=== PATIENT | male | born 1975 | race Caucasian/White ===

== ENCOUNTER 2017-05-27 15:19 | Emergency (ER) | payer OTHER ==
[~2017-05-27] VITALS: Ht 175.3 cm; Wt 113.4 kg
[~2017-05-27 15:19] MED LIST: ADVIL200 M2 PO; CYCLOBENZAPRINE10 M1 PO; DEEP SEA44 ML NAS; FUROSEMIDE20 M1 PO; LIDOCAINE1 EACH TOP; LIPITOR10 M1 PO; LOVENOX120 MG/0.1 SC; MAGNESIUM OXID400 M1 PO; MEDROL4 M2 PO; MONTELUKAST SOD10 M1 PO; NAPROSYN500 M1 PO; NAPROXEN500 M2 PO; SENNA PLUS TAB1 EACH PO; SODIUM CHLORIDE1 G2 PO; VALIUM2 M1 PO
--- NOTE | 2017-05-27 15:38 | ED GENERAL ADULT ---
See Addendum History of Present Illness General Chief Complaint: General Adult Stated Complaint: SIB DR. BLACK Source: patient Exam Limitations: no limitations Vital Signs & Intake/Output Vital Signs & Intake/Output Vital Signs Date Time Temp Pulse Resp B/P B/P Pulse O2 O2 Flow FiO2 Mean Ox Delivery Rate 05/27 2125 97.3 87 18 106/65 98 05/27 1652 98.1 85 16 99/62 97 Room Air 05/27 1532 97.4 95 20 122/81 97 Room Air Allergies Coded Allergies: NSAIDS (Non-Steroidal Anti-Inflamma (PER PT CANT TAKE DUE TO LIVER 05/27/17) codeine (PER PT VERY RAPID HEART RATE 05/27/17) Triage Note: PT STATES HE WAS SENT IN BY DR. BLACK TO HAVE FLUID DRAINED FROM HIS ABD. PT STATES THE LAST TIME HE WAS HERE HE HAD A SAMPLE TAKEN BUT NEVER HAD A "DECENT AMOUNT TAKEN OUT". PT REPORTS HAVING A HARD TIME BREATHING WITH ALL THE FLUID ON THEM. Triage Nurses Notes Reviewed? yes Onset: Gradual Duration: week(s): (3), constant, continues in ED, getting worse Timing: single episode today Injury Environment: home Severity: mild, moderate Severity Numbers: 5 No Modifying Factors: none HPI: 41-year-old male past medical history of newly diagnosed liver cancer sent in by Dr. black for evaluation of ascites. Patient states that over the past few weeks and she was diagnosed with liver cancer he has had gradually increasing amounts of fluid and Is getting the point now it's making it difficult for him to breathe and becoming painful. He had a diagnostic paracentesis done but never therapeutic 1. He denies any fevers or significant abdominal pain. No chest pain or hemoptysis. He currently is not on chemotherapy. He is anticoagulated. (Luis HERNANDEZ,Dragan) Reconcile Medications Cyclobenzaprine HCl 10 MG TABLET 1 TAB PO TID PRN MUSCLE SPASM Enoxaparin Sodium (Lovenox) 120 MG/0.8 ML SYRINGE 1 INJ SC BID CLOT . Furosemide 20 MG TABLET 1 TAB PO DAILY PRN edema . Lidocaine 5 % ADH..PATCH 1 PAT TOP DAILY PAIN . Magnesium Oxide (Magnesium) 400 MG CAPSULE 1 CAP PO DAILY SUPPLEMENT ( Reported) Montelukast Sodium 10 MG TABLET 1 TAB PO DAILY allergies/resp. (Reported) Naproxen (Naprosyn) 500 MG TABLET 1 TAB PO BID PRN back pain Sennosides/Docusate Sodium (Senna Plus Tablet) 8.6 MG-50 MG TABLET 1 TAB PO BID PRN CONSTIPATION . Sodium Chloride 1 GRAM TABLET 1 TAB PO TID SUPPLEMENT (Reported) Sodium Chloride (Deep Sea) 0.65 % SPRAY 2 SPRAY [place] Q4P PRN CONGESTION . (Omari Wiggins) Past History Travel History Traveled to [place] past 21 day No Medical History Any Pertinent Medical History? 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 No (Dragan Whitney) Review of Systems Review of Systems Constitutional: Reports: no symptoms. EENTM: Reports: no symptoms. Respiratory: Reports: see HPI, short of breath. Cardiovascular: Reports: peripheral edema. GI: Reports: see HPI, bloating, distention. Genitourinary: Reports: no symptoms. Musculoskeletal: Reports: no symptoms. Skin: Reports: no symptoms. Neurological/Psychological: Reports: no symptoms. Hematologic/Endocrine: Reports: no symptoms. Immunologic/Allergic: Reports: no symptoms. All Other Systems: Reviewed and Negative (Dragan Whitney) Physical Exam Physical Exam General Appearance: well developed/nourished, no apparent distress, alert, awake , obese Head: atraumatic, normal appearance Eyes: Bilateral: PERRL, EOMI, other (jaundice). Ears, Nose, Throat: normal pharynx, normal ENT inspection, hearing grossly normal Neck: normal inspection, supple, full range of motion Respiratory: normal breath sounds, chest non-tender, no respiratory distress, lungs clear Cardiovascular: regular rate/rhythm, normal peripheral pulses Peripheral Pulses: 2+ radial (R), 2+ radial (L) Gastrointestinal: normal bowel sounds, soft, non-tender, distention, large volume ascites, multiple striae and ecchymosis Back: normal inspection, normal range of motion, no vertebral tenderness Extremities: normal range of motion, nonpitting edema present bilaterally Neurologic/Psych: no motor/sensory deficits, awake, alert, oriented x 3 Skin: intact, normal color, warm/dry Lymphatic: no anterior cervical estefani Core Measures ACS in differential dx? No CVA/TIA Diagnosis: No Sepsis Present: No Sepsis Focused Exam Completed? No (Luis HERNANDEZ,Dragan) Progress Differential Diagnoses I considered the following diagnoses in my evaluation of the patient: [Ascites, liver cancer, spontaneous bacterial peritonitis, sepsis] Plan of Care: Orders Procedure Date/time Status Add-on Test (ER Only) 05/27 1738 Active CULTURE,BODY FLUID 05/27 1733 Active CYTOLOGY SPECIMEN 05/27 1733 Active BODY FLUID TOTAL PROTEIN 05/27 1733 Complete BODY FLUID CELL COUNT 05/27 1733 Complete BODY FLUID ALBUMIN 05/27 173 Complete ALBUMIN 05/27 173 Complete PARTIAL THROMBOPLASTIN TIME 05/27 160 Complete PROTHROMBIN TIME 05/27 160 Complete COMPREHENSIVE METABOLIC PANEL 05/27 153 Complete CBC WITHOUT DIFFERENTIAL 05/27 1538 Complete Laboratory Tests 05/27/17 1830: Fluid WBC 200 H, Fld Total RBCs Counted 1000 H 05/27/17 1830: Albumin < 1.0 L, Lymphocytes 17, % Normal PMNs 3, Misc Hematology Test , Fluid Total Protein < 2.0, Fluid Albumin < 1.0 05/27/17 1601: Anion Gap 14, Estimated GFR > 60, BUN/Creatinine Ratio 27.5 H, Glucose 129 H, Calcium 9.7, Total Bilirubin 13.8 H, AST 330 H, ALT 103 H, Alkaline Phosphatase 396 H, Total Protein 6.8, Albumin 2.6 L, Globulin 4.2, Albumin/ Globulin Ratio 0.6 L, PT 14.6 H, INR 1.40 H, APTT 49 H, CBC w Diff MAN DIFF ORDERED, RBC 4.59 L, MCV 93.0, MCH 31.0, RDW 19.5 H, MPV 8.6, Segmented Neutrophils 78 H, Band Neutrophils 3, Lymphocytes 8 L, Monocytes 11 H, Platelet Estimate ADEQUATE, Poikilocytosis 1+, Anisocytosis 1+, Macrocytic Cells FEW, Target Cells FEW, PUBS MCHC 33.3 Microbiology 05/27 1830 BODY FLUID: Body Fluid Culture - RECD 05/27 1830 BODY FLUID: Gram Stain - RECD Patient seen and evaluated. He has a very large amount of abdominal ascites. Making it difficult for him to breathe. He was just diagnosed with liver cancer. He denies any fevers or chills. Patient had a diagnostic and therapeutic paracentesis done in the ER performed by Omari Dubose. Patient reports feeling much much better. 50 g of albumin was ordered to replace the 6 L that we removed. Depending on the results of the ascites evaluation will determine the patient's disposition. Evaluation of the patient's ascites fluid does not reveal any evidence of infection. He can use to feel much better and the paracentesis. Patient does not ambulate at baseline. He does not feel dizzy or lightheaded. No chest pain shortness of breath or abdominal pain. There is no leakage of fluid from the paracentesis site. Patient is not orthostatic. He is feeling well. He has a follow-up with his oncologist on Wednesday. He has a follow-up also tomorrow for an MRI. Discussed return precautions in detail. Patient is nontoxic-appearing and agrees the plan. Case discussed with Dr. March and he agrees Initial ED EKG: none (Dragan Whitney) Departure Departure Disposition: HOME OR SELF CARE Condition: Stable Clinical Impression Primary Impression: Ascites Qualifiers: Ascites type: malignant Qualified Code: R18.0 - Malignant ascites Referrals: Beth POLANCO,Shaw Graham (PCP/Family) Additional Instructions: Make a follow-up appointment with her primary care doctor and oncologist as soon as possible. Monitor your symptoms return with any concerns. Departure Forms: Customer Survey General Discharge Information (Dragan Whitney) PA/BLAST FURNACE TENDER Co-Sign Statement Statement: ED Attending supervision documentation- x I saw and evaluated the patient. I have also reviewed all the pertinent lab results and diagnostic results. I agree with the findings and the plan of care as documented in the PA's/BLAST FURNACE TENDER's documentation. [] I have reviewed the ED Record and agree with the PA's/BLAST FURNACE TENDER's documentation. [] Additions or exceptions (if any) to the PAs/BLAST FURNACE TENDER's note and plan are summarized below: [] (Benny POLANCO,Jaydon) Procedures Additional Procedures Progress: Paracentesis was advised to be performed by me Discussed risks and benefits with patient was signed consent Using ultrasound initially significantly ascites was noted to the right quadrant markings were made Using sterile technique of chlorhexidine and then was used approximate 10 mL of 1% lidocaine was used for local anesthesia Incision was made approximately 3 mm The catheter and trocar were inserted using A Z-technique, straw-colored ascites was removed Approximately 6 L was removed Bandage was placed Patient tolerated well No complications (Omari Wiggins) Critical Care Note Critical Care Note Critical Care Time: non-applicable (Dragan Whitney)
[2017-05-27 16:08] LABS: HEMATOCRIT 42.7 % (42-52); MEAN CORPUSCULAR HGB CONC 33.3 G/DL (33.0-37.0); MEAN PLATELET VOLUME 8.6 FL (7.4-10.4); PLATELET COUNT 253 /CUMM (130-400); RBC DISTRIBUTION WIDTH 19.5 % (11.5-14.5); RED BLOOD CELL CT 4.59 /CUMM (4.70-6.10)
[2017-05-27 17:58] LABS: PT 14.6 SEC (9.4-12.5); PTT 49 SEC (25-37)
[2017-05-27] MEDS ORDERED: MAGNESIUM400 M1 PO (19:17)
[2017-05-27] MEDS ORDERED: SODIUM CHLORIDE1 G2 PO (19:18)
[2017-05-27 21:25] VITALS: BP 106/65
== END 2017-05-27 22:09 ==
LOC: ERH 15:19
PROVIDERS: Physician Assistant Medical
DX: R18.8 Other ascites (principal); C22.9 Malignant neoplasm of liver, not specified as primary or secondary
CPT/HCPCS: 87075; 88305; 96374; P9047

== ENCOUNTER 2017-07-06 16:02 | Inpatient (IN) | payer OTHER ==
[~2017-07-06] VITALS: Ht 177.8 cm; Wt 89.8 kg
[~2017-07-06 16:02] MED LIST changes: +MAGNESIUM400 M1 PO
--- NOTE | 2017-07-06 16:07 | ED GENERAL ADULT ---
History of Present Illness General Chief Complaint: Altered Mental Status Stated Complaint: BIBA AMS Source: patient, family, EMS Exam Limitations: confusion, poor historian Vital Signs & Intake/Output Vital Signs & Intake/Output Vital Signs Date Time Temp Pulse Resp B/P B/P Pulse O2 O2 Flow FiO2 Mean Ox Delivery Rate 07/06 1843 98.6 88 18 118/66 99 Room Air 07/06 1629 97.9 86 16 117/66 95 Room Air Allergies Coded Allergies: NSAIDS (Non-Steroidal Anti-Inflamma (PER PT CANT TAKE DUE TO LIVER 05/27/17) codeine (PER PT VERY RAPID HEART RATE 05/27/17) Reconcile Medications Cyclobenzaprine HCl 10 MG TABLET 1 TAB PO TID PRN MUSCLE SPASM Enoxaparin Sodium (Lovenox) 120 MG/0.8 ML SYRINGE 1 INJ SC BID CLOT . Furosemide 20 MG TABLET 1 TAB PO DAILY PRN edema . Lidocaine 5 % ADH..PATCH 1 PAT TOP DAILY PAIN . Magnesium Oxide (Magnesium) 400 MG CAPSULE 1 CAP PO DAILY SUPPLEMENT ( Reported) Montelukast Sodium 10 MG TABLET 1 TAB PO DAILY allergies/resp. (Reported) Naproxen (Naprosyn) 500 MG TABLET 1 TAB PO BID PRN back pain Sennosides/Docusate Sodium (Senna Plus Tablet) 8.6 MG-50 MG TABLET 1 TAB PO BID PRN CONSTIPATION . Sodium Chloride 1 GRAM TABLET 1 TAB PO TID SUPPLEMENT (Reported) Sodium Chloride (Deep Sea) 0.65 % SPRAY 2 SPRAY [place] Q4P PRN CONGESTION . Triage Nurses Notes Reviewed? yes Onset: Abrupt Duration: day(s):, constant, continues in ED Timing: recent history Injury Environment: home No Modifying Factors: none HPI: 41-year-old male comes into the emergency room for further evaluation of increased weakness and confusion. Symptoms being going on recently for the past couple days. Patient has a history of liver CA that was recently diagnosed and is currently undergoing chemotherapy. He has had some difficulty with ambulation and falling at home. Increase confusion. No vomiting. Past History Travel History Traveled to [place] past 21 day No Medical History Any Pertinent Medical History? 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 No Review of Systems Review of Systems Constitutional: Reports: see HPI. EENTM: Reports: no symptoms. Respiratory: Reports: no symptoms. Cardiovascular: Reports: no symptoms. GI: Reports: see HPI. Genitourinary: Reports: no symptoms. Musculoskeletal: Reports: no symptoms. Skin: Reports: no symptoms. Neurological/Psychological: Reports: see HPI. Hematologic/Endocrine: Reports: no symptoms. Immunologic/Allergic: Reports: no symptoms. All Other Systems: Reviewed and Negative Physical Exam Physical Exam General Appearance: alert, awake, lethargic, mild distress, obese Head: atraumatic Eyes: Bilateral: EOMI. Ears, Nose, Throat: normal ENT inspection, hearing grossly normal Neck: normal inspection Respiratory: no respiratory distress Cardiovascular: regular rate/rhythm Gastrointestinal: non-tender, distention Back: decreased range of motion Extremities: pedal edema Neurologic/Psych: awake, oriented x 3 Skin: intact, normal color Core Measures ACS in differential dx? No CVA/TIA Diagnosis: No Sepsis Present: No Sepsis Focused Exam Completed? No Progress Differential Diagnoses I considered the following diagnoses in my evaluation of the patient: Sepsis, SBP, hepatic encephalopathy, UTI, metastatic disease, Plan of Care: Orders Procedure Date/time Status Heart Healthy Diet 07/07 B Active LACTIC ACID 07/06 1907 Active Misc Message 07/06 184 Active ED Holding Orders 07/06 184 Active Admit to inpatient 07/06 184 Active Vital Signs 07/06 184 Active Code Status 07/06 1840 Active BLOOD CULTURE 07/06 1607 Active URINALYSIS 07/06 1607 Complete TROPONIN LEVEL 07/06 1607 Complete PARTIAL THROMBOPLASTIN TIME 07/06 1607 Complete PROTHROMBIN TIME 07/06 1607 Complete LIPASE 07/06 1607 Complete LACTIC ACID 07/06 1607 Complete COMPREHENSIVE METABOLIC PANEL 07/06 1607 Complete CBC WITHOUT DIFFERENTIAL 07/06 1607 Complete AMMONIA LEVEL 07/06 1607 Complete EKG 07/06 1607 Active Laboratory Tests 07/06/17 1909: Lactic Acid Pending 07/06/17 1834: Urine Color [place], Urine Clarity HAZY H, Urine pH 6.0, Ur Specific [place] >= 1.030, Urine Protein NEG, Urine Ketones NEG, Urine Nitrite NEG, Urine Bilirubin NEG@ICTO, Urine Urobilinogen 0.2, Ur Leukocyte Esterase TRACE H, Ur Microscopic SEDIMENT EXAMINED, Urine RBC 50-75 H, Urine WBC 5-10 H, Ur Epithelial Cells RARE, Urine Crystals 1+ CA OX H, Urine Bacteria RARE H, Hyaline Casts 5-10 H, Urine Mucus MOD H, Urine Hemoglobin MOD H, Urine Glucose NEG 07/06/17 1615: Anion Gap 10, Estimated GFR > 60, BUN/Creatinine Ratio 17.8, Glucose 84, Lactic Acid 4.1 H, Calcium 11.2 H, Total Bilirubin 3.9 H, AST 283 H, ALT 82 H, Alkaline Phosphatase 223 H, Ammonia 54 H, Troponin I < 0.01, Total Protein 6.7 , Albumin 2.3 L, Globulin 4.4 H, Albumin/Globulin Ratio 0.5 L, Lipase 85, PT 16.8 H, INR 1.61 H, APTT 50 H, CBC w Diff NO MAN DIFF REQ, RBC 4.57 L, MCV 94.7 H, MCH 30.1, MCHC 31.7 L, RDW 17.4 H, MPV 8.9, Gran % 65.4, Lymphocytes % 22.7, Monocytes % 9.3, Eosinophils % 2.4, Basophils % 0.2, Absolute Granulocytes 9.6 H, Absolute Lymphocytes 3.3, Absolute Monocytes 1.4 H, Absolute Eosinophils 0.4, Absolute Basophils 0 Microbiology 07/06 1607 BLOOD: Blood Culture - ORD 07/06 1607 BLOOD: Blood Culture - ORD Initial ED EKG: normal sinus rhythm, rate (88), low voltage Departure Departure Disposition: STILL A PATIENT Condition: Stable Clinical Impression Primary Impression: Hepatic encephalopathy Referrals: Beth POLANCO,Shaw Graham (PCP/Family) Departure Forms: Customer Survey General Discharge Information Admission Note Spoke With: Selina Fuentes MD Documentation of Exam: Documentation of any treatments & extenuating circumstances including Concerns Regarding Discharge (functional status, medication knowledge or non-compliance, living conditions, etc.) that warrant an admission rather than observation: Patient will require repeat labs. Lactulose. GI consultation. Physical therapy consultation. High risk. Medically not safe for discharge. unsteady and unable to ambulate without falling. GI was consulted and will see patient tomorrow. Critical Care Note Critical Care Note Critical Care Time: non-applicable
[2017-07-06 16:32] LABS: ABSOLUTE BASOPHIL COUNT 0 /CUMM (0.0-0.2); ABSOLUTE EOSINOPHIL COUNT 0.4 /CUMM (0.0-0.7); ABSOLUTE GRANULOCYTE CT 9.6 /CUMM (1.4-6.5); ABSOLUTE LYMPH COUNT 3.3 /CUMM (1.2-3.4); ABSOLUTE MONOCYTE COUNT 1.4 /CUMM (0.10-0.60); BASOPHIL % 0.2 % (0.0-2.0); EOSINOPHIL % 2.4 % (0-5); GRANULOCYTE % 65.4 % (42.2-75.2); HEMATOCRIT 43.3 % (42-52); MEAN CORPUSCULAR HGB 30.1 PG (27.0-31.0); MEAN CORPUSCULAR HGB CONC 31.7 G/DL (33.0-37.0); MEAN CORPUSCULAR VOLUME 94.7 FL (80.0-94.0); MEAN PLATELET VOLUME 8.9 FL (7.4-10.4); PLATELET COUNT 287 /CUMM (130-400); RBC DISTRIBUTION WIDTH 17.4 % (11.5-14.5); RED BLOOD CELL CT 4.57 /CUMM (4.70-6.10); WHITE BLOOD CELL COUNT 14.7 /CUMM (4.8-10.8)
[2017-07-06 16:42] LABS: PT 16.8 SEC (9.4-12.5); PTT 50 SEC (25-37)
--- NOTE | 2017-07-06 20:52 | History & Physical ---
Sanjeev POLANCO,[facility] 07/06/172050: General Information and HPI MD Statement: I have seen and personally examined YOLANDA MCDOWELL and documented this H&P. The patient is a 41 year old M who presented with a patient stated chief complaint of [AMS]. Source of Information: patient, family Exam Limitations: not alert/orientated History of Present Illness: Most of the history is given per the family of the patient. 41y old gentleman with PMH obesity, hyperlipidemia, and back pain last discharged on 05/18/17 found to have multiple hepatic masses with hepatic failure and ascites and thrombus extending to right atrium presenting for altered mental status per the family. The family states that the patient was started on seratinib by Dr. Sevilal around 2.5-3 weeks ago. He has got paracentesis last wednesday with 4L removed. The family has noted that the patient has had 1 week of worsening progressive unsteadyness of his feet. He has had 3 days diffulty walking. Yesterday the patient fell because his knees gave out. The patient had an aid next to him and helped brace him. The patient did not hit his head but the family states it was a hard fall. The patient denies any vision changes, lightheadedness, cp, palpitations, or sweats/feelings of warmth during the fall. The family states that the patient has been having word finding difficulty and then gets frustrated. They state his sentences are no longer making any sense. They also state that his hands are giving out. And will flap/flex after several seconds. The family also states the patient is falling asleep always eating. They state his appetite has been declining since his last admission. Last night the family noticed that the patient did not urinate last night and finally urinated in the emergency department. They state today his urination is very dark. The patient has some with his bowel since Wednesday. The patient's family has also noticed leg swelling which is better with elevation. Diffuse itchiness which has been getting worse. And her chronic cough. The patient states that he has chest tightness. Which only occurs with deep breath. The family states that the patient has had vomiting for the past 8 months. However the patient has never had projectile vomiting until today. The patient was seen to vomit twice during exam. The family states that the vomiting has not gotten worse after chemotherapy. The patient states that his cough causes him to vomit. Diffuse states that the patient was also found to have 2 stress fractures of his spine during our patient imaging. In that the patient does not have any metastases to his bones. The patient denies any fevers or chills. Allergies/Medications Allergies: Coded Allergies: NSAIDS (Non-Steroidal Anti-Inflamma (PER PT CANT TAKE DUE TO LIVER 05/27/17) codeine (PER PT VERY RAPID HEART RATE 05/27/17) Home Med list Cyclobenzaprine HCl 10 MG TABLET 1 TAB PO TID PRN MUSCLE SPASM Enoxaparin Sodium (Lovenox) 120 MG/0.8 ML SYRINGE 1 INJ SC BID CLOT . Furosemide 20 MG TABLET 1 TAB PO DAILY PRN edema . Lidocaine 5 % ADH..PATCH 1 PAT TOP DAILY PAIN . Magnesium Oxide (Magnesium) 400 MG CAPSULE 1 CAP PO DAILY SUPPLEMENT ( Reported) Montelukast Sodium 10 MG TABLET 1 TAB PO DAILY allergies/resp. (Reported) Naproxen (Naprosyn) 500 MG TABLET 1 TAB PO BID PRN back pain Sennosides/Docusate Sodium (Senna Plus Tablet) 8.6 MG-50 MG TABLET 1 TAB PO BID PRN CONSTIPATION . Sodium Chloride 1 GRAM TABLET 1 TAB PO TID SUPPLEMENT (Reported) Sodium Chloride (Deep Sea) 0.65 % SPRAY 2 SPRAY [place] Q4P PRN CONGESTION . Past History Travel History Traveled to [place] past 21 day No Medical History Neurological: NONE EENT: NONE Cardiovascular: hyperlipidemia Respiratory: NONE Gastrointestinal: NONE Hepatic: elevated enzymes Renal: NONE Musculoskeletal: chronic back pain Psychiatric: NONE Endocrine: NONE Blood Disorders: NONE Cancer(s): LIVER CA [employer]PER[employer]OR/Reproductive: NONE History of MRSA: No History of VRE: No History of CDIFF: No Surgical History Surgical History: appendectomy Past Family/Social History Psychosocial History Services at Home: None Review of Systems Review of Systems Constitutional: Reports: see HPI (AMS, decrease appetite). Denies: chills, fever. Cardiovascular: Reports: see HPI (chest tightness), peripheral edema. Respiratory: Reports: cough. GI: Reports: nausea, vomiting. Genitourinary: Reports: see HPI (decrease urine output), discharge. Musculoskeletal: Reports: see HPI (back pain). Neurological/Psychological: Reports: see HPI (aphasia). Exam & Diagnostic Data Last 24 Hrs of Vital Signs/I&O Vital Signs Date Time Temp Pulse Resp B/P B/P Pulse O2 O2 Flow FiO2 Mean Ox Delivery Rate 07/07 0654 98.0 107 16 114/72 95 07/06 2305 97.9 89 18 122/78 94 Room Air 07/06 2233 97.7 97 14 115/83 96 Room Air 07/06 2106 98.0 95 16 115/72 97 Room Air 07/06 1843 98.6 88 18 118/66 99 Room Air 07/06 1629 97.9 86 16 117/66 95 Room Air Intake & Output 07/07 1600 07/07 0800 07/07 0000 Intake Total 240 1000 Output Total 300 Balance -60 1000 Intake, IV 1000 Intake, Oral 240 0 Number 2 Bowel Movements Output, Urine 300 Patient 198 lb Weight Weight Reported by Patient Measurement Method Physical Exam General Appearance Alert, Cooperative, No Acute Distress, jaundace Skin dry oral mucosa HEENT no JVD Cardiovascular Regular Rate, Normal S1, Normal S2 Lungs Clear to Auscultation, Normal Air Movement Abdomen distended abd, tender to palpation Extremities pitting edema, urine very dark color Last 24 Hrs of Labs/Herber: Laboratory Tests 07/07/17 0758: Sodium Pending, Potassium Pending, Chloride Pending, Carbon Dioxide Pending, Anion Gap Pending, BUN Pending, Creatinine Pending, BUN/Creatinine Ratio Pending , CBC w Diff Pending, WBC Pending, RBC Pending, Hgb Pending, Hct Pending, MCV Pending, MCH Pending, MCHC Pending, RDW Pending, Plt Count Pending, MPV Pending 07/07/17 0211: Urinalysis HEAVY H, Urine Color EDMOND, Urine Clarity HAZY H, Urine pH 5.5, Ur Specific Forest 1.025, Urine Protein TRACE H, Urine Ketones NEG, Urine Nitrite NEG, Urine Bilirubin POS@ICTO H, Urine Urobilinogen 1.0, Ur Leukocyte Esterase NEG, Ur Microscopic SEDIMENT EXAMINED, Urine RBC 25-50 H, Urine WBC 3-5 H, Ur Epithelial Cells RARE, Urine Crystals 3+ CA OX H, Urine Bacteria FEW H, Hyaline Casts 1-3 H, Urine Mucus FEW, Urine Hemoglobin LARGE H, Urine Glucose NEG 07/06/17 1909: Lactic Acid 3.8 H 07/06/17 1834: Urine Color EDMOND, Urine Clarity HAZY H, Urine pH 6.0, Ur Specific Forest >= 1.030, Urine Protein NEG, Urine Ketones NEG, Urine Nitrite NEG, Urine Bilirubin NEG@ICTO, Urine Urobilinogen 0.2, Ur Leukocyte Esterase TRACE H, Ur Microscopic SEDIMENT EXAMINED, Urine RBC 50-75 H, Urine WBC 5-10 H, Ur Epithelial Cells RARE, Urine Crystals 1+ CA OX H, Urine Bacteria RARE H, Hyaline Casts 5-10 H, Urine Mucus MOD H, Urine Hemoglobin MOD H, Urine Glucose NEG 07/06/17 1615: Anion Gap 10, Estimated GFR > 60, BUN/Creatinine Ratio 17.8, Glucose 84, Lactic Acid 4.1 H, Calcium 11.2 H, Total Bilirubin 3.9 H, AST 283 H, ALT 82 H, Alkaline Phosphatase 223 H, Ammonia 54 H, Troponin I < 0.01, Total Protein 6.7 , Albumin 2.3 L, Globulin 4.4 H, Albumin/Globulin Ratio 0.5 L, Lipase 85, PT 16.8 H, INR 1.61 H, APTT 50 H, CBC w Diff NO MAN DIFF REQ, RBC 4.57 L, MCV 94.7 H, MCH 30.1, MCHC 31.7 L, RDW 17.4 H, MPV 8.9, Gran % 65.4, Lymphocytes % 22.7, Monocytes % 9.3, Eosinophils % 2.4, Basophils % 0.2, Absolute Granulocytes 9.6 H, Absolute Lymphocytes 3.3, Absolute Monocytes 1.4 H, Absolute Eosinophils 0.4, Absolute Basophils 0 Microbiology 07/07 0340 BLOOD: Blood Culture - RECD 07/07 0237 BLOOD: Blood Culture - RECD 07/07 0211 URINE ROUT: Urine Culture - RECD 07/06 2212 BODY FLUID: Body Fluid Culture - COLB 07/06 2212 BODY FLUID: Gram Stain - COLB Assessment/Plan Assessment: A: 41y old gentleman with PMH obesity, hyperlipidemia, and back pain last discharged on 05/18/17 found to have multiple hepatic masses with hepatic failure and ascites and thrombus extending to right atrium presenting for altered mental status most likely due to hepatic encephalopathy P: #Hepatic encephalopathy in the setting of hepatocellular cancer Head CT: No acute intracranial pathology. LA 4.1 -> 3.8 Ammonia 54 LFT: T bili 3.9, AST 283, ALT 82, ALP 223 Trop <.01 -confirm and continue sorafenib dosing - f/u Orell recommendations -Consult GI for possible SBP -Consult IR for diagnostic paracentesis -Continue fluid restriction 1000 mL daily due to ascites - Continue salt tablets -f/u ascites cell count and differential, total protein, albumin, culture -Continue by mouth lactulose -f/u urine cx to r/o infecious cause #decrease urinary output Most likely due to poor by mouth intake BUN 16, creatinine 0.9 -Hold Lasix -Continue to monitor #hyponatremia Na 131 -cont holding lasix -encourage po intake #hypercalcemia 11.2 -most likely due to malignancy. cont to monitor #Thrombus extending into the right atrium -Continue Lovenox 120 mg twice a day #Nausea/vomiting -Continue Zofran #FULL CODE #DVT prophylaxis with Lovenox As Ranked By This Provider Problem List: 1. Hepatic encephalopathy 2. Liver mass 3. Ascites 4. Hypercalcemia 5. Hyponatremia Core Measures/Misc (02/14) Acute Coronary Syndrome ACS Diagnosis: No Congestive Heart Failure Congestive Heart Failure Diagnosis No Cerebrovascular Accident CVA/TIA Diagnosis: No VTE (View Protocol) VTE Risk Factors Acute Medical Illness No Mechanical VTE Prophylaxis d/t Other No VTE Pharm Prophylaxis d/t NA PharmProphylax ordered Sepsis (View protocol) Sepsis Present: No Samira Berumen 07/07/17 0440: Attending MD Review Statement Attending Statement Attending MD Statement: examined this patient, discuss w/resident/PA/BUS BOY, agreed w/resident/PA/BUS BOY, discussed with family, reviewed EMR data (avail), reviewed images, amended to note Attending Assessment/Plan: CC: altered mentation PMH: Hepatocellular carcinoma, thrombus extending up to right atrium Patient was brought in ER by family for increased lethargy and confusion since 2 days. He fell yesterday. He states that his right knee gave out and he fell forward but people supported him so he did not injure himself. On the day of admission patient could not even drink water and his hand was getting jerky movements so they brought him to ER for further evaluation. After previous discharge patient was started on chemotherapy 3 weeks back, he also undergoes recurrent large volume paracentesis last one done approximately 10 days back. Also endorses some abdominal pain, abdominal distention since the last paracentesis, mildly increased leg swelling as compared to past. He did not have any urination since whole day today, no bowel movement in last 2 days area. No fever, chills, flulike symptoms. He has been getting intermittent nausea and vomiting. Vitals: Temperature 97.9, pulse 86, RR 16, blood pressure 117/66, saturating 95% on room air. On exam: A O 3, cooperative, lethargic, no acute distress, neck supple, JVD normal, no lymphadenopathy, mucosa moist, asterixis present, clonus in lower extremities, otherwise no focal neurological deficit, +2 leg right more than left edema, no obvious skin rashes or inflammation CVS: S1-S2, RRR. RS: Clear to auscultate bilaterally. Abdomen: Soft, distended, tender, bowel sounds present. Labs: WBC 14.7, hemoglobin 13.7, hematocrit 43.3, platelets 287, sodium 131, potassium 4.9, chloride 97, bicarbonate 24, BUN 16, creatinine 0.9, glucose 84, calcium 11.2, lactate 4.1, bilirubin 3.9, AST 283, ALT 82, alkaline phosphatase 223, ammonia 54, lipase 85, INR 1.6 CXR: Unremarkable examination CT head: No acute intracranial pathology Assessment and plan Patient was admitted the month of April for multiple medical problems mainly encephalopathy secondary to hypercalcemia was found to have hepatocellular cancer. Patient also had hypoglycemia and hyponatremia and thrombus extending up to right atrium. His kidney injury resolved and he was discharged on Lovenox and outpatient sorafenib. Fluid restriction of 1000 suggested and salt tablets. Patient's bilirubin was 12.1 June 08, trending down, alkaline phosphatase not changed from previous. Persistent mild hypercalcemia. Today patient presents with altered mentation gradually over last 2-3 days, no bowel movement in last 2 days. Mild abdominal distention with pain. Mildly increased lower extremity swelling. Patient is oriented, follows all instructions, no focal weakness but has asterixis and clonus. Patient appears to have hepatitic encephalopathy probably secondary to dehydration, constipation but at the same time SBP could not be excluded. Itchiness has been stable, less likely GI bleed. His WBC is chronically elevated, no significant fever spike. Diagnostic Paracentesis could not be done in ER. + Suspected hepatitic encephalopathy + Hepatocellular cancer + Hypercalcemia + Hyponatremia + Thrombus extending up to right atrium - Admit to general medicine - Hold Lasix - Continue by mouth lactulose - Continue home doses of Lovenox - Continue fluid restriction - Continue salt tablets - Consult IR for diagnostic paracentesis - Obtain cell count and differential, total protein, albumin, culture - Obtain UA and urine culture - Continue sorafenib - Inform oncologist about patient being in hospital - Consult GI - Decreased the dose of morphine, continue adequate in medication - Supportive care for nausea vomiting Robert POLANCO,[facility] 07/07/17 0654: Resident Review Statement Resident Statement: examined this patient, discussed with financial internship, agreed with financial internship, discussed with family Other Findings: Mr. Mcdowell is 41 year old male with past medical history significant for hepatocellular carcinoma, right atrium thrombus, vertebral compression fracture who presented to ED with chief complaint of confusion. Patient was recently started chemotherapy by Dr. Sevilla. Patient has multiple paracentesis recent one was Wednesday last week, 8L was removed. Patient CC is confusion, weakness, recent fall yesterday. No LOC, dizziness, blurry vision. Patein has persistent dry cough and N/V. He had mild tenderness on abdominal exam. Patient reported increase itching and dark urine. Problem list #Hepatocellular CA #Ascites #Hepatic encephalopathy #Hypernatremia chronic Plan Admit to [facility] Start lactulose Call Dr. Sevilla Call GI Continue home medication including chemotherapy Continue Lovenox CT head LP and send for body fluid tests Hold Lasix UA and urine culture F/U blood culture Fluid restriction 1000 ML Obtain CXR to role out hib fracture after the fall, patient reported chest pain code full DVT lovonex 120 BID Dirt regular
[2017-07-06 23:05] VITALS: BP 122/78
[2017-07-07] VITALS (7 sets, daily range): BP systolic 104–118; BP diastolic 68–80
--- NOTE | 2017-07-07 00:52 | RADIOLOGY REPORT ---
EXAMINATION: XR PORTABLE CHEST CLINICAL INFORMATION: Fall. Shortness of breath. Chest pain. COMPARISON: None TECHNIQUE: Portable frontal view of the chest was obtained. 12:28 AM FINDINGS: Lung volume low. Lungs are clear. No pulmonary vascular congestion. No pleural effusion or pneumothorax. No acute osseous abnormality. IMPRESSION: Unremarkable examination.
--- NOTE | 2017-07-07 00:53 | CT SCAN REPORT ---
EXAMINATION: CT HEAD WITHOUT CONTRAST CLINICAL INFORMATION: Confusion. History of liver cancer. COMPARISON: CT head May 09, 2017 TECHNIQUE: Contiguous axial imaging was performed from the skull base to vertex without intravenous administration of contrast. DLP: 612.82 mGy-cm FINDINGS: There is no evidence of acute intracranial hemorrhage or territorial infarction. No abnormal mass effect or midline shift is seen. Tang to white matter differentiation is well preserved. No extra-axial fluid collections are identified. The ventricles are normal in size. There is no abnormal attenuation within the brain parenchyma. The osseous structures and soft tissues are normal. The mastoid air cells and visualized portions of the paranasal sinuses are well aerated. IMPRESSION: No acute intracranial pathology.
--- NOTE | 2017-07-07 04:42 | Admission Certification ---
Admission Certification Certification Statement - As attending physician, I certify that at the time of - admission, based on clinical presentation, severity of - symptoms, need for further diagnostic testing and - therapeutic interventions, and risk of adverse outcomes - without in-hospital treatment, in my clinical assessment, - this patient requires an acute hospital stay for a minimum - of two nights or longer. I have also considered psychsocial - factors such as support system, advanced age, financial - issues, cognitive issues, and failed out-patient treatments, - past re-admission history, safety of patient, and lack of - compliance as applicable. Specific rationale supporting this admission is: Suspected hepatic encephalopathy
--- NOTE | 2017-07-07 06:59 | Cons- Oncology ---
General Information and HPI Consulting Request Date of Consult: 07/07/17 Requested By: Selina Fuentes MD History of Present Illness: 41-year-old gentleman presumptive diagnosis of hepatocellular carcinoma now admitted increasing lethargy and episodes of falling. Patient recently presented with an alpha-fetoprotein > 30,000 and a CAT scan of the liver demonstrating replacement by tumor. The interventional radiology was concerned about bleeding and deferred a biopsy. Patient was also noted to have hypercalcemia. Patient has been placed on sorafenib. Bilirubin has had a documented decrease from 12 to 4. He has required occasional therapeutic paracenteses. Allergies/Medications Allergies: Coded Allergies: NSAIDS (Non-Steroidal Anti-Inflamma (PER PT CANT TAKE DUE TO LIVER 05/27/17) codeine (PER PT VERY RAPID HEART RATE 05/27/17) Home Med List: Cyclobenzaprine HCl 10 MG TABLET 1 TAB PO TID PRN MUSCLE SPASM Enoxaparin Sodium (Lovenox) 120 MG/0.8 ML SYRINGE 1 INJ SC BID CLOT . Furosemide 20 MG TABLET 1 TAB PO DAILY PRN edema . Lidocaine 5 % ADH..PATCH 1 PAT TOP DAILY PAIN . Magnesium Oxide (Magnesium) 400 MG CAPSULE 1 CAP PO DAILY SUPPLEMENT ( Reported) Montelukast Sodium 10 MG TABLET 1 TAB PO DAILY allergies/resp. (Reported) Naproxen (Naprosyn) 500 MG TABLET 1 TAB PO BID PRN back pain Sennosides/Docusate Sodium (Senna Plus Tablet) 8.6 MG-50 MG TABLET 1 TAB PO BID PRN CONSTIPATION . Sodium Chloride 1 GRAM TABLET 1 TAB PO TID SUPPLEMENT (Reported) Sodium Chloride (Deep Sea) 0.65 % SPRAY 2 SPRAY [place] Q4P PRN CONGESTION . Current Medications: Current Medications Sig/[place] Start time Last Medication Dose Route Stop Time Status Admin Enoxaparin Sodium 120 MG BID 07/07 0200 AC 07/07 SC 0310 Lactulose 30 GM TID 07/07 0200 AC 07/07 PO 0310 Lactulose 0 .STK-MED ONE 07/06 1727 DC PO Lactulose 20 GM ONCE ONE 07/06 1715 DC 07/06 PO 07/06 1716 1729 Lidocaine 1 PAT DAILY 07/07 1000 AC EXT Naproxen 500 MG BID PRN 07/06 2345 AC PO Ondansetron HCl 4 MG Q6P PRN 07/07 0630 AC IV Senna/Docusate Sodium 1 TAB BID PRN 07/06 2345 AC PO Sodium Chloride 1,000 MG TID 07/07 1000 AC PO Sodium Chloride 1,000 ML BOLUS ONE 07/06 1715 DC 07/06 IV 07/06 1814 1729 Review of Systems Review of Systems: Patient now denies headaches. Patient denies new shortness of breath cough chest pain or hemoptysis. She denies nausea vomiting or significant abdominal pain. Patient denies dysuria hematuria. Patient denies focal neurologic deficit. 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 Home Services at Home: None Smoking Status: Never Smoked Exam & Diagnostic Data Vital Signs and I&O Vital Signs Date Time Temp Pulse Resp B/P B/P Pulse O2 O2 Flow FiO2 Mean Ox Delivery Rate 07/07 0654 98.0 107 16 114/72 95 / 2305 97.9 89 18 122/78 94 Room Air 07/06 2233 97.7 97 14 115/83 96 Room Air 07/06 2106 98.0 95 16 115/72 97 Room Air 07/06 1843 98.6 88 18 118/66 99 Room Air 07/06 1629 97.9 86 16 117/66 95 Room Air Intake & Output 07/07 0800 07/07 0000 07/06 1600 Intake Total 240 1000 Output Total 300 Balance -60 1000 Intake, IV 1000 Intake, Oral 240 0 Number 1 Bowel Movements Output, Urine 300 Patient 198 lb Weight Weight Reported by Patient Measurement Method Gen.: in NAD ENT: Subtle Scleral ictericus Chest: Normal respiratory effort, decreased breath sounds Cor: RRR, no extra sounds Abdomen: Soft, bowel sounds hypoactive, ascites Extremities: Without clubbing, cyanosis, or asymmetric edema Neurology: Awake, somewhat lethargic, no definite asterixis Skin: No rashes Last 48 Hours of Lab Results: Laboratory Tests 07/07 07/06 0211 1909 Chemistry Lactic Acid (0.7 - 2.1 mmol/L) 3.8 H Urines Urinalysis HEAVY H Urine Color (YEL,AMB,STR) [place] Urine Clarity (CLEAR) HAZY H Urine pH (5.0 - 8.0) 5.5 Ur Specific [place] (1.001 - 1.035) 1.025 Urine Protein (NEG,<30 MG/DL) TRACE H Urine Ketones (NEG) NEG Urine Nitrite (NEG) NEG Urine Bilirubin (NEG) POS@ICTO H Urine Urobilinogen (0.1 - 1.0 EU/dl) 1.0 Ur Leukocyte Esterase (NEG) NEG Ur Microscopic SEDIMENT EXAMINED Urine RBC (0 - 5 /HPF) 25-50 H Urine WBC (0 - 2 /HPF) 3-5 H Ur Epithelial Cells (NONE,FEW) RARE Urine Crystals 3+ CA OX H Urine Bacteria (NEG/NONE) FEW H Hyaline Casts (0/LPF) 1-3 H Urine Mucus (FEW,NONE) FEW Urine Hemoglobin (NEG) LARGE H Urine Glucose (N MG/DL) NEG 07/06 07/06 1834 1615 Chemistry Sodium (137 - 145 mmol/L) 131 L Potassium (3.5 - 5.1 mmol/L) 4.9 Chloride (98 - 107 mmol/L) 97 L Carbon Dioxide (22 - 30 mmol/L) 24 Anion Gap (5 - 16) 10 BUN (9 - 20 mg/dL) 16 Creatinine (0.7 - 1.2 mg/dL) 0.9 Estimated GFR (>60 ml/min) > 60 BUN/Creatinine Ratio (7 - 25 %) 17.8 Glucose (65 - 99 mg/dL) 84 Lactic Acid (0.7 - 2.1 mmol/L) 4.1 H Calcium (8.4 - 10.2 mg/dL) 11.2 H Total Bilirubin (0.2 - 1.3 mg/dL) 3.9 H AST (17 - 59 U/L) 283 H ALT (21 - 72 U/L) 82 H Alkaline Phosphatase (< 127 U/L) 223 H Ammonia (9 - 30 umol/L) 54 H Troponin I (<0.11 ng/ml) < 0.01 Total Protein (6.3 - 8.2 g/dL) 6.7 Albumin (3.5 - 5.0 g/dL) 2.3 L Globulin (1.9 - 4.2 gm/dL) 4.4 H Albumin/Globulin Ratio (1.1 - 2.2 %) 0.5 L Lipase (23 - 300 U/L) 85 Coagulation PT (9.4 - 12.5 SEC) 16.8 H INR (0.90 - 1.17) 1.61 H APTT (25 - 37 SEC) 50 H Hematology CBC w Diff NO MAN DIFF REQ WBC (4.8 - 10.8 /CUMM) 14.7 H RBC (4.70 - 6.10 /CUMM) 4.57 L Hgb (14.0 - 18.0 G/DL) 13.7 L Hct (42 - 52 %) 43.3 MCV (80.0 - 94.0 FL) 94.7 H MCH (27.0 - 31.0 PG) 30.1 MCHC (33.0 - 37.0 G/DL) 31.7 L RDW (11.5 - 14.5 %) 17.4 H Plt Count (130 - 400 /CUMM) 287 MPV (7.4 - 10.4 FL) 8.9 Gran % (42.2 - 75.2 %) 65.4 Lymphocytes % (20.5 - 51.1 %) 22.7 Monocytes % (1.7 - 9.3 %) 9.3 Eosinophils % (0 - 5 %) 2.4 Basophils % (0.0 - 2.0 %) 0.2 Absolute Granulocytes (1.4 - 6.5 /CUMM) 9.6 H Absolute Lymphocytes (1.2 - 3.4 /CUMM) 3.3 Absolute Monocytes (0.10 - 0.60 /CUMM) 1.4 H Absolute Eosinophils (0.0 - 0.7 /CUMM) 0.4 Absolute Basophils (0.0 - 0.2 /CUMM) 0 Urines Urine Color (YEL,AMB,STR) [place] Urine Clarity (CLEAR) HAZY H Urine pH (5.0 - 8.0) 6.0 Ur Specific [place] (1.001 - 1.035) >= 1.030 Urine Protein (NEG,<30 MG/DL) NEG Urine Ketones (NEG) NEG Urine Nitrite (NEG) NEG Urine Bilirubin (NEG) NEG@ICTO Urine Urobilinogen (0.1 - 1.0 EU/dl) 0.2 Ur Leukocyte Esterase (NEG) TRACE H Ur Microscopic SEDIMENT EXAMINED Urine RBC (0 - 5 /HPF) 50-75 H Urine WBC (0 - 2 /HPF) 5-10 H Ur Epithelial Cells (NONE,FEW) RARE Urine Crystals 1+ CA OX H Urine Bacteria (NEG/NONE) RARE H Hyaline Casts (0/LPF) 5-10 H Urine Mucus (FEW,NONE) MOD H Urine Hemoglobin (NEG) MOD H Urine Glucose (N MG/DL) NEG Imaging/Other Studies: [id number] Assessment/Plan Assessment: 1. Change in mental status-likely multifactorial in origin, occluding hepatic encephalopathy and hypercalcemia. Recommend- Treat encephalopathy Treat hypercalcemia with bisphosphonate therapy Follow-up appropriate laboratory 2. Advanced hepatocellular carcinoma-patient should remain on sorafenib 3. CODE STATUS-patient and family are aware of the critical nature of his disease. No definite decision yet has been made. Once no status improved, will readdress Recommendations: .. Consult Acknowledgment - Thank you for your consult request.
--- NOTE | 2017-07-07 09:14 | PN- Housestaff ---
Oziel POLANCO,Luis 07/07/1714: Subjective Follow-up For: altered mental status hepatocellular carcinoma Subjective: confused, intermittently following commands Review of Systems Constitutional: Reports: see HPI. Objective Last 24 Hrs of Vital Signs/I&O Vital Signs Date Time Temp Pulse Resp B/P B/P Pulse O2 O2 Flow FiO2 Mean Ox Delivery Rate 07/07 0900 94 Room Air 07/07 0745 98 118/70 07/07 0654 98.0 107 16 114/72 95 / 2305 97.9 89 18 122/78 94 Room Air 07/06 2233 97.7 97 14 115/83 96 Room Air 07/06 2106 98.0 95 16 115/72 97 Room Air / 1843 98.6 88 18 118/66 99 Room Air 07/06 1629 97.9 86 16 117/66 95 Room Air Intake & Output 07/07 1600 07/07 0800 07/07 0000 Intake Total 683 382 9490 Output Total 300 Balance 240 -60 1000 Intake, IV 1000 Intake, Oral 240 240 0 Number 1 2 Bowel Movements Output, Urine 300 Patient 89.811 kg Weight Weight Reported by Patient Measurement Method Physical Exam General Appearance: No Acute Distress, confused Cardiovascular: Regular Rate, Normal S1, Normal S2, No Murmurs Lungs: basilar crackles r>l Abdomen: soft distended, mild right sided tenderness on deep palpation Extremities: 3+ lower extremity pitting edema Current Medications: Current Medications Sig/[place] Start time Last Medication Dose Route Stop Time Status Admin Enoxaparin Sodium 120 MG BID 07/07 0200 AC 07/07 SC 0310 Lactulose 30 GM TID 07/07 0200 07/07 PO 0310 Lactulose 0 .STK-MED ONE 07/06 1727 DC PO Lactulose 20 GM ONCE ONE 07/06 1715 DC 07/06 PO 07/06 1716 1729 Lidocaine 1 PAT DAILY 07/07 1000 AC EXT Naproxen 500 MG BID PRN 07/06 2345 AC PO Non-Formulary 0 SEE ADMIN CRITERIA 07/07 729 UNVr Medication ANY Ondansetron HCl 4 MG Q6P PRN 07/07 0630 AC 07/07 IV 0937 Pamidronate Disodium 60 MG ONE ONE 07/07 1030 AC Sodium Chloride 1,000 ML IV 07/07 1829 Rifaximin 550 MG BID 07/07 1009 AC PO Senna/Docusate Sodium 1 TAB BID PRN 07/06 2345 AC PO Sodium Chloride 1,000 MG TID 07/07 1000 AC 07/07 PO 0940 Sodium Chloride 1,000 ML BOLUS ONE 07/06 1715 DC 07/06 IV 07/06 1814 1729 Last 24 Hrs of Lab/Herber Results Last 24 Hrs of Labs/Mics: Laboratory Tests 07/07/17 0758: Anion Gap 9, Estimated GFR > 60, BUN/Creatinine Ratio 21.4, CBC w Diff NO MAN DIFF REQ, RBC 4.40 L, MCV 92.2, MCH 29.9, MCHC 32.5 L, RDW 16.9 H, MPV 9.8, Gran % 73.6, Lymphocytes % 16.0 L, Monocytes % 9.7 H, Eosinophils % 0.2, Basophils % 0.5, Absolute Granulocytes 10.1 H, Absolute Lymphocytes 2.2, Absolute Monocytes 1.3 H, Absolute Eosinophils 0, Absolute Basophils 0.1 07/07/17 0211: Urinalysis HEAVY H, Urine Color [place], Urine Clarity HAZY H, Urine pH 5.5, Ur Specific [place] 1.025, Urine Protein TRACE H, Urine Ketones NEG, Urine Nitrite NEG, Urine Bilirubin POS@ICTO H, Urine Urobilinogen 1.0, Ur Leukocyte Esterase NEG, Ur Microscopic SEDIMENT EXAMINED, Urine RBC 25-50 H, Urine WBC 3-5 H, Ur Epithelial Cells RARE, Urine Crystals 3+ CA OX H, Urine Bacteria FEW H, Hyaline Casts 1-3 H, Urine Mucus FEW, Urine Hemoglobin LARGE H, Urine Glucose NEG 07/06/17 2213: Fluid WBC Cancelled, Fld Total RBCs Counted Cancelled 07/06/17 2213: Fluid Glucose Cancelled, Fluid Total Protein Cancelled, Fluid Albumin Cancelled, Fluid LDH Cancelled, Fluid Amylase Cancelled 07/06/17 1909: Lactic Acid 3.8 H 07/06/17 1834: Urine Color [place], Urine Clarity HAZY H, Urine pH 6.0, Ur Specific [place] >= 1.030, Urine Protein NEG, Urine Ketones NEG, Urine Nitrite NEG, Urine Bilirubin NEG@ICTO, Urine Urobilinogen 0.2, Ur Leukocyte Esterase TRACE H, Ur Microscopic SEDIMENT EXAMINED, Urine RBC 50-75 H, Urine WBC 5-10 H, Ur Epithelial Cells RARE, Urine Crystals 1+ CA OX H, Urine Bacteria RARE H, Hyaline Casts 5-10 H, Urine Mucus MOD H, Urine Hemoglobin MOD H, Urine Glucose NEG 07/06/17 1615: Anion Gap 10, Estimated GFR > 60, BUN/Creatinine Ratio 17.8, Glucose 84, Lactic Acid 4.1 H, Calcium 11.2 H, Total Bilirubin 3.9 H, AST 283 H, ALT 82 H, Alkaline Phosphatase 223 H, Ammonia 54 H, Troponin I < 0.01, Total Protein 6.7 , Albumin 2.3 L, Globulin 4.4 H, Albumin/Globulin Ratio 0.5 L, Lipase 85, PT 16.8 H, INR 1.61 H, APTT 50 H, CBC w Diff NO MAN DIFF REQ, RBC 4.57 L, MCV 94.7 H, MCH 30.1, MCHC 31.7 L, RDW 17.4 H, MPV 8.9, Gran % 65.4, Lymphocytes % 22.7, Monocytes % 9.3, Eosinophils % 2.4, Basophils % 0.2, Absolute Granulocytes 9.6 H, Absolute Lymphocytes 3.3, Absolute Monocytes 1.4 H, Absolute Eosinophils 0.4, Absolute Basophils 0 Microbiology 07/07 0340 BLOOD: Blood Culture - RECD 07/07 0237 BLOOD: Blood Culture - RECD 07/07 0211 URINE ROUT: Urine Culture - RECD 07/06 221 BODY FLUID: Body Fluid Culture - CAN Cancelled: SPECIMEN NOT RECEIVED. 07/06 2212 BODY FLUID: Gram Stain - CAN Cancelled: SPECIMEN NOT RECEIVED. Assessment/Plan Assessment: 41y old gentleman with PMH obesity, hyperlipidemia, and back pain last discharged on 05/18/17 found to have multiple hepatic masses with hepatic failure and ascites and thrombus extending to right atrium presenting for altered mental status most likely due to hepatic encephalopathy Hepatic encephalopathy in the setting of hepatocellular cancer Head CT: No acute intracranial pathology. 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 Hepatic encephalopathy 2. Hyponatremia 3. Ascites 4. Liver mass 5. Hypercalcemia Pain Ratin Pain Location: abdominal Pain Goal: Pain 4 or less Pain Plan: prn Tomorrow's Labs & Rationales: cbc, bep Gina POLANCO,Selina 07/07/17 1342: Attending MD Review Statement Attending Statement Attending MD Statement: examined this patient, discuss w/resident/PA/FAMILY PHYSICIAN, agreed w/resident/PA/FAMILY PHYSICIAN, reviewed EMR data (avail) Attending Assessment/Plan: 41M PMH HTN, HLD, recently diagnosed hepatocellular carcinoma on Sorafenib, IVC thrombus on Lovenox, admitted for metabolic encephalopathy secondary to cirrhosis and hypercalcemia, with ascites on exam. Patient remains confused today but his mental status is improved from yesterday. He is more coherent, though he still becomes confused and tangential. He is A& Ox2. Ascites appreciated on exam. He has two chronic buttock wounds. 1. Metabolic encephalopathy 2. Hepatocellular carcinoma 3. Cirrhosis 4. Hypercalcemia 5. Elevated LFTs 6. Chronic buttock wounds Plan - Will have to go to cardiac monitored floor for the next 8 hours for Pamidronate infusion, then can return to general medicine floor - Will perform paracentesis - Follow GI and oncology recommendations - Monitor calcium, renal function, liver function tests - Continue Lactulose and Rifaximin - Continue home medications - DVT PPx
--- NOTE | 2017-07-07 09:41 | Cons- Wound Care ---
General Information and HPI Consulting Request Date of Consult: 07/07/17 Requested By: Selina Fuentes MD Reason for Consult: Bilateral buttock ulcers present on admission History of Present Illness: Patient is unfortunate 41-year-old with hepatocellular carcinoma admitted with altered mental status and found to have 2 small bilateral buttock ulcers present on admission, these have been present for several weeks having started at home Allergies/Medications Allergies: Coded Allergies: NSAIDS (Non-Steroidal Anti-Inflamma (PER PT CANT TAKE DUE TO LIVER 05/27/17) codeine (PER PT VERY RAPID HEART RATE 05/27/17) Home Med List: Cyclobenzaprine HCl 10 MG TABLET 1 TAB PO TID PRN MUSCLE SPASM Enoxaparin Sodium (Lovenox) 120 MG/0.8 ML SYRINGE 1 INJ SC BID CLOT . Furosemide 20 MG TABLET 1 TAB PO DAILY PRN edema . Lidocaine 5 % ADH..PATCH 1 PAT TOP DAILY PAIN . Magnesium Oxide (Magnesium) 400 MG CAPSULE 1 CAP PO DAILY SUPPLEMENT ( Reported) Montelukast Sodium 10 MG TABLET 1 TAB PO DAILY allergies/resp. (Reported) Naproxen (Naprosyn) 500 MG TABLET 1 TAB PO BID PRN back pain Sennosides/Docusate Sodium (Senna Plus Tablet) 8.6 MG-50 MG TABLET 1 TAB PO BID PRN CONSTIPATION . Sodium Chloride 1 GRAM TABLET 1 TAB PO TID SUPPLEMENT (Reported) Sodium Chloride (Deep Sea) 0.65 % SPRAY 2 SPRAY [place] Q4P PRN CONGESTION . 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 Home Services at Home: None Smoking Status: Never Smoked Exam & Diagnostic Data Vital Signs and I&O Vital Signs Result Date Time Pulse Ox 94 07/07 0900 O2 Delivery Room Air 07/07 899 B/P 118/70 07/07 0645 Pulse 98 07/07 0645 Temp 98.0 07/07 0654 Resp 16 07/07 0654 Intake & Output 07/07 0000 02/06 1600 02/06 0800 Intake Total 1000 Output Total Balance 1000 Intake, IV 1000 Intake, Oral 0 Physical Exam: Exam of the left buttock shows a 1.5 x 0.8 cm stage III pressure ulcer with red fill without undermining sinus tracking or exposed bone over the left attic right buttock has a symmetrical smaller ulcer approximately 1 x 0.3 cm stage III. The patient has markedly reduced albumin suggesting malnutrition. Assessment/Plan Impression/Plan: 41-year-old hepatocellular carcinoma malnutrition admitted with altered mental status and found to have bilateral stage III buttock ulcers. Recommend offloading low air loss mattress and use of thin DuoDERM changed every 2-3 days. Consult Acknowledgment - Thank you for your consult request.
[2017-07-07 09:44] LABS: ABSOLUTE BASOPHIL COUNT 0.1 /CUMM (0.0-0.2); ABSOLUTE EOSINOPHIL COUNT 0 /CUMM (0.0-0.7); ABSOLUTE GRANULOCYTE CT 10.1 /CUMM (1.4-6.5); ABSOLUTE LYMPH COUNT 2.2 /CUMM (1.2-3.4); ABSOLUTE MONOCYTE COUNT 1.3 /CUMM (0.10-0.60); BASOPHIL % 0.5 % (0.0-2.0); EOSINOPHIL % 0.2 % (0-5); GRANULOCYTE % 73.6 % (42.2-75.2); HEMATOCRIT 40.5 % (42-52); MEAN CORPUSCULAR HGB 29.9 PG (27.0-31.0); MEAN CORPUSCULAR HGB CONC 32.5 G/DL (33.0-37.0); MEAN CORPUSCULAR VOLUME 92.2 FL (80.0-94.0); MEAN PLATELET VOLUME 9.8 FL (7.4-10.4); PLATELET COUNT 267 /CUMM (130-400); RBC DISTRIBUTION WIDTH 16.9 % (11.5-14.5); WHITE BLOOD CELL COUNT 13.7 /CUMM (4.8-10.8)
--- NOTE | 2017-07-07 16:03 | Cons- Gastroenterology ---
General Information and HPI Consulting Request Date of Consult: 07/07/17 Requested By: Selina Fuentes MD Reason for Consult: I was notified by the hospitalist service earlier this a.m. of a request for a semi-elective GI consult to assess altered mental status in a patient with end stage multi-focal hepatoma& hyperCa2= due to underlying malignancy. Source of Information: old records Exam Limitations: clinical condition, confusion History of Present Illness: (*Please refer to previous 05/10/17: inpt GI consultation, by Dr. Marlon Jaeger. * Extensive records reviewed). Unfortunate 41 y/o male, with recently diagnosed unresectable multifocal hepatoma, by imaging studies & by markedly elevated AFP (> 32K), in 04/2017. Furthermore, he is not a candidate for RFA/microwave ablation, base on it's size , as it has replaced a huge amount of liver parenchyma. IR deferred a liver bx for fear of bleeding, but this level of AFP is virtually diagnostic for HCC, in and of itself. The patient was receiving outpatient Sorafenib, per Dr. Sevilla. Technically, he is still a full code, but his prognosis is grave, & apparently, a repeat family meeting for goals of care is pending, per oncology. The patient is cirrhotic with ascites. Previous abdominal taps were negative for SBP, with negative ascitic cytology. 05/17/17: Ascitic fluid- SAAG > 1.6, protein < 2.0 (c/w liver/portal HTN etiology of ascites), 1000 RBC, 200 WBC with 3% PMN = absolute #PMN 6. Apparently, there is no history of EtOH, IVDA, blood transfx, tattoos, needlesticks, etc. Previous hepatitis serologies & HIV- negative, with AMANDA negative and normal ferritin. The patient had a history of obesity & HLD. Most likely, he had REID progressing to cirrhosis, ultimately to HCC. Urine toxicology screens & alcohol levels were negative. The patient was recently admitted to [facility] 05/09/17 to 05/18/17, for altered mental status, elevated LFTs, cirrhosis with MELD-Na 27, back pain, PHYLICIA, hypoglycemia & hypercalcemia, with serum calcium up to 17.8. He was treated with IV saline, Pamidronate, & Calcitonin. He was seen by oncology and endocrine, and his hypercalcemia was felt to be a humeral effect of widespread malignancy. 05/12/17 & 05/15/17: MRI abdomen with hepatoma protocol- abnormal filling defect within the intrahepatic IVC, extending up to the right atrium, highly suspicious for nonocclusive tumor thrombus, with recanalization of the umbilical vein. No significant abdominal varices seen. No dilated ducts. Multiple large confluent suspicious enhancing masses throughout the right and left lobes of the liver. Small amount of ascites. 05/14/17: Bone scan revealed left #7th, 8th, & 9th rib lesions from recent fractures, possibly from bony metastases. His back pain was managed with Lidoderm patch & morphine. He had osteopenia & DJD. The patient apparently lost 80 pounds over the prior 6 months, before his 04/2017 admission, perhaps voluntarily. The patient presented to [facility] 07/06/17 at 4:02 PM, BIBA from home, with altered mental status, which apparently had improved in 04/2017 with correction of his hyperCa2+. Upon arrival, BP 117/66, P 86, R 16, T 97.9, O2 sat RA 95%. He was hemodynamically stable & afebrile. 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 He apparently was lethargic and confused for 2 days. He was jaundiced upon presentation. He was given IV NS & lactulose in the ER. He was cultured in the ER and admitted to General Medicine 07/06/17. He was seen by oncology. *He was transferred to Telemetry 07/07/17, in order to receive Pamidronate. He just had an abdominal tap by the medical housestaff to r/o SBP, prior to my GI consult. *Although the patient was reportedly more alert than yesterday, he was only Ox1 (person), & occasionally oriented to place, not to time- "2000," & so it was extremely difficult to get any further meaningful history from the patient, aside from what the computer records stated. 12/11/09: AMANDA-neg 1:40, ferritin 244.2 05/09/17: Utox- neg. [Tylenol] < 10, [EtOH] < 10, salicylate < 1.0 05/09/17: TSHR 2.63, mono spot- neg. 05/09/17: Hep A Ab, Hep Bs Ag, Hep B core Ab, & HepC Ab- all neg. 05/11/17: nl CEA 1.6 05/11/17: *AFP 32,389 (< 6.1); HIV- neg. 05/11/17: elev PTH 57 (14-27), *SPEP- faint M-spike in gamma globulin region, * IPEP- faint IgG lambda monoclonal band, c/w MGUS. 05/12/17: UPEP- neg. 07/06/17: Admission labs 4:15 p.m.- WBC 14.7 (65% gran/9 gran Ab), H/H 13.7/43.3 , MCV 94.7, RDW 17.4, PLT 287, PT 16.8, INR 1.61, PTT 50, glucose 84, BUN/Cr 16/ 0.9, GFR > 60, Na 131, K 4.9, HCO3 24, AG 10, *lactate 4.1-> 3.8, lipase 85, *Ca 11.2, *albumin 2.3, globulin 4.4, TBil 3.9, alk phos 223, AST 283, ALT 82, *NH3 54, troponin < 0.01. 07/06/17: U/A- hazy, jane, > 1.030, 6.0, 50-75 RBC, 5-10 WBC, 5-10 hyaline casts, 1+ Ca ox, rare bact, rare epith, mod Hgb, neg icto, urobil 0.2, neg prot; neg nitrite, tr esterase. 07/07/17: WBC 13.7 (74% gran/10 gran Ab), H/H 13.1/40.5, MCV 92.2, RDW 16.9, PLT 267, BUN/Cr 15/0.7, GFR > 60, Na 130, K 5.0, HCO3 20, AG 9, Ca 11.2, albumin 2.1 , globulin 4.2, TBil 3.6, DBil 3.0, alk phos 207, AST 271, ALT 84. 07/07/17: *Ascitic tap- 160 RBC, 51 WBC (9 PMN/46 L/45 mono-meso), with absolute # PMN= 4.59 polys; *no SBP) 07/07/17: UC- pending. 07/07/17: BC x 2- pending. 07/07/17: Ascitic gram stain, C&S- pending. 07/06/17: EKG- NSR @ 88, nl axis, nl intervals, low voltage, PRWP, NSST without acute change. 07/06/17: XRY-PORTABLE CHEST XRAY- Unremarkable examination. 07/06/17: CT HEAD W/O IV CONTRAST- No acute intracranial pathology. Allergies/Medications Allergies: Coded Allergies: NSAIDS (Non-Steroidal Anti-Inflamma (PER PT CANT TAKE DUE TO LIVER 05/27/17) codeine (PER PT VERY RAPID HEART RATE 05/27/17) Home Med List: Cyclobenzaprine HCl 10 MG TABLET 1 TAB PO TID PRN MUSCLE SPASM Enoxaparin Sodium (Lovenox) 120 MG/0.8 ML SYRINGE 1 INJ SC BID CLOT . Furosemide 20 MG TABLET 1 TAB PO DAILY PRN edema . Lidocaine 5 % ADH..PATCH 1 PAT TOP DAILY PAIN . Magnesium Oxide (Magnesium) 400 MG CAPSULE 1 CAP PO DAILY SUPPLEMENT ( Reported) Montelukast Sodium 10 MG TABLET 1 TAB PO DAILY allergies/resp. (Reported) Naproxen (Naprosyn) 500 MG TABLET 1 TAB PO BID PRN back pain Sennosides/Docusate Sodium (Senna Plus Tablet) 8.6 MG-50 MG TABLET 1 TAB PO BID PRN CONSTIPATION . Sodium Chloride 1 GRAM TABLET 1 TAB PO TID SUPPLEMENT (Reported) Sodium Chloride (Deep Sea) 0.65 % SPRAY 2 SPRAY [place] Q4P PRN CONGESTION . Current Medications: Current Medications Sig/[place] Start time Last Medication Dose Route Stop Time Status Admin Enoxaparin Sodium 120 MG BID 07/07 0200 AC 07/07 SC 0310 Lactulose 30 GM TID 07/07 0200 AC 07/07 PO 1639 Lidocaine 1 PAT DAILY 07/07 1000 AC EXT Naproxen 500 MG BID PRN 07/06 2345 AC PO Ondansetron HCl 4 MG Q6P PRN 07/07 0630 AC 07/07 IV 0937 Pamidronate Disodium 60 MG ONE ONE 07/07 1030 AC 07/07 Sodium Chloride 1,000 ML IV 07/07 1829 1453 Rifaximin 550 MG BID 07/07 1009 AC 07/07 PO 1640 Senna/Docusate Sodium 1 TAB BID PRN 07/06 2345 AC PO Sodium Chloride 1,000 MG TID 07/07 1000 AC 07/07 PO 0940 Sodium Chloride 1,000 ML BOLUS ONE 07/06 1715 DC 07/06 IV 07/06 1814 1729 Sorafenib 200 MG 1700 07/07 1700 AC 07/07 PO 1641 Past History Travel History Traveled to [place] past 21 day No Medical History Blood Transfusion Hx: No Neurological: intermittent confusion- hyperCa2+, PSE, HCC EENT: NONE Cardiovascular: hyperlipidemia Respiratory: NONE Gastrointestinal: NONE Hepatic: cirrhosis, hepatic encephalopathy, elevated enzymes, multifocal HCC- unresectable, not cndidate for RFA- on Sorafenib Renal: resolved PHYLICIA- 04/2017 Musculoskeletal: chronic back pain, osteopenia Psychiatric: NONE Endocrine: hypoglycemia, osteopenia, hyperCa2+ due to malignancy Blood Disorders: coagulopathy (cirrhotic/HCC) Cancer(s): LIVER CA/HCC [facility] PULP/Reproductive: NONE Other Medical Hx: Unobtainable from pt Surgical History Surgical History: appendectomy Family History Relations & Conditions If Any: Relation not specified for: Family history unobtainable Psychosocial History Where Do You Live? Home Who Do You Live With? unknown- possibly father, Jai CarpenterSr mayra. Services at Home: None Primary Language: Bulgarian Smoking Status: Never Smoked ETOH Use: denies use (reportedly) Illicit Drug Use: denies illicit drug use (reportedly) Living Will? unknown Power of Patent Legal Assistant/HCP? unknown Other Social History: Unobtainable Functional Ability ADLs Unknown: dressing, eating, toileting, bathing. Ambulation: unknown IADLs Unknown: shopping, housework, finances, food prep, telephone, transportation, medication admin. Employment History Employment: unknown Profession/Employer: unknown ECHO Results (as available) Date of last Echo 05/13/17 EF% 65 Review of Systems Review of Systems: Full 14 point ROS currently unobtainable from patient, due to altered mental status. Review of Systems All Other Systems: Reviewed and Negative (unobtainable from pt) Exam & Diagnostic Data Vital Signs and I&O Vital Signs Date Time Temp Pulse Resp B/P B/P Pulse O2 O2 Flow FiO2 Mean Ox Delivery Rate 07/07 1447 98.4 97 20 104/68 97 Room Air Room Air 07/07 1400 97.8 80 20 116/80 97 Room Air 07/07 0900 94 Room Air 07/07 0745 98 118/70 07/07 0654 98.0 107 16 114/72 95 07/06 2305 97.9 89 18 122/78 94 Room Air 07/06 2233 97.7 97 14 115/83 96 Room Air 07/06 2106 98.0 95 16 115/72 97 Room Air 07/06 1843 98.6 88 18 118/66 99 Room Air Intake & Output 07/07 1600 07/07 0400 07/06 1600 07/06 0400 07/05 1600 07/05 0400 Intake Total 490 1000 Output Total 750 Balance -260 1000 Intake, IV 10 1000 Intake, Oral 480 0 Number 3 Bowel Movements Output, Urine 750 Patient 198 lb Weight Weight Reported by Patient Measurement Method Physical Exam: Well-developed, somewhat malnourished, chronically ill appearing, cirrhotic yellow male, in no apparent distress. Sclera icteric. Conjunctiva pink. Oropharynx clear. Slightly dry mucucs membranes. No oral thrush. No aphthous ulcers. There is no adenopathy, thyromegaly, or JVD. No peripheral stigmata of inflammatory bowel disease on exam. No definite spiders on the anterior chest wall, nor any gynecomastia. Spine exam: deferred (patient in process of getting abdominal tap). Lungs: clear to A&P, with slight decreased BS at the bases B/L. No wheezing, rales, or rhonchi. Heart exam: regular rate rhythm, S1 and S2, without any murmur, rub, or gallop. Abdominal exam: normal bowel sounds, obese belly, mild RUQ tenderness on deep palpation, without guarding or rebound. Negtaive Smatr sign. Enlarged nodular liver, approximately 24 cm by percussion, with tender edge. No definite mass. Borderline palpable spleen tip. Positive fluid shift. No pulsatile mass. No epigastric bruit. Digital rectal exam: deferred for physician/internist (as patient in midst of abdominal tap). B/L stage III gluteal ulcers, max 1.5 cm. Extremities: without cyanosis or clubbing. 1-2+ pitting edema B/L LE, mostly pedal. B/L ALPS. No palpable cords. Mild DJD. No rash. No palmar erythema. No Dupuytren's contractures. Distal pulses 2+ bilaterally. DTRs 2+ bilaterally. Motor 4/5 B/L. Alert and oriented x 1 ( person). Able to follow a few simple commands. Patient not fully cooperative with CN testing. Currently, no tremor or asterixis. Results Pertinent Lab Results: Laboratory Tests 07/07 07/07 07/07 1600 1600 0758 Chemistry Sodium (137 - 145 mmol/L) 130 L Potassium (3.5 - 5.1 mmol/L) 5.0 Chloride (98 - 107 mmol/L) 100 Carbon Dioxide (22 - 30 mmol/L) 20 L Anion Gap (5 - 16) 9 BUN (9 - 20 mg/dL) 15 Creatinine (0.7 - 1.2 mg/dL) 0.7 Estimated GFR (>60 ml/min) > 60 BUN/Creatinine Ratio (7 - 25 %) 21.4 Calcium (8.4 - 10.2 mg/dL) 11.2 H Total Bilirubin (0.2 - 1.3 mg/dL) 3.6 H Direct Bilirubin (< 0.4 mg/dL) 3.0 H AST (17 - 59 U/L) 271 H ALT (21 - 72 U/L) 84 H Alkaline Phosphatase (< 127 U/L) 207 H Total Protein (6.3 - 8.2 g/dL) 6.3 Albumin (3.5 - 5.0 g/dL) 2.1 L Hematology CBC w Diff NO MAN DIFF REQ WBC (4.8 - 10.8 /CUMM) 13.7 H RBC (4.70 - 6.10 /CUMM) 4.40 L Hgb (14.0 - 18.0 G/DL) 13.1 L Hct (42 - 52 %) 40.5 L MCV (80.0 - 94.0 FL) 92.2 MCH (27.0 - 31.0 PG) 29.9 MCHC (33.0 - 37.0 G/DL) 32.5 L RDW (11.5 - 14.5 %) 16.9 H Plt Count (130 - 400 /CUMM) 267 MPV (7.4 - 10.4 FL) 9.8 Gran % (42.2 - 75.2 %) 73.6 Lymphocytes % (20.5 - 51.1 %) 16.0 L Monocytes % (1.7 - 9.3 %) 9.7 H Eosinophils % (0 - 5 %) 0.2 Basophils % (0.0 - 2.0 %) 0.5 Absolute Granulocytes (1.4 - 6.5 /CUMM) 10.1 H Absolute Lymphocytes (1.2 - 3.4 /CUMM) 2.2 Lymphocytes (%) 46 Absolute Monocytes (0.10 - 0.60 /CUMM) 1.3 H Absolute Eosinophils (0.0 - 0.7 /CUMM) 0 Absolute Basophils (0.0 - 0.2 /CUMM) 0.1 % Normal PMNs (%) 9 [facility] Hematology Test (%) Other Body Source Fluid WBC (0 - 5 /CUMM) 51 H Fld Total RBCs Counted (0 /CUMM) 160 H Fluid Glucose (mg/dL) 62 07/07 02 0211 2213 Other Body Source Fluid WBC Cancelled Fld Total RBCs Counted Cancelled Urines Urinalysis HEAVY H Urine Color (YEL,AMB,STR) JANE Urine Clarity (CLEAR) HAZY H Urine pH (5.0 - 8.0) 5.5 Ur Specific [place] (1.001 - 1.035) 1.025 Urine Protein (NEG,<30 MG/DL) TRACE H Urine Ketones (NEG) NEG Urine Nitrite (NEG) NEG Urine Bilirubin (NEG) POS@ICTO H Urine Urobilinogen (0.1 - 1.0 EU/dl) 1.0 Ur Leukocyte Esterase (NEG) NEG Ur Microscopic SEDIMENT EXAMINED Urine RBC (0 - 5 /HPF) 25-50 H Urine WBC (0 - 2 /HPF) 3-5 H Ur Epithelial Cells (NONE,FEW) RARE Urine Crystals 3+ CA OX H Urine Bacteria (NEG/NONE) FEW H Hyaline Casts (0/LPF) 1-3 H Urine Mucus (FEW,NONE) FEW Urine Hemoglobin (NEG) LARGE H Urine Glucose (N MG/DL) NEG 07/06 07/06 02 2213 1909 1834 Chemistry Lactic Acid (0.7 - 2.1 mmol/L) 3.8 H Other Body Source Fluid Glucose Cancelled Fluid Total Protein Cancelled Fluid Albumin Cancelled Fluid LDH Cancelled Fluid Amylase Cancelled Urines Urine Color (YEL,AMB,STR) JANE Urine Clarity (CLEAR) HAZY H Urine pH (5.0 - 8.0) 6.0 Ur Specific [place] (1.001 - 1.035) >= 1.030 Urine Protein (NEG,<30 MG/DL) NEG Urine Ketones (NEG) NEG Urine Nitrite (NEG) NEG Urine Bilirubin (NEG) NEG@ICTO Urine Urobilinogen (0.1 - 1.0 EU/dl) 0.2 Ur Leukocyte Esterase (NEG) TRACE H Ur Microscopic SEDIMENT EXAMINED Urine RBC (0 - 5 /HPF) 50-75 H Urine WBC (0 - 2 /HPF) 5-10 H Ur Epithelial Cells (NONE,FEW) RARE Urine Crystals 1+ CA OX H Urine Bacteria (NEG/NONE) RARE H Hyaline Casts (0/LPF) 5-10 H Urine Mucus (FEW,NONE) MOD H Urine Hemoglobin (NEG) MOD H Urine Glucose (N MG/DL) NEG 07/06 1615 Chemistry Sodium (137 - 145 mmol/L) 131 L Potassium (3.5 - 5.1 mmol/L) 4.9 Chloride (98 - 107 mmol/L) 97 L Carbon Dioxide (22 - 30 mmol/L) 24 Anion Gap (5 - 16) 10 BUN (9 - 20 mg/dL) 16 Creatinine (0.7 - 1.2 mg/dL) 0.9 Estimated GFR (>60 ml/min) > 60 BUN/Creatinine Ratio (7 - 25 %) 17.8 Glucose (65 - 99 mg/dL) 84 Lactic Acid (0.7 - 2.1 mmol/L) 4.1 H Calcium (8.4 - 10.2 mg/dL) 11.2 H Total Bilirubin (0.2 - 1.3 mg/dL) 3.9 H AST (17 - 59 U/L) 283 H ALT (21 - 72 U/L) 82 H Alkaline Phosphatase (< 127 U/L) 223 H Ammonia (9 - 30 umol/L) 54 H Troponin I (<0.11 ng/ml) < 0.01 Total Protein (6.3 - 8.2 g/dL) 6.7 Albumin (3.5 - 5.0 g/dL) 2.3 L Globulin (1.9 - 4.2 gm/dL) 4.4 H Albumin/Globulin Ratio (1.1 - 2.2 %) 0.5 L Lipase (23 - 300 U/L) 85 Coagulation PT (9.4 - 12.5 SEC) 16.8 H INR (0.90 - 1.17) 1.61 H APTT (25 - 37 SEC) 50 H Hematology CBC w Diff NO MAN DIFF REQ WBC (4.8 - 10.8 /CUMM) 14.7 H RBC (4.70 - 6.10 /CUMM) 4.57 L Hgb (14.0 - 18.0 G/DL) 13.7 L Hct (42 - 52 %) 43.3 MCV (80.0 - 94.0 FL) 94.7 H MCH (27.0 - 31.0 PG) 30.1 MCHC (33.0 - 37.0 G/DL) 31.7 L RDW (11.5 - 14.5 %) 17.4 H Plt Count (130 - 400 /CUMM) 287 MPV (7.4 - 10.4 FL) 8.9 Gran % (42.2 - 75.2 %) 65.4 Lymphocytes % (20.5 - 51.1 %) 22.7 Monocytes % (1.7 - 9.3 %) 9.3 Eosinophils % (0 - 5 %) 2.4 Basophils % (0.0 - 2.0 %) 0.2 Absolute Granulocytes (1.4 - 6.5 /CUMM) 9.6 H Absolute Lymphocytes (1.2 - 3.4 /CUMM) 3.3 Absolute Monocytes (0.10 - 0.60 /CUMM) 1.4 H Absolute Eosinophils (0.0 - 0.7 /CUMM) 0.4 Absolute Basophils (0.0 - 0.2 /CUMM) 0 Imaging/Other Studies: 07/06/17: EKG- NSR @ 88, nl axis, nl intervals, low voltage, PRWP, NSST without acute change. 07/06/17: XRY-PORTABLE CHEST XRAY- Unremarkable examination. 07/06/17: CT HEAD W/O IV CONTRAST- No acute intracranial pathology. Assessment/Plan Assessment/Recommendations: (*Please refer to previous 05/10/17: inpt GI consultation, by Dr. Marlon Jaeger. * Extensive records reviewed). Unfortunate 41 y/o male, with recently diagnosed unresectable multifocal hepatoma, by imaging studies & by markedly elevated AFP (> 32K), in 04/2017. Furthermore, he is not a candidate for RFA/microwave ablation, base on it's size , as it has replaced a huge amount of liver parenchyma. IR deferred a liver bx for fear of bleeding, but this level of AFP is virtually diagnostic for HCC, in and of itself. The patient was receiving outpatient Sorafenib, per Dr. Sevilla. Technically, he is still a full code, but his prognosis is grave, & apparently, a repeat family meeting for goals of care is pending, per oncology. The patient is cirrhotic with ascites. Previous abdominal taps were negative for SBP, with negative ascitic cytology. 05/17/17: Ascitic fluid- SAAG > 1.6, protein < 2.0 (c/w liver/portal HTN etiology of ascites), 1000 RBC, 200 WBC with 3% PMN = absolute #PMN 6. Apparently, there is no history of EtOH, IVDA, blood transfx, tattoos, needlesticks, etc. Previous hepatitis serologies & HIV- negative, with AMANDA negative and normal ferritin. The patient had a history of obesity & HLD. Most likely, he had REID progressing to cirrhosis, ultimately to HCC. Urine toxicology screens & alcohol levels were negative. The patient was recently admitted to [facility] 05/09/17 to 05/18/17, for altered mental status, elevated LFTs, cirrhosis with MELD-Na 27, back pain, PHYLICIA, hypoglycemia & hypercalcemia, with serum calcium up to 17.8. He was treated with IV saline, Pamidronate, & Calcitonin. He was seen by oncology and endocrine, and his hypercalcemia was felt to be a humeral effect of widespread malignancy. 05/12/17 & 05/15/17: MRI abdomen with hepatoma protocol- abnormal filling defect within the intrahepatic IVC, extending up to the right atrium, highly suspicious for nonocclusive tumor thrombus, with recanalization of the umbilical vein. No significant abdominal varices seen. No dilated ducts. Multiple large confluent suspicious enhancing masses throughout the right and left lobes of the liver. Small amount of ascites. 05/14/17: Bone scan revealed left #7th, 8th, & 9th rib lesions from recent fractures, possibly from bony metastases. His back pain was managed with Lidoderm patch & morphine. He had osteopenia & DJD. The patient apparently lost 80 pounds over the prior 6 months, before his 04/2017 admission, perhaps voluntarily. The patient presented to [facility] 07/06/17 at 4:02 PM, BIBA from home, with altered mental status, which apparently had improved in 04/2017 with correction of his hyperCa2+. Upon arrival, BP 117/66, P 86, R 16, T 97.9, O2 sat RA 95%. He was hemodynamically stable & afebrile. 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 He apparently was lethargic and confused for 2 days. He was jaundiced upon presentation. He was given IV NS & lactulose in the ER. He was cultured in the ER and admitted to General Medicine 07/06/17. He was seen by oncology. *He was transferred to Telemetry 07/07/17, in order to receive Pamidronate. He just had an abdominal tap by the medical housestaff to r/o SBP, prior to my GI consult. *Although the patient was reportedly more alert than yesterday, he was only Ox1 (person), & occasionally oriented to place, not to time- "2000," & so it was extremely difficult to get any further meaningful history from the patient, aside from what the computer records stated. 12/11/09: AMANDA-neg 1:40, ferritin 244.2 05/09/17: Utox- neg. [Tylenol] < 10, [EtOH] < 10, salicylate < 1.0 05/09/17: TSHR 2.63, mono spot- neg. 05/09/17: Hep A Ab, Hep Bs Ag, Hep B core Ab, & HepC Ab- all neg. 05/11/17: nl CEA 1.6 05/11/17: *AFP 32,389 (< 6.1); HIV- neg. 05/11/17: elev PTH 57 (14-27), *SPEP- faint M-spike in gamma globulin region, * IPEP- faint IgG lambda monoclonal band, c/w MGUS. 05/12/17: UPEP- neg. 07/06/17: Admission labs 4:15 p.m.- WBC 14.7 (65% gran/9 gran Ab), H/H 13.7/43.3 , MCV 94.7, RDW 17.4, PLT 287, PT 16.8, INR 1.61, PTT 50, glucose 84, BUN/Cr 16/ 0.9, GFR > 60, Na 131, K 4.9, HCO3 24, AG 10, *lactate 4.1-> 3.8, lipase 85, *Ca 11.2, *albumin 2.3, globulin 4.4, TBil 3.9, alk phos 223, AST 283, ALT 82, *NH3 54, troponin < 0.01. 07/06/17: U/A- hazy, jane, > 1.030, 6.0, 50-75 RBC, 5-10 WBC, 5-10 hyaline casts, 1+ Ca ox, rare bact, rare epith, mod Hgb, neg icto, urobil 0.2, neg prot; neg nitrite, tr esterase. 07/07/17: WBC 13.7 (74% gran/10 gran Ab), H/H 13.1/40.5, MCV 92.2, RDW 16.9, PLT 267, BUN/Cr 15/0.7, GFR > 60, Na 130, K 5.0, HCO3 20, AG 9, Ca 11.2, albumin 2.1 , globulin 4.2, TBil 3.6, DBil 3.0, alk phos 207, AST 271, ALT 84. 07/07/17: *Ascitic tap- 160 RBC, 51 WBC (9 PMN/46 L/45 mono-meso), with absolute # PMN= 4.59 polys; *no SBP) 07/07/17: UC- pending. 07/07/17: BC x 2- pending. 07/07/17: Ascitic gram stain, C&S- pending. 07/06/17: EKG- NSR @ 88, nl axis, nl intervals, low voltage, PRWP, NSST without acute change. 07/06/17: XRY-PORTABLE CHEST XRAY- Unremarkable examination. 07/06/17: CT HEAD W/O IV CONTRAST- No acute intracranial pathology. Apparently, there is no history of EtOH, IVDA, tattoos, needlesticks, etc. Previous hepatitis serologies & HIV- negative, with AMANDA negative and normal ferritin. I was not able to obtain a family history, due to the patient's mental status. The patient had a history of obesity & HLD. Most likely, he had REID progressing to cirrhosis, ultimately to HCC. *The patient's altered mental status is probably due to a combination of PSE, from mildly elevated NH3, in the setting of unresectable multifocal hepatoma (* AFP> 32K), superimposed on hypercalcemia, secondary to underlying malignancy. It is possible that some of the patient's pain medications he was taking could have contributed to his altered mental status. He apparently was not on any sedative hypnotic agents to contribute to his confusion. His electrolytes were relatively stable. There was no hypokalemia, which is a common cause for PSE, as this alters ATP production. Sepsis is a common precipitant of PSE, and should be excluded. He just had 07/07/17: abdominal tap, which was negative for SBP (# 4.59 total PMNs). There were previously no dilated ducts on imaging studies to suggest cholangitis. There was minimal pyuria on U/A. There was no overt UGI bleeding or melena, to account for the PSE, as swallowed blood acts as a protein load to generate NH3 ( stool guaiacs should be checked). Regarding the mental status changes, it would be unusual for hepatoma to give brain metastases, and imaging studies of the head were negative. Unfortunately, the patient's huge multifocal hepatoma is not resectable, nor amenable to RFA. [05/12/17 & 05/15/17: MRI abdomen with hepatoma protocol- abnormal filling defect within the intrahepatic IVC, extending up to the right atrium, highly suspicious for nonocclusive tumor thrombus, with recanalization of the umbilical vein. No significant abdominal varices seen. No dilated ducts. Multiple large confluent suspicious enhancing masses throughout the right and left lobes of the liver. Small amount of ascites ]. The patient was being txd as an outpatient with Sorafenib by oncology. Liver biopsy was never performed by IR, for fear of bleeding, but the markedly elevated AFP > 32K is virtually diagnostic for HCC (perhaps, if this is a fibrolamellar variant of HCC, it might be slightly less aggressive; however the tumor burden is already huge & there may be bone mets). As per my discussion with Dr. Sevilla, the patient was not felt to be a candidate for any additional therapy by [facility]. Dr. Sevilla is planning a family meeting for goals of care, as the patient's prognosis is grave. *SUGGEST- Follow-up numerous cultures. Consider empiric IV Ceftriaxone, until cultures come back. Rifaximin 550 mg po BID. Lactulose 20g po TID. Treatment of hypercalcemia with Pamidronate, as per medical team. Follow-up other electrolytes (watch for hupoNa+, hypoK+; check Mg2+, PO4, etc). Serial NH3 levels. Check stool guaiac. When more alert, if positive gag reflex, start 2g Na+ diet as tolerated, with aspiration precautions. Feed patient with head of bed elevated > 60. DVT prophylaxis with mechanical ALPS (the patient is partially auto A/C). Avoid hepatotoxins. Limit Tylenol to < 2g daily. *No NSAIDS (Naproxen was rxd as inpt). Avoid sedative hypnotics. Judicious use of narcotic analgesics (tx of back pain has to be balanced with mental status issues). Eventual resumption of Sorafenib per oncology, when deemed clinically appropriate. Eventual repeat family meeting, per oncology, to address realistic goals of care, in view of grave prognosis. The above was discussed with the medical house staff, Dr. Fuentes, & Dr. Sevilla. Further inpatient GI follow-up as needed. Problem List: 1. Hepatoma 2. Cirrhosis 3. Hepatic encephalopathy 4. Hypercalcemia 5. Ascites 6. Coagulopathy 7. Hyponatremia Copies To: Gina POLANCO,Selina; Beth POLANCO,Shaw Graham; Roel POLANCO,Asif Polk; Mil POLANCO, Jorge Bates; Antonio POLANCO,Jean Consult Acknowledgment - Thank you for your consult request.
[2017-07-08 06:07] VITALS: BP 120/80
--- NOTE | 2017-07-08 06:58 | PN- Oncology ---
Subjective Subjective: Slightly more alert, denies any new symptomatology 12 point review of systems otherwise unchanged Objective Vital Signs and I&Os Vital Signs Date Time Temp Pulse Resp B/P B/P Pulse O2 O2 Flow FiO2 Mean Ox Delivery Rate 07/08 606 98.5 102 20 120/80 96 07/07 2205 99.3 97 26 104/70 97 07/07 2204 97.3 78 20 116/78 100 / 2203 99.3 97 26 104/70 97 / 1447 98.4 97 20 104/68 97 Room Air Room Air 07/07 1400 97.8 80 20 116/80 97 Room Air 07/07 0900 94 Room Air 07/07 0745 98 118/70 Intake & Output 07/08 0000 07/07 1600 07/07 0807/07 0000 07/06 1600 Intake Total 425 788 902 3164 Output Total 150 450 300 Balance 275 -200 -60 1000 Intake, IV 480 21 1680 Intake, Oral 175 240 240 0 Number 2 2 1 2 Bowel Movements Output, Urine 150 450 300 Patient 198 lb Weight Weight Reported by Patient Measurement Method Gen.: in NAD ENT: Sclera icteric Chest: Normal respiratory effort, decreased breath sounds Cor: RRR, no extra sounds Abdomen: Soft, bowel sounds present, no tenderness, no rebound, ascites Extremities: Without clubbing, cyanosis, or asymmetric edema Neurology: Awake, still appears slightly confused Skin: No rashes Current Medications: Current Medications Sig/[place] Start time Last Medication Dose Route Stop Time Status Admin Ceftriaxone Sodium 1,000 MG DAILY 07/07 2014 AC 07/07 IV 07/08 Enoxaparin Sodium 120 MG BID 07/07 199 07/07 SC 2136 Lactulose 30 GM TID 07/07 0200 AC 07/07 PO 213 Lidocaine 1 PAT DAILY 07/07 1000 AC EXT Naproxen 500 MG BID PRN 07/06 2345 DC PO Ondansetron HCl 4 MG Q6P PRN 07/07 0630 AC 07/07 IV 1824 Pamidronate Disodium 60 MG ONE ONE 07/07 1030 DC 07/07 Sodium Chloride 1,000 ML IV 07/07 182 1453 Rifaximin 550 MG BID 07/07 1009 AC 07/07 PO 2138 Senna/Docusate Sodium 1 TAB BID PRN 07/06 2345 AC PO Sodium Chloride 1,000 MG TID 07/07 1000 AC 07/07 PO 2138 Sorafenib 200 MG 1700 07/07 1700 AC 07/07 PO 1641 Results Last 24 Hours of Lab Results: Laboratory Tests 07/07 07/07 07/07 1600 1600 0758 Chemistry Sodium (137 - 145 mmol/L) 130 L Potassium (3.5 - 5.1 mmol/L) 5.0 Chloride (98 - 107 mmol/L) 100 Carbon Dioxide (22 - 30 mmol/L) 20 L Anion Gap (5 - 16) 9 BUN (9 - 20 mg/dL) 15 Creatinine (0.7 - 1.2 mg/dL) 0.7 Estimated GFR (>60 ml/min) > 60 BUN/Creatinine Ratio (7 - 25 %) 21.4 Calcium (8.4 - 10.2 mg/dL) 11.2 H Total Bilirubin (0.2 - 1.3 mg/dL) 3.6 H Direct Bilirubin (< 0.4 mg/dL) 3.0 H AST (17 - 59 U/L) 271 H ALT (21 - 72 U/L) 84 H Alkaline Phosphatase (< 127 U/L) 207 H Total Protein (6.3 - 8.2 g/dL) 6.3 Albumin (3.5 - 5.0 g/dL) 2.1 L Hematology CBC w Diff NO MAN DIFF REQ WBC (4.8 - 10.8 /CUMM) 13.7 H RBC (4.70 - 6.10 /CUMM) 4.40 L Hgb (14.0 - 18.0 G/DL) 13.1 L Hct (42 - 52 %) 40.5 L MCV (80.0 - 94.0 FL) 92.2 MCH (27.0 - 31.0 PG) 29.9 MCHC (33.0 - 37.0 G/DL) 32.5 L RDW (11.5 - 14.5 %) 16.9 H Plt Count (130 - 400 /CUMM) 267 MPV (7.4 - 10.4 FL) 9.8 Gran % (42.2 - 75.2 %) 73.6 Lymphocytes % (20.5 - 51.1 %) 16.0 L Monocytes % (1.7 - 9.3 %) 9.7 H Eosinophils % (0 - 5 %) 0.2 Basophils % (0.0 - 2.0 %) 0.5 Absolute Granulocytes (1.4 - 6.5 /CUMM) 10.1 H Absolute Lymphocytes (1.2 - 3.4 /CUMM) 2.2 Lymphocytes (%) 46 Absolute Monocytes (0.10 - 0.60 /CUMM) 1.3 H Absolute Eosinophils (0.0 - 0.7 /CUMM) 0 Absolute Basophils (0.0 - 0.2 /CUMM) 0.1 % Normal PMNs (%) 9 Misc Hematology Test (%) Other Body Source Fluid WBC (0 - 5 /CUMM) 51 H Fld Total RBCs Counted (0 /CUMM) 160 H Fluid Glucose (mg/dL) 62 Assessment/Plan Assessment/Recommendations: 1. Change in mental status-patient's hypercalcemia and hepatic encephalopathy being addressed with appropriate medicines, SBP is being ruled out 2. Advanced hepatocellular carcinoma-patient is being treated with Surafenib 3. CODE STATUS-currently patient is not responsive enough to conduct this conversation
--- NOTE | 2017-07-08 07:37 | PN- Housestaff ---
Assessment/Plan Assessment: 41y old gentleman with PMH obesity, hyperlipidemia, and back pain last discharged on 05/18/17 found to have multiple hepatic masses with hepatic failure and ascites and thrombus extending to right atrium presenting for altered mental status most likely due to hepatic encephalopathy Hepatic encephalopathy in the setting of hepatocellular cancer Head CT: No acute intracranial pathology. 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
[2017-07-08 08:01] LABS: ABSOLUTE BASOPHIL COUNT 0.1 /CUMM (0.0-0.2); ABSOLUTE EOSINOPHIL COUNT 0 /CUMM (0.0-0.7); ABSOLUTE GRANULOCYTE CT 10.3 /CUMM (1.4-6.5); ABSOLUTE LYMPH COUNT 2.9 /CUMM (1.2-3.4); ABSOLUTE MONOCYTE COUNT 1.4 /CUMM (0.10-0.60); BASOPHIL % 0.5 % (0.0-2.0); EOSINOPHIL % 0.2 % (0-5); GRANULOCYTE % 70.3 % (42.2-75.2); HEMATOCRIT 41.8 % (42-52); MEAN CORPUSCULAR HGB 30.2 PG (27.0-31.0); MEAN CORPUSCULAR HGB CONC 32.7 G/DL (33.0-37.0); MEAN CORPUSCULAR VOLUME 92.5 FL (80.0-94.0); MEAN PLATELET VOLUME 8.9 FL (7.4-10.4); PLATELET COUNT 280 /CUMM (130-400); RBC DISTRIBUTION WIDTH 17.5 % (11.5-14.5); RED BLOOD CELL CT 4.52 /CUMM (4.70-6.10); WHITE BLOOD CELL COUNT 14.7 /CUMM (4.8-10.8)
--- NOTE | 2017-07-08 11:12 | PN- Housestaff ---
Oziel POLANCO,Luis 07/08/17 1112: Subjective Follow-up For: [facility] encephalopathy Subjective: mental status improved today paracentesis performed yesterday, <1L ascites removed no new complaints Review of Systems Constitutional: Reports: no symptoms. Objective Last 24 Hrs of Vital Signs/I&O Vital Signs Date Time Temp Pulse Resp B/P B/P Pulse O2 O2 Flow FiO2 Mean Ox Delivery Rate 07/08 606 98.5 102 20 120/80 96 07/07 220 99.3 97 26 104/70 97 07/07 2204 97.3 78 20 116/78 100 07/07 2203 99.3 97 26 104/70 97 07/07 1447 98.4 97 20 104/68 97 Room Air Room Air Intake & Output 07/08 1600 07/08 0800 07/08 0000 Intake Total 450 425 Output Total 150 Balance 450 275 Intake, IV 100 250 Intake, Oral 350 175 Number 6 2 2 Bowel Movements Output, Urine 150 Patient 89.811 kg Weight Physical Exam General Appearance: Cooperative, No Acute Distress Cardiovascular: Regular Rate, Normal S1, Normal S2, No Murmurs Lungs: bibasilar crackles Abdomen: Normal Bowel Sounds, Soft, + hepatomegaly, +ascites, abdomen diffusely tender to palpation Extremities: No Clubbing, No Cyanosis, 2+ edema b/l LE Current Medications: Current Medications Sig/[place] Start time Last Medication Dose Route Stop Time Status Admin Albumin Human 25 GM ONCE ONE 07/08 1400 DC IV 07/08 1401 Ceftriaxone Sodium 1,000 MG DAILY 07/07 2014 DC 07/08 IV 07/08 2013 0740 Enoxaparin Sodium 120 MG BID 07/07 0200 07/08 SC 0740 Lactulose 30 GM TID 07/07 0200 07/08 PO 0740 Lidocaine 1 PAT DAILY 07/07 1000 AC EXT Naproxen 500 MG BID PRN 07/06 2345 DC PO Ondansetron HCl 4 MG Q6P PRN 07/07 0630 AC 07/07 IV 1824 Pamidronate Disodium 60 MG ONE ONE 07/07 1030 DC 07/07 Sodium Chloride 1,000 ML IV 07/07 1829 1453 Rifaximin 550 MG BID 07/07 1009 AC 07/08 PO 0740 Senna/Docusate Sodium 1 TAB BID PRN 07/06 2345 AC PO Sodium Chloride 1,000 ML Q10H 07/08 1400 AC 07/08 IV 07/08 2359 1403 Sodium Chloride 1,000 MG TID 07/07 1000 AC 07/08 PO 0740 Sorafenib 200 MG 1700 07/07 1700 AC 07/07 PO 1641 Last 24 Hrs of Lab/Herber Results Last 24 Hrs of Labs/Mics: Laboratory Tests 07/08/17 0735: Anion Gap 9, Estimated GFR > 60, BUN/Creatinine Ratio 20.0, Calcium 11.4 H, Total Bilirubin 3.9 H, Direct Bilirubin 3.3 H, AST 367 H, ALT 96 H, Alkaline Phosphatase 217 H, Ammonia < 9 L, Total Protein 6.6, Albumin 2.2 L, CBC w Diff NO MAN DIFF REQ, RBC 4.52 L, MCV 92.5, MCH 30.2, MCHC 32.7 L, RDW 17.5 H , MPV 8.9, Gran % 70.3, Lymphocytes % 19.6 L, Monocytes % 9.4 H, Eosinophils % 0.2, Basophils % 0.5, Absolute Granulocytes 10.3 H, Absolute Lymphocytes 2.9, Absolute Monocytes 1.4 H, Absolute Eosinophils 0, Absolute Basophils 0.1 07/07/17 1600: Fluid WBC 51 H, Fld Total RBCs Counted 160 H 07/07/17 1600: Lymphocytes 46, % Normal PMNs 9, Misc Hematology Test , Fluid Glucose 62 Microbiology 07/07 1600 BODY FLUID: Body Fluid Culture - RES 07/07 1600 BODY FLUID: Gram Stain - RES Assessment/Plan Assessment: 41y old gentleman with PMH obesity, hyperlipidemia, and back pain last discharged on 05/18/17 found to have multiple hepatic masses with hepatic failure and ascites and thrombus extending to right atrium presenting for altered mental status most likely due to hepatic encephalopathy Hepatic encephalopathy in the setting of hepatocellular cancer Head CT: No acute intracranial pathology. Continue lactulose and rifaximin Ammonia trending down Follow up Dr Sevilla recommendations Consult GI, follow up recommendations Abdominal paracentesis to evaluate for SBP as cause of encephalopathy -f/u ascites cell count and differential, total protein, albumin, culture Gram stain and culture negative Empirically started on ceftriaxone for SBP yesterday, discontinued today Continue sorafenib 200mg daily for HCC Hyponatremia: hypervolemic Na 130 Continue fluid restriction 1000cc daily Continue salt tabs Limits IVFs Holding lasix Hypercalcemia: secondary to malignancy 11.2 s/p 1L NS Start IV pamidronate 60mg with telemetry monitoring Repeat calcium tomorrow, remains elevated 1L NS and 25gram albumin x 1 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 Hepatoma 2. Hyponatremia 3. Hepatic encephalopathy 4. Ascites 5. Liver mass Pain Ratin Pain Location: abdominal Pain Goal: Pain 4 or less Pain Plan: prn Tomorrow's Labs & Rationales: cbc, bep, calcium Selina Fuentes MD 07/08/17 1421: Attending MD Review Statement Attending Statement Attending MD Statement: examined this patient, discuss w/resident/PA/INTERACTIVE DEVELOPER, agreed w/resident/PA/INTERACTIVE DEVELOPER, reviewed EMR data (avail) Attending Assessment/Plan: 41M PMH HTN, HLD, recently diagnosed hepatocellular carcinoma on Sorafenib, IVC thrombus on Lovenox, admitted for metabolic encephalopathy secondary to cirrhosis and hypercalcemia, with ascites on exam. Patient remains confused today but his mental status is improved from yesterday. He is more coherent, though he still becomes confused and tangential. He is A& Ox2. Ascites appreciated on exam. He has two chronic buttock wounds. 1. Metabolic encephalopathy 2. Hepatocellular carcinoma 3. Cirrhosis 4. Hypercalcemia 5. Elevated LFTs 6. Chronic buttock wounds Plan - May transfer back to general medicine - Given Pamidronate on 07/07 - No evidence of SBP on paracentesis done 07/07, cultures NGTD - Follow GI and oncology recommendations - Monitor calcium, renal function, liver function tests - Continue Lactulose and Rifaximin - Continue home medications - DVT PPx
[2017-07-08 14:39] VITALS: BP 116/60
[2017-07-08 22:13] VITALS: BP 116/68
[2017-07-09 05:58] VITALS: BP 120/57
--- NOTE | 2017-07-09 06:52 | PN- Housestaff ---
Oziel POLANCO,Luis 07/09/17 0651: Subjective Follow-up For: Hepatocellular carcinoma Metabolic encephalopathy Subjective: less confused today having frequent BMs on lactulose continues to complain of abdominal pain afebrile Review of Systems Constitutional: Reports: see HPI. Objective Last 24 Hrs of Vital Signs/I&O Vital Signs Date Time Temp Pulse Resp B/P B/P Pulse O2 O2 Flow FiO2 Mean Ox Delivery Rate 07/09 0558 98.2 78 20 120/57 95 07/08 2213 98.5 90 20 116/68 95 07/08 1439 98.4 84 20 116/60 99 Room Air Intake & Output 07/09 1600 07/09 0800 07/09 0000 Intake Total 150 520 Output Total Balance 150 520 Intake, IV 400 Intake, Oral 150 120 Number 2 1 Bowel Movements Physical Exam General Appearance: Alert, Cooperative, No Acute Distress, laying supine Cardiovascular: Regular Rate, Normal S1, Normal S2, No Murmurs Lungs: bibasilar crackles Abdomen: Normal Bowel Sounds, Soft, +hepatomegaly, distended but soft, diffusely tender Extremities: No Clubbing, No Cyanosis, Normal Pulses, bilateral 3+ lower extremity edema Current Medications: Current Medications Sig/[place] Start time Last Medication Dose Route Stop Time Status Admin Albumin Human 25 GM ONCE ONE 07/08 1400 DC 07/08 IV 07/08 1401 1647 Ceftriaxone Sodium 1,000 MG DAILY 07/07 2014 DC 07/08 IV 07/08 2013 0740 Enoxaparin Sodium 120 MG BID 07/07 0200 07/09 SC 0749 Lactulose 30 GM TID 07/07 0200 AC 07/09 PO 0749 Lidocaine 1 PAT DAILY 07/07 1000 AC EXT Ondansetron HCl 4 MG .STK-MED ONE 07/08 1633 DC IM 07/08 1634 Ondansetron HCl 4 MG Q6P PRN 07/07 0630 AC 07/08 IV 1636 Rifaximin 550 MG BID 07/07 1009 AC 07/09 PO 0749 Senna/Docusate Sodium 1 TAB BID PRN 07/06 2345 AC PO Sodium Chloride 1,000 ML Q10H 07/08 1400 DC 02 IV 07/08 2359 1403 Sodium Chloride 1,000 MG TID 07/07 1000 AC 07/09 PO 0750 Sorafenib 200 MG 1700 07/07 1700 AC 07/08 PO 1642 Last 24 Hrs of Lab/Herber Results Last 24 Hrs of Labs/Mics: Laboratory Tests 07/09/17 1025: Anion Gap 8, Estimated GFR > 60, BUN/Creatinine Ratio 21.4, Calcium 11.2 H, CBC w Diff NO MAN DIFF REQ, RBC 4.17 L, MCV 92.7, MCH 29.9, MCHC 32.3 L, RDW 17.1 H, MPV 8.6, Gran % 71.0, Lymphocytes % 20.0 L, Monocytes % 8.2, Eosinophils % 0.4, Basophils % 0.4, Absolute Granulocytes 9.1 H, Absolute Lymphocytes 2.6, Absolute Monocytes 1.0 H, Absolute Eosinophils 0.1, Absolute Basophils 0.1 Assessment/Plan Assessment: 41y old gentleman with PMH obesity, hyperlipidemia, and back pain last discharged on 05/18/17 found to have multiple hepatic masses with hepatic failure and ascites and thrombus extending to right atrium presenting for altered mental status most likely due to hepatic encephalopathy Hepatic encephalopathy in the setting of hepatocellular cancer Head CT negative Continue lactulose and rifaximin Oncology consultations, appreciate recommendations Consult GI, appreciate recommendations Abdominal paracentesis to evaluate for SBP as cause of encephalopathy -f/u ascites cell count and differential, total protein, albumin, culture Gram stain and culture negative for SBP Hepatocellular carcinoma Continue sorafenib 200mg daily for HCC Hyponatremia: hypervolemic improving Continue fluid restriction 1000cc daily Continue salt tabs Limits IVFs Holding lasix Hypercalcemia: secondary to malignancy s/p 1L NS On telemetry for monitoring during IV pamidronate 60mg treatment Repeat calcium tomorrow, remains elevated 1L NS and 25gram albumin x 1 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 Hepatic encephalopathy 2. Ascites 3. Liver mass 4. Hepatoma 5. Hyponatremia 6. Hypercalcemia Pain Ratin Pain Location: abdominal Pain Goal: Pain 4 or less Pain Plan: prn Tomorrow's Labs & Rationales: cbc, bep, calcium, lfts Selina Fuentes MD 07/09/17 1302: Attending MD Review Statement Attending Statement Attending MD Statement: examined this patient, discuss w/resident/PA/MATTRESS RENOVATOR, agreed w/resident/PA/MATTRESS RENOVATOR, reviewed EMR data (avail) Attending Assessment/Plan: 41M PMH HTN, HLD, recently diagnosed hepatocellular carcinoma on Sorafenib, IVC thrombus on Lovenox, admitted for metabolic encephalopathy secondary to cirrhosis and hypercalcemia, with ascites on exam. Patient is still confused. He is A&Ox2. Ascites appreciated on exam. He has two chronic buttock wounds. No clinical improvement is noted. 1. Metabolic encephalopathy 2. Hepatocellular carcinoma 3. Cirrhosis 4. Hypercalcemia 5. Elevated LFTs 6. Chronic buttock wounds Plan - May transfer back to general medicine - Given Pamidronate on 07/07 - No evidence of SBP on paracentesis done 07/07, cultures NGTD - Follow GI and oncology recommendations - Monitor calcium, renal function, liver function tests - Continue Lactulose and Rifaximin - Continue home medications - DVT PPx - Goals of care discussion with Dr. Sevilla. Patient is currently full code.
--- NOTE | 2017-07-09 07:18 | PN- Oncology ---
See Addendum Subjective Subjective: Awake, no specific complaints, slightly confused 12 point review of systems unchanged Objective Vital Signs and I&Os Vital Signs Date Time Temp Pulse Resp B/P B/P Pulse O2 O2 Flow FiO2 Mean Ox Delivery Rate 07/09 0558 98.2 78 20 120/57 95 07/08 2213 98.5 90 20 116/68 95 07/08 1439 98.4 84 20 116/60 99 Room Air Intake & Output 07/09 0807/09 0000 07/08 1600 07/08 0807/08 0000 07/07 1600 Intake Total 150 520 450 425 250 Output Total 150 450 Balance 150 520 450 275 -200 Intake, IV 400 100 250 10 Intake, Oral 150 120 350 175 240 Number 2 1 6 2 2 1 Bowel Movements Output, Urine 150 450 Patient 198 lb Weight Gen.: in NAD ENT: Sclera icteric Chest: Normal respiratory effort, decreased breath sounds Cor: RRR, no extra sounds Abdomen: Soft, bowel sounds present, no tenderness, no rebound Extremities: Without clubbing, cyanosis, or asymmetric edema Neurology: Awake, no gross deficit Skin: No rashes Current Medications: Current Medications Sig/[place] Start time Last Medication Dose Route Stop Time Status Admin Albumin Human 25 GM ONCE ONE 07/08 1400 DC 07/08 IV 07/08 1401 1647 Ceftriaxone Sodium 1,000 MG DAILY 07/07 2014 DC 07/08 IV 07/0840 Enoxaparin Sodium 120 MG BID 07/07 020 07/08 SC 2049 Lactulose 30 GM TID 07/07 0200 AC 07/08 PO 2049 Lidocaine 1 PAT DAILY 07/07 1000 AC EXT Ondansetron HCl 4 MG .STK-MED ONE 07/08 1633 DC IM 07/08 1634 Ondansetron HCl 4 MG Q6P PRN 07/07 0630 AC 07/08 IV 1636 Rifaximin 550 MG BID 07/07 1009 AC 07/08 PO 205 Senna/Docusate Sodium 1 TAB BID PRN 07/06 2345 AC PO Sodium Chloride 1,000 ML Q10H 07/08 1400 DC 0208 IV 07/08 2359 1403 Sodium Chloride 1,000 MG TID 07/07 1000 AC 07/08 PO 2050 Sorafenib 200 MG 1700 07/07 1700 AC 07/08 PO 1642 Results Last 24 Hours of Lab Results: Laboratory Tests 07/08 0735 Chemistry Sodium (137 - 145 mmol/L) 133 L Potassium (3.5 - 5.1 mmol/L) 4.5 Chloride (98 - 107 mmol/L) 101 Carbon Dioxide (22 - 30 mmol/L) 23 Anion Gap (5 - 16) 9 BUN (9 - 20 mg/dL) 16 Creatinine (0.7 - 1.2 mg/dL) 0.8 Estimated GFR (>60 ml/min) > 60 BUN/Creatinine Ratio (7 - 25 %) 20.0 Calcium (8.4 - 10.2 mg/dL) 11.4 H Total Bilirubin (0.2 - 1.3 mg/dL) 3.9 H Direct Bilirubin (< 0.4 mg/dL) 3.3 H AST (17 - 59 U/L) 367 H ALT (21 - 72 U/L) 96 H Alkaline Phosphatase (< 127 U/L) 217 H Ammonia (9 - 30 umol/L) < 9 L Total Protein (6.3 - 8.2 g/dL) 6.6 Albumin (3.5 - 5.0 g/dL) 2.2 L Hematology CBC w Diff NO MAN DIFF REQ WBC (4.8 - 10.8 /CUMM) 14.7 H RBC (4.70 - 6.10 /CUMM) 4.52 L Hgb (14.0 - 18.0 G/DL) 13.6 L Hct (42 - 52 %) 41.8 L MCV (80.0 - 94.0 FL) 92.5 MCH (27.0 - 31.0 PG) 30.2 MCHC (33.0 - 37.0 G/DL) 32.7 L RDW (11.5 - 14.5 %) 17.5 H Plt Count (130 - 400 /CUMM) 280 MPV (7.4 - 10.4 FL) 8.9 Gran % (42.2 - 75.2 %) 70.3 Lymphocytes % (20.5 - 51.1 %) 19.6 L Monocytes % (1.7 - 9.3 %) 9.4 H Eosinophils % (0 - 5 %) 0.2 Basophils % (0.0 - 2.0 %) 0.5 Absolute Granulocytes (1.4 - 6.5 /CUMM) 10.3 H Absolute Lymphocytes (1.2 - 3.4 /CUMM) 2.9 Absolute Monocytes (0.10 - 0.60 /CUMM) 1.4 H Absolute Eosinophils (0.0 - 0.7 /CUMM) 0 Absolute Basophils (0.0 - 0.2 /CUMM) 0.1 Cultures-negative thus far Assessment/Plan Assessment/Recommendations: 1. confusion-ammonia improved, calcium remains elevated,s/p pamidronate Recommend-continue careful hydration, follow appropriate laboratory, no evidence for SBP 2. Hepatocellular carcinoma-continue sorafenib 3. Overall status-very poor prognosis, family has been made aware of this day 1 , hopefully can speak with family today
[2017-07-09 11:02] LABS: ABSOLUTE BASOPHIL COUNT 0.1 /CUMM (0.0-0.2); ABSOLUTE EOSINOPHIL COUNT 0.1 /CUMM (0.0-0.7); ABSOLUTE GRANULOCYTE CT 9.1 /CUMM (1.4-6.5); ABSOLUTE LYMPH COUNT 2.6 /CUMM (1.2-3.4); BASOPHIL % 0.4 % (0.0-2.0); EOSINOPHIL % 0.4 % (0-5); HEMATOCRIT 38.6 % (42-52); MEAN CORPUSCULAR HGB 29.9 PG (27.0-31.0); MEAN CORPUSCULAR HGB CONC 32.3 G/DL (33.0-37.0); MEAN CORPUSCULAR VOLUME 92.7 FL (80.0-94.0); MEAN PLATELET VOLUME 8.6 FL (7.4-10.4); PLATELET COUNT 232 /CUMM (130-400); RBC DISTRIBUTION WIDTH 17.1 % (11.5-14.5); RED BLOOD CELL CT 4.17 /CUMM (4.70-6.10); WHITE BLOOD CELL COUNT 12.8 /CUMM (4.8-10.8)
[2017-07-09 14:35] VITALS: BP 116/78
[2017-07-09 22:30] VITALS: BP 120/70
[2017-07-10 06:35] VITALS: BP 118/72
--- NOTE | 2017-07-10 12:22 | PN- Att Addend ---
Attending Addendum Attending Brief Note 41M PMH HTN, HLD, recently diagnosed hepatocellular carcinoma on Sorafenib, IVC thrombus on Lovenox, admitted for metabolic encephalopathy secondary to cirrhosis and hypercalcemia, with ascites on exam. Patient is still confused. He is A&Ox2. Ascites appreciated on exam. He has two chronic buttock wounds. No clinical improvement is noted. ROS unable to answer AFVSS NAD, lethargic NCAT MMM Supple RRR CTAB Soft, distended No c/c/e Pulses intact A&Ox1 Current Medications Sig/[place] Start time Last Medication Dose Route Stop Time Status Admin Enoxaparin Sodium 120 MG BID 07/07 0200 AC 07/10 SC 0840 Hydromorphone HCl 1 MG Q6-PRN PRN 07/09 1500 AC 07/10 PO 0251 Lactulose 30 GM TID 07/07 0200 AC 07/09 PO 2053 Lidocaine 1 PAT DAILY 07/07 1000 AC EXT Ondansetron HCl 4 MG .STK-MED ONE 07/09 1420 DC IM 07/09 1421 Ondansetron HCl 4 MG Q6P PRN 07/07 0630 AC 07/09 IV 1423 Rifaximin 550 MG BID 07/07 1009 AC 07/10 PO 0837 Senna/Docusate Sodium 1 TAB BID PRN 07/06 2345 AC PO Sodium Chloride 1,000 MG TID 07/07 1000 AC 07/10 PO 0837 Sorafenib 200 MG 1700 07/07 1700 AC 07/09 PO 1654 Laboratory Tests 07/10 0735 Chemistry Sodium (137 - 145 mmol/L) 134 L Potassium (3.5 - 5.1 mmol/L) 4.1 Chloride (98 - 107 mmol/L) 104 Carbon Dioxide (22 - 30 mmol/L) 22 Anion Gap (5 - 16) 8 BUN (9 - 20 mg/dL) 15 Creatinine (0.7 - 1.2 mg/dL) 0.7 Estimated GFR (>60 ml/min) > 60 BUN/Creatinine Ratio (7 - 25 %) 21.4 Calcium (8.4 - 10.2 mg/dL) 10.7 H Vital Signs Date Time Temp Pulse Resp B/P B/P Pulse O2 O2 Flow FiO2 Mean Ox Delivery Rate 07/10 0800 Room Air 07/10 0635 97.5 90 18 118/72 93 Room Air 07/09 2230 97.7 90 18 120/70 93 Room Air 07/09 1435 97.8 84 20 116/78 95 Room Air Intake & Output 07/10 1600 07/10 0800 07/10 0000 Intake Total 310 160 Output Total 370 Balance 310 -210 Intake, IV 10 Intake, Oral 300 160 Number 1 5 Bowel Movements Output, Urine 370 1. Metabolic encephalopathy 2. Hepatocellular carcinoma 3. Cirrhosis 4. Hypercalcemia 5. Elevated LFTs 6. Chronic buttock wounds Plan - May transfer back to general medicine - Given Pamidronate on 07/07 - No evidence of SBP on paracentesis done 07/07, cultures NGTD - Follow GI and oncology recommendations - Monitor calcium, renal function, liver function tests - Continue Lactulose and Rifaximin - Continue home medications - DVT PPx - Goals of care discussion with Dr. Sevilla. Patient is currently full code.
[2017-07-10 14:43] VITALS: BP 110/70
[2017-07-10 22:40] VITALS: BP 110/68
[2017-07-11 06:40] VITALS: BP 104/70; BP 104/701
--- NOTE | 2017-07-11 09:05 | PN- Housestaff ---
See Addendum Subjective Follow-up For: Hepatocellular carcinoma Metabolic encephalopathy Subjective: less confused today having frequent BMs on lactulose continues to complain of abdominal pain improved PO intake especially with chocolate ensure afebrile Review of Systems Constitutional: Reports: see HPI. Objective Last 24 Hrs of Vital Signs/I&O Vital Signs Date Time Temp Pulse Resp B/P B/P Pulse O2 O2 Flow FiO2 Mean Ox Delivery Rate 07/11 0640 97.8 86 18 104/70 94 Room Air 07/10 2240 97.5 81 20 110/68 93 Room Air 07/10 1443 98.5 82 18 110/70 95 Intake & Output 07/11 1600 07/11 0800 07/11 0000 Intake Total 200 300 Output Total 350 Balance 200 -50 Intake, Oral 200 300 Number 1 Bowel Movements Output, Urine 350 Physical Exam General Appearance: Alert, Cooperative, No Acute Distress Cardiovascular: Regular Rate, Normal S1, Normal S2, No Murmurs Lungs: Clear to Auscultation, Normal Air Movement Abdomen: Soft, distended and more firm, leaking ascites LLQ from previous paracentesis, hepatomegaly Extremities: No Clubbing, No Cyanosis, lower extremity edema Current Medications: Current Medications Sig/[place] Start time Last Medication Dose Route Stop Time Status Admin Enoxaparin Sodium 120 MG BID 07/07 0200 AC 07/11 SC 1108 Hydromorphone HCl 1 MG Q6-PRN PRN 07/09 1500 AC 07/11 PO 1107 Lactulose 30 GM TID 07/07 0200 AC 07/11 PO 1108 Lidocaine 1 PAT DAILY 07/07 1000 AC 07/11 EXT 1108 Ondansetron HCl 4 MG Q6P PRN 07/07 0630 AC 07/09 IV 1423 Rifaximin 550 MG BID 07/07 1009 AC 07/11 PO 1108 Senna/Docusate Sodium 1 TAB BID PRN 07/06 2345 AC PO Sodium Chloride 1,000 MG TID 07/07 1000 AC 07/11 PO 1108 Sorafenib 200 MG 1700 07/07 1700 AC 07/10 PO 1518 Last 24 Hrs of Lab/Herber Results Last 24 Hrs of Labs/Mics: Laboratory Tests 07/11/17 0735: Anion Gap 6, Estimated GFR > 60, BUN/Creatinine Ratio 22.9, Calcium 10.7 H, Total Bilirubin 3.7 H, Direct Bilirubin 2.9 H, AST 292 H, ALT 83 H, Alkaline Phosphatase 197 H, Total Protein 6.3, Albumin 2.1 L Assessment/Plan Assessment: 41y old gentleman with PMH obesity, hyperlipidemia, and back pain last discharged on 05/18/17 found to have multiple hepatic masses with hepatic failure and ascites and thrombus extending to right atrium presenting for altered mental status most likely due to hepatic encephalopathy Hepatic encephalopathy in the setting of hepatocellular cancer Head CT negative Continue lactulose and rifaximin Oncology consultations, appreciate recommendations Consult GI, appreciate recommendations Abdominal paracentesis to evaluate for SBP as cause of encephalopathy -f/u ascites cell count and differential, total protein, albumin, culture Gram stain and culture negative for SBP Hepatocellular carcinoma Continue sorafenib 200mg daily for HCC Hyponatremia: hypervolemic improving Continue fluid restriction 1000cc daily Continue salt tabs Limits IVFs Holding lasix Hypercalcemia: secondary to malignancy s/p 1L NS On telemetry for monitoring during IV pamidronate 60mg treatment Repeat calcium tomorrow, remains elevated 1L NS and 25gram albumin x 1 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 Cirrhosis 2. Hepatic encephalopathy 3. Hyponatremia 4. Hepatoma 5. Abdominal mass 6. Liver mass Pain Ratin Pain Location: n/a Pain Goal: Pain 4 or less Pain Plan: prn Tomorrow's Labs & Rationales: none
[2017-07-11 15:27] VITALS: BP 114/68
[2017-07-11 22:47] VITALS: BP 102/74
--- NOTE | 2017-07-12 07:12 | PN- Oncology ---
Subjective Subjective: Awake, lethargic but responding to questions 12 point review of systems nonspecific Objective Vital Signs and I&Os Vital Signs Date Time Temp Pulse Resp B/P B/P Pulse O2 O2 Flow FiO2 Mean Ox Delivery Rate 07/11 2247 98.5 90 20 102/74 93 Room Air 07/11 1527 97.5 89 20 114/68 92 Intake & Output 07/12 0800 07/12 0000 07/11 1600 07/11 0800 07/11 0000 07/10 1600 Intake Total 120 460 550 200 300 610 Output Total 200 200 350 Balance 120 260 350 200 -50 610 Intake, IV 10 10 Intake, Oral 120 450 550 200 300 600 Number 1 7 1 1 Bowel Movements Output, Urine 200 200 350 Gen.: in NAD ENT: Sclera icteric Chest: Normal respiratory effort, decreased breath sounds Cor: RRR, no extra sounds Abdomen: Soft, bowel sounds present, no tenderness, ascites present Extremities: Without clubbing, cyanosis, or asymmetric edema Neurology: Awake, no gross deficit Skin: No rashes Current Medications: Current Medications Sig/[place] Start time Last Medication Dose Route Stop Time Status Admin Enoxaparin Sodium 120 MG BID 07/07 0200 AC 07/11 SC 2110 Hydromorphone HCl 1 MG Q6-PRN PRN 07/09 1500 AC 07/12 PO 0244 Lactulose 30 GM TID 07/07 0200 AC 07/11 PO 1615 Lidocaine 1 PAT DAILY 07/07 1000 AC 07/11 EXT 1108 Ondansetron HCl 4 MG Q6P PRN 07/07 0630 AC 07/12 IV 0244 Rifaximin 550 MG BID 07/07 1009 AC 07/11 PO 211 Senna/Docusate Sodium 1 TAB BID PRN 07/06 2345 AC PO Sodium Chloride 1,000 MG TID 07/07 1000 AC 07/11 PO 2111 Sorafenib 200 MG 1700 07/07 1700 AC 07/11 PO 1638 Results Last 24 Hours of Lab Results: Laboratory Tests 07/11 0735 Chemistry Sodium (137 - 145 mmol/L) 133 L Potassium (3.5 - 5.1 mmol/L) 4.6 Chloride (98 - 107 mmol/L) 101 Carbon Dioxide (22 - 30 mmol/L) 26 Anion Gap (5 - 16) 6 BUN (9 - 20 mg/dL) 16 Creatinine (0.7 - 1.2 mg/dL) 0.7 Estimated GFR (>60 ml/min) > 60 BUN/Creatinine Ratio (7 - 25 %) 22.9 Calcium (8.4 - 10.2 mg/dL) 10.7 H Total Bilirubin (0.2 - 1.3 mg/dL) 3.7 H Direct Bilirubin (< 0.4 mg/dL) 2.9 H AST (17 - 59 U/L) 292 H ALT (21 - 72 U/L) 83 H Alkaline Phosphatase (< 127 U/L) 197 H Total Protein (6.3 - 8.2 g/dL) 6.3 Albumin (3.5 - 5.0 g/dL) 2.1 L Assessment/Plan Assessment/Recommendations: 1. Metabolic-calcium improved, ammonia normal, cultures negative 2. Advanced hepatocellular carcinoma-bilirubin remains less than 4 Overall-poor performance status and poor prognosis
[2017-07-12 07:26] VITALS: BP 100/70
[2017-07-12 07:27] VITALS: BP 132/80
[2017-07-12 07:32] VITALS: BP 100/70
--- NOTE | 2017-07-12 08:51 | PN- Housestaff ---
Oziel POLANCO,Luis 07/12/17 0851: Subjective Follow-up For: Hepatocellular carcinoma Metabolic encephalopathy Subjective: confusion seems to be improved OOB with PT persistent abdominal pain, ascites leaking from prior LLQ paracentesis site improved PO intake especially with chocolate ensure afebrile Review of Systems Constitutional: Reports: see HPI. Objective Last 24 Hrs of Vital Signs/I&O Vital Signs Date Time Temp Pulse Resp B/P B/P Pulse O2 O2 Flow FiO2 Mean Ox Delivery Rate 07/12 0932 Room Air 3.0L 07/12 0923 Room Air 3.0L 07/12 0732 98.4 93 20 100/70 92 Room Air 07/12 0727 98.0 61 24 132/80 98 Nasal 3.0L Cannula 07/12 0726 98.4 93 20 100/70 92 Room Air 07/11 2247 98.5 90 20 102/74 93 Room Air 07/11 1527 97.5 89 20 114/68 92 Intake & Output 07/12 1600 07/12 0800 07/12 0000 Intake Total 120 460 Output Total 200 Balance 120 260 Intake, IV 10 Intake, Oral 120 450 Number 1 1 7 Bowel Movements Output, Urine 200 Physical Exam General Appearance: Alert, Cooperative, No Acute Distress Cardiovascular: Regular Rate, Normal S1, Normal S2, No Murmurs Lungs: diminished bibasilar Abdomen: soft but distended, diffuse mild tenderness to palpation, hepatomegaly, LLQ abd dressing moist from ascites Extremities: No Clubbing, No Cyanosis, mild LE edema Current Medications: Current Medications Sig/[place] Start time Last Medication Dose Route Stop Time Status Admin Enoxaparin Sodium 120 MG BID 07/07 0200 AC 07/11 SC 2110 Hydromorphone HCl 1 MG Q6-PRN PRN 07/09 1500 AC 07/12 PO 0244 Lactulose 30 GM TID 07/07 0200 AC 07/11 PO 1615 Lidocaine 1 PAT DAILY 07/07 1000 AC 07/11 EXT 1108 Ondansetron HCl 4 MG .STK-MED ONE 07/12 0229 DC IM 07/12 0230 Ondansetron HCl 4 MG Q6P PRN 07/07 0630 AC 07/12 IV 0244 Rifaximin 550 MG BID 07/07 1009 AC 07/12 PO 1101 Senna/Docusate Sodium 1 TAB BID PRN 07/06 2345 AC PO Sodium Chloride 1,000 MG TID 07/07 1000 AC 07/12 PO 1101 Sorafenib 200 MG 1700 07/07 1700 AC 07/11 PO 1638 Last 24 Hrs of Lab/Herber Results Last 24 Hrs of Labs/Mics: Laboratory Tests 07/12/17 1150: Fluid WBC Pending, Fld Total RBCs Counted Pending Microbiology 07/12 1150 BODY FLUID: Body Fluid Culture - RECD 07/12 1150 BODY FLUID: Gram Stain - RECD Assessment/Plan Assessment: 41y old gentleman with PMH obesity, hyperlipidemia, and back pain last discharged on 05/18/17 found to have multiple hepatic masses with hepatic failure and ascites and thrombus extending to right atrium presenting for altered mental status most likely due to hepatic encephalopathy Hepatic encephalopathy in the setting of hepatocellular cancer Continue lactulose and rifaximin Oncology consultations, appreciate recommendations GI consultation, appreciate recommendations Repeat abdominal paracentesis therapeutic by IR today -f/u ascites cell count and differential, total protein, albumin, culture Gram stain and culture negative for SBP Hepatocellular carcinoma Continue sorafenib 200mg daily for HCC Hyponatremia: hypervolemic stable Continue fluid restriction 1000cc daily Continue salt tabs Holding lasix Hypercalcemia: secondary to malignancy s/p IV pamidronate 60mg treatment 07/07/17 Improved with IV bisphosphanate therapy from 11.4 -> 10.7 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 Hepatic encephalopathy 2. Hyponatremia 3. Ascites 4. Liver mass 5. Hepatoma Pain Ratin Pain Location: abdominal Pain Goal: Pain 4 or less Pain Plan: prn Tomorrow's Labs & Rationales: lfts, bep Selina Fuentes MD 07/12/17 1215: Attending MD Review Statement Attending Statement Attending MD Statement: examined this patient, discuss w/resident/PA/GLOBAL SALES DIRECTOR, agreed w/resident/PA/GLOBAL SALES DIRECTOR, reviewed EMR data (avail) Attending Assessment/Plan: 41M PMH HTN, HLD, recently diagnosed hepatocellular carcinoma on Sorafenib, IVC thrombus on Lovenox, admitted for metabolic encephalopathy secondary to cirrhosis and hypercalcemia, with ascites on exam. Patient is still confused. Calcium slowly improving, LFTs improved. Ascites appreciated on exam. He has two chronic buttock wounds. More alert today. 1. Metabolic encephalopathy 2. Hepatocellular carcinoma 3. Cirrhosis 4. Hypercalcemia 5. Elevated LFTs 6. Chronic buttock wounds Plan - Continue on general medicine - IR consult for large volume paracentesis - Given Pamidronate on 07/07 - No evidence of SBP on paracentesis done 07/07, cultures NGTD - Follow GI and oncology recommendations - Monitor calcium, renal function, liver function tests - Continue Lactulose and Rifaximin - Continue home medications - DVT PPx - Goals of care discussion with Dr. Sevilla. DNR/DNI made today.
--- NOTE | 2017-07-12 10:17 | Discharge Summary ---
Visit Information Visit Dates Admission Date: 07/06/17 Discharge Date: 07/15/17 Hospital Course Course Attending Physician: Selina Fuentes MD Primary Care Physician: Shaw Campos MD Hospital Course: 41y old male with PMH obesity, hyperlipidemia, and back pain found to have multiple hepatic masses with hepatic failure, ascites and thrombus extending to right atrium. The patient presenting for AMS which most likely multifactorial due to hepatic encephalopathy and hypercalcemia in the setting of hepatocellular cancer. Patient was managed with lactulose and rifaximin. He had a therapeutic and diagnostic paracentesis done during this admission, spontaneous bacterial peritonitis was excluded, gram stain and culture were negative. For hepatocellular carcinoma we continued sorafenib 200mg daily. The patient will be instructed to take lactulose BID PRN for encephalopathy, if needed. During this admission patient had a new rib fracture on chest x-ray, it's uncertain if this is a pathological fracture. Patient will be discharged on lidoderm and dilaudid for pain control. patient had hyponatremia which is stable, on discharge, we'll place patient on fluid restriction of 1200 ml daily and we will continue salt tablets. The patient had hypercalcemia secondary to malignancy, it was treated with IV bisphosphanate therapy. No bisphosphanate on discharge for Intrahepatic IVC thrombus extending to the right atrium we will continue Lovenox 120mg BID on discharge Allergies: Coded Allergies: NSAIDS (Non-Steroidal Anti-Inflamma (PER PT CANT TAKE DUE TO LIVER 05/27/17) codeine (PER PT VERY RAPID HEART RATE 05/27/17) Disposition Summary Disposition Principal Diagnosis: Hepatic encephalopathy Additional Diagnosis: Liver cancer Discharge Disposition: SNF Discharge Instructions General Discharge Information Code Status: Do Not Resucitate/Intubat Patient's Diet: Regular diet Patient's Activity: As tolerated Follow-Up Instructions/Appts: See CMR Medications at Discharge Discharge Medications: Stop taking the following medications: Cyclobenzaprine HCl (Cyclobenzaprine HCl) 10 MG TABLET ORAL THREE TIMES DAILY as needed for MUSCLE SPASM Qty = 60 Naproxen (Naprosyn) 500 MG TABLET ORAL TWICE DAILY as needed for back pain Qty = 60 Furosemide (Furosemide) 20 MG TABLET ORAL DAILY as needed for edema Qty = 30 Continue taking these medications: Montelukast Sodium (Montelukast Sodium) 10 MG TABLET 1 Tablet ORAL DAILY Qty = 30 Comments: DID NOT RECIEVE IN HOSPITAL Sennosides/Docusate Sodium (Senna Plus Tablet) 8.6 MG-50 MG TABLET 1 Tablet ORAL TWICE DAILY as needed for CONSTIPATION Qty = 30 Instructions: . Comments: NOT GIVEN IN HOSPITAL Sodium Chloride (Deep Sea) 0.65 % SPRAY 2 [place] In the nose EVERY 4 HOURS NEEDED as needed for CONGESTION Qty = 2 Instructions: . Comments: DID NOT RECIEVE Enoxaparin Sodium (Lovenox) 120 MG/0.8 ML SYRINGE 1 Inj Inject into fatty tissue TWICE DAILY Qty = 60 Instructions: . Comments: Last Taken: 07/15/17 Time: 10 AM Magnesium Oxide (Magnesium) 400 MG CAPSULE 1 Capsule ORAL DAILY Comments: NOT GIVEN IN HOSPITAL Sodium Chloride (Sodium Chloride) 1 GRAM TABLET 1 Tablet ORAL THREE TIMES DAILY Comments: Last Taken: 07/15/17 Time: 10:00 AM Sorafenib Tosylate (Nexavar) 200 MG TABLET 1 Tablet ORAL DAILY Qty = 90 Comments: Last Taken: 07/14/17 Time: 5:00 PM Start taking the following new medications: Hydromorphone HCl (Dilaudid) 2 MG TABLET 0.5 Tablet ORAL EVERY 4 HOURS NEEDED as needed for PAIN 4-6 Qty = 60 No Refills Comments: Last Taken: GIVEN 1MG PO DILAUDID LAST 07/14/17 9:00 PM Time: Hydromorphone HCl (Dilaudid) 2 MG TABLET 1 Tablet ORAL EVERY 4-6 HOURS NEEDED as needed for PAIN 7-10 Qty = 60 No Refills Lactulose (Lactulose) 10 GRAM/15 ML SOLUTION 30 Milliliters ORAL TWICE DAILY as needed for ENCEPHALOPATHY Qty = 1800 No Refills Instructions: TITRATE TO 2-3 BM'S PER DAY The following medications have been changed: Old: Lidocaine (Lidocaine) 5 % ADH..PATCH 1 Patch On the skin DAILY Qty = 30 New: Lidocaine (Lidocaine) 5 % ADH..PATCH 1 Patch On the skin DAILY Qty = 30 Instructions: WEAR 1-2 PATCHES UP TO 12 HOURS A DAY. Comments: LAST GIVEN 07/15/17 5:00 AM Copies To: Victorina POLANCO,Asif Maldonado; Beth POLANCO,Shaw Graham; Roel POLANCO,Asif Polk
[2017-07-12 14:25] VITALS: BP 110/70
--- NOTE | 2017-07-12 16:05 | ULTRASOUND REPORT ---
EXAMINATION: PARACENTESIS CLINICAL INFORMATION: Ascites COMPARISON: Several prior paracenteses, the most recent 06/28/2017 TECHNIQUE: Indirect ultrasound guidance using a 6 [place]onian Jlxp-J-Hkoxqduj closed needle/catheter system FINDINGS: Informed consent was obtained from the patient prior to the procedure. During this process, the procedure alternatives were explained, along with the intended outcome and benefits. The risks of the procedure, as well as the risk of not doing the procedure, was discussed. The patient was given the opportunity to ask questions regarding the procedure and appeared competent to make medical decisions. A signed consent form which documents this discussion was placed in the medical record. Ultrasound evaluation of the abdomen for ascites was performed. Moderate amount of ascites is noted in the right lower quadrant. The site was marked. A timeout procedure was performed. The area was prepped and draped in usual sterile fashion. Using standard interventional and sterile techniques, lidocaine was used to anesthetize the region. A 6 [place] Pelf-C-Jxllrsbb closed needle/catheter system was introduced into the right lower quadrant using standard safety needle technique. Approximately 9.5 L of yellow fluid was removed into the Vacutainer bottles. The catheter was then removed. Good hemostasis was achieved. The patient demonstrated immediate symptomatic relief. The patient tolerated the procedure well. Dermabond and a sterile dressing was placed. The patient was discharged from the department in stable condition. COMPLICATIONS: None. IMPRESSION: Successful ultrasound-guided paracentesis yielding 9.5 L of fluid.
[2017-07-12 22:12] VITALS: BP 110/70
[2017-07-12 23:56] VITALS: BP 124/70
--- NOTE | 2017-07-13 04:03 | RADIOLOGY REPORT ---
EXAMINATION: XR PORTABLE CHEST CLINICAL INFORMATION: Chest pain COMPARISON: 07/07/2017 TECHNIQUE: Portable frontal view of the chest was obtained. FINDINGS: The lungs are hypoinflated. No focal consolidation is seen. No evidence of pneumothorax, pleural effusion, or pulmonary edema. The cardiomediastinal contour is unremarkable. There is a mildly displaced fracture of the posterolateral right sixth rib. An adjacent seventh rib fracture may also be present. IMPRESSION: Posterolateral right sixth and possible seventh rib fractures. No acute pulmonary findings identified.
[2017-07-13 05:47] VITALS: BP 100/58
--- NOTE | 2017-07-13 06:58 | PN- Oncology ---
Subjective Subjective: Complaining of rib pain, otherwise no new complaints 12 point review of systems unchanged Objective Vital Signs and I&Os Vital Signs Date Time Temp Pulse Resp B/P B/P Pulse O2 O2 Flow FiO2 Mean Ox Delivery Rate 07/13 0547 97.7 81 20 100/58 98 Room Air 07/12 2356 98.0 82 20 124/70 97 Room Air 07/12 2212 98.4 86 20 110/70 96 07/12 1425 98.1 85 16 110/70 96 07/12 0932 Room Air 3.0L 07/12 0923 Room Air 3.0L 07/12 0732 98.4 93 20 100/70 92 Room Air 07/12 0727 98.0 61 24 132/80 98 Nasal 3.0L Cannula 07/12 0726 98.4 93 20 100/70 92 Room Air Intake & Output 07/13 0800 07/13 0000 07/12 1600 07/12 0800 07/12 0000 07/11 1600 Intake Total 240 320 120 460 550 Output Total 250 350 200 200 Balance -250 -110 320 120 260 350 Intake, IV 10 Intake, Oral 240 320 120 450 550 Number 1 3 1 1 7 Bowel Movements Output, Urine 250 350 200 200 Gen.: in NAD ENT: Sclera anicteric Chest: Normal respiratory effort, decrease breath sounds Cor: RRR, no extra sounds Abdomen: Soft, bowel sounds present, no tenderness, no rebound, ascites Extremities: Without clubbing, cyanosis, or asymmetric edema Neurology: Alert , ? Slightly confused 3, no gross deficit Skin: No rashes Current Medications: Current Medications Sig/[place] Start time Last Medication Dose Route Stop Time Status Admin Albumin Human 75 GM ONCE ONE 07/12 1315 DC 07/12 IV 07/12 1316 1657 Enoxaparin Sodium 120 MG BID 07/07 0200 07/12 SC 2054 Guaifenesin/Codeine 10 ML Q6P PRN 07/13 0415 AC Phosphate PO Hydromorphone HCl 1 MG Q6-PRN PRN 07/09 1500 AC 07/12 PO 2347 Lactulose 30 GM TID 07/07 0200 AC 07/12 PO 1656 Lidocaine 2 PAT 0500 07/13 0500 AC 07/13 EXT 0457 Lidocaine 1 PAT DAILY 07/13 0230 CAN EXT Lidocaine 1 ML .STK-MED ONE 02/12 1249 DC ID 07/12 1250 Lidocaine 1 PAT DAILY 07/07 1000 DC 07/12 EXT 1903 Nystatin 1 PANCHO BID PRN 07/12 1445 AC 07/12 TOP 1903 Ondansetron HCl 4 MG Q6P PRN 07/07 0630 AC 07/12 IV 0244 Rifaximin 550 MG BID 07/07 1009 AC 07/12 PO 2052 Senna/Docusate Sodium 1 TAB BID PRN 07/06 2345 AC PO Sodium Chloride 1,000 MG TID 07/07 1000 AC 07/12 PO 2053 Sorafenib 200 MG 1700 07/07 1700 AC 07/12 PO 1848 Results Last 24 Hours of Lab Results: Laboratory Tests 07/13 07/12 0023 1150 Chemistry Troponin I (<0.11 ng/ml) < 0.01 Hematology Lymphocytes (%) 19 % Normal PMNs (%) 7 Other Body Source Fluid WBC (0 - 5 /CUMM) 100 H Fld Mesothelial Cells (%) Fld Total RBCs Counted (0 /CUMM) 179 H Recent Imaging Studies: Rib films-rib fractures Assessment/Plan Assessment/Recommendations: 1. Metabolic-stable 2. Hepatocellular carcinoma-continues on sorafenib, status post therapeutic paracentesis 3. Confusion-continues to slowly improve, would liberalize fluid restriction 4. Rib fracture-? Pathologic given previously normal bone scan 5. Overall status-poor prognosis, CODE STATUS has been changed
--- NOTE | 2017-07-13 07:40 | PN- Housestaff ---
See Addendum Subjective Follow-up For: Hepatocellular carcinoma Metabolic encephalopathy Subjective: patient complained of some rib pain and was found to have rib fractures patient's mental status is significantly improved from admission OOB with PT yesterday s/p therapeutic paracentesis yesterday patient's abdominal pain persists, more epigastric tenderness Review of Systems Constitutional: Reports: see HPI. Objective Last 24 Hrs of Vital Signs/I&O Vital Signs Date Time Temp Pulse Resp B/P B/P Pulse O2 O2 Flow FiO2 Mean Ox Delivery Rate 07/13 0547 97.7 81 20 100/58 98 Room Air 07/12 2356 98.0 82 20 124/70 97 Room Air 07/12 2212 98.4 86 20 110/70 96 07/12 1425 98.1 85 16 110/70 96 07/12 0932 Room Air 3.0L 07/12 0923 Room Air 3.0L Intake & Output 07/13 1600 07/13 0800 07/13 0000 Intake Total 100 240 Output Total 250 350 Balance -150 -110 Intake, Oral 100 240 Number 1 3 Bowel Movements Output, Urine 250 350 Physical Exam General Appearance: Alert, Oriented X3, Cooperative, No Acute Distress Cardiovascular: Regular Rate, Normal S1, Normal S2, No Murmurs, sternal and right costral tenderness Lungs: Clear to Auscultation, Normal Air Movement Abdomen: Normal Bowel Sounds, Soft, No Tenderness, hepatomegaly, less distended after paracentesis, diffusely tender more epigastric and right upper quadrant Extremities: No Clubbing, No Cyanosis, No Edema, Normal Pulses Current Medications: Current Medications Sig/[place] Start time Last Medication Dose Route Stop Time Status Admin Albumin Human 75 GM ONCE ONE 07/12 1315 DC 07/12 IV 07/12 1316 1657 Enoxaparin Sodium 120 MG BID 07/07 0200 07/12 SC 2054 Guaifenesin/Codeine 10 ML Q6P PRN 07/13 0415 AC Phosphate PO Hydromorphone HCl 1 MG Q6-PRN PRN 07/09 1500 AC 07/12 PO 2347 Lactulose 30 GM TID 07/07 0200 AC 07/12 PO 1656 Lidocaine 2 PAT 0500 07/13 0500 AC 07/13 EXT 0457 Lidocaine 1 PAT DAILY 07/13 0230 CAN EXT Lidocaine 1 ML .STK-MED ONE 07/12 1249 DC ID 07/12 1250 Lidocaine 1 PAT DAILY 07/07 1000 DC 07/12 EXT 1903 Nystatin 1 PANCHO BID PRN 07/12 1445 AC 07/12 TOP 1903 Ondansetron HCl 4 MG Q6P PRN 07/07 0630 AC 07/12 IV 0244 Rifaximin 550 MG BID 07/07 1009 AC 07/12 PO 2052 Senna/Docusate Sodium 1 TAB BID PRN 07/06 2345 AC PO Sodium Chloride 1,000 MG TID 07/07 1000 AC 07/12 PO 205 Sorafenib 200 MG 1700 07/07 1700 AC 07/12 PO 1848 Last 24 Hrs of Lab/Herber Results Last 24 Hrs of Labs/Mics: Laboratory Tests 07/13/17 0721: Sodium Pending, Potassium Pending, Chloride Pending, Carbon Dioxide Pending, Anion Gap Pending, BUN Pending, Creatinine Pending, BUN/Creatinine Ratio Pending , Calcium Pending, Total Bilirubin Pending, Direct Bilirubin Pending, AST Pending, ALT Pending, Alkaline Phosphatase Pending, Total Protein Pending, Albumin Pending, CBC w Diff Pending, WBC Pending, RBC Pending, Hgb Pending, Hct Pending, MCV Pending, MCH Pending, MCHC Pending, RDW Pending, Plt Count Pending, MPV Pending 07/13/17 0023: Troponin I < 0.01 07/12/17 1150: Lymphocytes 19, % Normal PMNs 7, Fluid WBC 100 H, Fld Mesothelial Cells , Fld Total RBCs Counted 179 H Microbiology 07/12 1150 BODY FLUID: Body Fluid Culture - RECD 07/12 1150 BODY FLUID: Gram Stain - RECD Assessment/Plan Assessment: 41y old gentleman with PMH obesity, hyperlipidemia, and back pain last discharged on 05/18/17 found to have multiple hepatic masses with hepatic failure and ascites and thrombus extending to right atrium presenting for altered mental status most likely due to hepatic encephalopathy Hepatic encephalopathy in the setting of hepatocellular cancer Continue lactulose and rifaximin Oncology consultations, appreciate recommendations GI consultation, appreciate recommendations Repeat abdominal paracentesis therapeutic by IR, ~10L removed and 75gram albumin given -f/u ascites cell count and differential, total protein, albumin, culture Gram stain and culture negative for SBP Hepatocellular carcinoma Continue sorafenib 200mg daily for HCC New rib fractures on chest x-ray, uncertain if pathologic Continue lidoderm and dilaudid for analgesia Hyponatremia: hypervolemic stable Liberate fluid restriction to 1300cc daily Continue salt tabs Holding lasix Hypercalcemia: secondary to malignancy s/p IV pamidronate 60mg treatment 07/07/17 Improved with IV bisphosphanate therapy from 11.4 -> 10.7 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 Hepatoma 2. Hyponatremia 3. Hepatic encephalopathy 4. Ascites 5. Liver mass 6. Hypercalcemia Pain Ratin Pain Location: abdominal and sternal Pain Goal: Pain 4 or less Pain Plan: prn Tomorrow's Labs & Rationales: bep, calcium, lfts
[2017-07-13 08:46] LABS: ABSOLUTE BASOPHIL COUNT 0 /CUMM (0.0-0.2); ABSOLUTE EOSINOPHIL COUNT 0.1 /CUMM (0.0-0.7); ABSOLUTE GRANULOCYTE CT 10.8 /CUMM (1.4-6.5); ABSOLUTE LYMPH COUNT 1.5 /CUMM (1.2-3.4); ABSOLUTE MONOCYTE COUNT 1.1 /CUMM (0.10-0.60); BASOPHIL % 0.1 % (0.0-2.0); EOSINOPHIL % 0.8 % (0-5); GRANULOCYTE % 79.8 % (42.2-75.2); HEMATOCRIT 36.7 % (42-52); MEAN CORPUSCULAR HGB 30.1 PG (27.0-31.0); MEAN CORPUSCULAR VOLUME 91.2 FL (80.0-94.0); MEAN PLATELET VOLUME 9.5 FL (7.4-10.4); PLATELET COUNT 145 /CUMM (130-400); RBC DISTRIBUTION WIDTH 17.3 % (11.5-14.5); RED BLOOD CELL CT 4.02 /CUMM (4.70-6.10); WHITE BLOOD CELL COUNT 13.5 /CUMM (4.8-10.8)
[2017-07-13 14:08] VITALS: BP 104/66
[2017-07-13] MEDS ORDERED: NEXAVAR200 MG PO (16:52)
[2017-07-13] MEDS ORDERED: DILAUDID2 M1 PO ×2 (16:55)
--- NOTE | 2017-07-13 16:56 | Patient Discharge Instructions ---
Discharge Instructions General Discharge Information You were seen/treated for: hepatocellular carcinoma metabolic encephalopathy hypercalcemia Acute Coronary Syndrome Inclusion Criteria At DC or during hospital stay patient has or had the following: ACS DIAGNOSIS No Discharge Core Measures Meds if any: Prescribed or Continued at Discharge Meds if any: NOT Prescribed or Continued at Discharge Congestive Heart Failure Inclusion Criteria At DC or during hospital stay patient has or had the following: CHF DIAGNOSIS No Discharge Core Measures Meds if any: Prescribed or Continued at Discharge Meds if any: NOT Prescribed or Continued at Discharge Cerebrovascular accident Inclusion Criteria At DC or during hospital stay patient has or had the following: CVA/TIA Diagnosis No Discharge Core Measures Meds if any: Prescribed or Continued at Discharge Meds if any: NOT Prescribed or Continued at Discharge Venous thromboembolism Inclusion Criteria VTE Diagnosis No VTE Type NONE VTE Confirmed by (Test) NONE Discharge Core Measures - Per Current guidelines, there needs to be overlap - treatment for the first 5 days of Warfarin therapy. - If discharged on Warfarin prior to 5 days of - overlap therapy, the patient will need to be - assessed for post discharge needs including - *Post discharge parental anticoagulation - *Warfarin and/or parental anticoagulation education - *Follow up date to check INR post discharge At least 5 days overlap therapy as Inpatient No Meds if any: Prescribed or Continued at Discharge Note: Overlap Therapy is Warfarin and Anticoagulant Meds if any: NOT Prescribed or Continued at Discharge
[2017-07-13 22:30] VITALS: BP 102/60
[2017-07-14 06:04] VITALS: BP 98/68
--- NOTE | 2017-07-14 08:04 | PN- Housestaff ---
See Addendum Subjective Follow-up For: Hepatocellular carcinoma Metabolic encephalopathy Subjective: patient complained of some rib pain and was found to have posterolateral displaced right 6th rib fractures patient's mental status is significantly improved s/p therapeutic paracentesis 10L removed patient's reports epigastric tenderness and sternal/left pleuritic chest pain that is well controlled with the lidocaine patch Review of Systems Constitutional: Reports: see HPI. Objective Last 24 Hrs of Vital Signs/I&O Vital Signs Date Time Temp Pulse Resp B/P B/P Pulse O2 O2 Flow FiO2 Mean Ox Delivery Rate 07/14 0604 98.2 89 20 98/68 95 Room Air 07/13 2230 98.1 91 19 102/60 94 Room Air 07/13 1600 Room Air 07/13 1408 97.4 85 18 104/66 94 Intake & Output 07/14 1600 07/14 0800 07/14 0000 Intake Total 300 300 Output Total 125 200 Balance 175 100 Intake, Oral 300 300 Output, Urine 125 200 Physical Exam General Appearance: Alert, Oriented X3, Cooperative, No Acute Distress Cardiovascular: Regular Rate, Normal S1, Normal S2, No Murmurs Lungs: Clear to Auscultation, Normal Air Movement Abdomen: Normal Bowel Sounds, Soft, distended but soft, hepatomegaly, diffuse tenderness to palpation Extremities: No Clubbing, No Cyanosis, No Edema, Normal Pulses Current Medications: Current Medications Sig/[place] Start time Last Medication Dose Route Stop Time Status Admin Enoxaparin Sodium 120 MG BID 07/07 0200 07/13 SC 2249 Guaifenesin/Codeine 10 ML Q6P PRN 07/13 0415 AC Phosphate PO Hydromorphone HCl 1 MG Q6-PRN PRN 07/09 1500 AC 07/13 PO 1452 Lactulose 30 GM TID 07/07 0200 DC 07/12 PO 1656 Lidocaine 2 PAT 0500 07/13 0500 07/14 EXT 0453 Nystatin 1 PANCHO BID PRN 07/12 1445 07/13 TOP 2248 Ondansetron HCl 4 MG Q6P PRN 07/07 0630 07/12 IV 0244 Patient Medication 1 ED ONE ONE 07/13 1100 DC Teaching ED 07/13 1101 Rifaximin 550 MG BID 07/07 1009 AC 07/13 PO 2248 Senna/Docusate Sodium 1 TAB BID PRN 07/06 2345 AC PO Sodium Chloride 1,000 MG TID 07/07 1000 AC 07/13 PO 2248 Sorafenib 200 MG 1700 07/07 1700 AC 07/13 PO 1702 Last 24 Hrs of Lab/Herber Results Last 24 Hrs of Labs/Mics: Laboratory Tests 07/13/17 0955: Anion Gap 7, Estimated GFR > 60, BUN/Creatinine Ratio 25.0, Calcium 10.5 H, Total Bilirubin 5.9 H, Direct Bilirubin 4.2 H, AST 182 H, ALT 66, Alkaline Phosphatase 161 H, Total Protein 5.7 L, Albumin 2.2 L Assessment/Plan Assessment: 41y old gentleman with PMH obesity, hyperlipidemia, and back pain last discharged on 05/18/17 found to have multiple hepatic masses with hepatic failure and ascites and thrombus extending to right atrium presenting for altered mental status most likely due to hepatic encephalopathy Hepatic encephalopathy in the setting of hepatocellular cancer Continue lactulose and rifaximin Oncology consultations, appreciate recommendations GI consultation, appreciate recommendations Repeat abdominal paracentesis therapeutic by IR, ~10L removed and 75gram albumin given Gram stain and culture negative for SBP Hepatocellular carcinoma Continue sorafenib 200mg daily for HCC New right rib fractures on chest x-ray, probably pathologic Continue lidoderm and dilaudid for analgesia Hyponatremia: hypervolemic stable Liberate fluid restriction to 1300cc daily Continue salt tabs Holding lasix Hypercalcemia: secondary to malignancy s/p IV pamidronate 60mg treatment 07/07/17 Improved with IV bisphosphanate therapy from 11.4 -> 10.5 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 Hepatoma 2. Hyponatremia 3. Hepatic encephalopathy 4. Ascites 5. Liver mass Pain Ratin Pain Location: abdominal Pain Goal: Pain 4 or less Pain Plan: lidoderm, dilaudid Tomorrow's Labs & Rationales: n/a
[2017-07-14] MEDS ORDERED: LIDOCAINE1 EACH TOP (09:10)
[2017-07-14] MEDS ORDERED: LACTULOSE10 GM/153 PO (09:10)
[2017-07-14 14:46] VITALS: BP 118/70
[2017-07-14 22:14] VITALS: BP 112/60
[2017-07-15 06:00] VITALS: BP 124/66
--- NOTE | 2017-07-15 08:41 | PN- Housestaff ---
See Addendum Subjective Follow-up For: Hepatocellular carcinoma Metabolic encephalopathy right rib fracture Subjective: patient's mental status is significantly improved patient's reports abdominal pain and chest tenderness, patient reports greater pain relief from the lidocaine patch than from the PO pain medication Review of Systems Constitutional: Reports: see HPI. Objective Last 24 Hrs of Vital Signs/I&O Vital Signs Date Time Temp Pulse Resp B/P B/P Pulse O2 O2 Flow FiO2 Mean Ox Delivery Rate 07/15 0855 98.4 85 18 124/66 07/15 0800 Room Air 07/15 0600 98.4 85 18 124/66 97 Room Air 07/15 0000 Room Air 07/14 2214 98.1 86 20 112/60 98 Room Air 07/14 1446 98.2 77 20 118/70 93 Intake & Output 07/15 1600 07/15 0800 07/15 0000 Intake Total 120 720 Output Total 200 Balance 120 520 Intake, Oral 120 720 Number 0 Bowel Movements Output, Urine 200 Physical Exam General Appearance: Alert, Cooperative, No Acute Distress Other Physical Findings: General Appearance: Alert, Oriented X3, Cooperative, No Acute Distress Cardiovascular: Regular Rate, Normal S1, Normal S2, No Murmurs Lungs: Clear to Auscultation, Normal Air Movement Abdomen: Normal Bowel Sounds, Soft, distended but soft, hepatomegaly, diffuse tenderness to palpation Extremities: No Clubbing, No Cyanosis, 2+ LE Edema, Normal Pulses Current Medications: Current Medications Sig/[place] Start time Last Medication Dose Route Stop Time Status Admin Enoxaparin Sodium 120 MG BID 07/07 0200 07/15 SC 1008 Guaifenesin/Codeine 10 ML Q6P PRN 07/13 0415 AC Phosphate PO Hydromorphone HCl 1 MG Q6-PRN PRN 07/09 1500 AC 07/14 PO 2104 Lidocaine 2 PAT 0500 07/13 0500 07/15 EXT 0512 Nystatin 1 PANCHO BID PRN 07/12 1445 07/13 TOP 2248 Ondansetron HCl 4 MG .STK-MED ONE 07/14 1324 DC IM 07/14 1325 Ondansetron HCl 4 MG Q6P PRN 07/07 0630 07/14 IV 1326 Patient Medication 1 ED ONE ONE 07/14 1330 DC Teaching ED 07/14 1331 Rifaximin 550 MG BID 07/07 1009 AC 07/15 PO 1008 Senna/Docusate Sodium 1 TAB BID PRN 07/06 2345 AC PO Sodium Chloride 500 ML BOLUS ONE 07/14 1515 DC 07/14 IV 07/14 1614 1559 Sodium Chloride 1,000 MG TID 07/07 1000 AC 07/15 PO 1008 Sorafenib 200 MG 1700 07/07 1700 AC 07/14 PO 1724 Assessment/Plan Assessment: 41y old gentleman with PMH obesity, hyperlipidemia, and back pain last discharged on 05/18/17 found to have multiple hepatic masses with hepatic failure and ascites and thrombus extending to right atrium presenting for altered mental status most likely due to hepatic encephalopathy Hepatic encephalopathy in the setting of hepatocellular cancer Continue lactulose, titrate to BMs Oncology consultations, appreciate recommendations GI consultation, appreciate recommendations Repeat abdominal paracentesis therapeutic by IR, ~10L removed and 75gram albumin given Gram stain and culture negative for SBP Hepatocellular carcinoma Continue sorafenib 200mg daily for HCC New right rib fractures on chest x-ray, probably pathologic Continue lidoderm and dilaudid for analgesia Hyponatremia: hypervolemic stable Liberate fluid restriction to 1300cc daily Continue salt tabs Holding lasix Hypercalcemia: secondary to malignancy s/p IV pamidronate 60mg treatment 07/07/17 Improved with IV bisphosphanate therapy from 11.4 -> 10.5 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 Hepatic encephalopathy 2. Hyponatremia 3. Hepatoma 4. Ascites 5. Liver mass Pain Ratin Pain Location: abdominal Pain Goal: Pain 4 or less Pain Plan: prn Tomorrow's Labs & Rationales: none anticipated discharge
[2017-07-15 08:55] VITALS: BP 124/66
[2017-07-15 13:45] VITALS: BP 120/60
== END 2017-07-15 15:48 | DRG 441 ==
LOC: DELPENDDIS → ERH 16:02 → 1NO 18:40 → 2NB 18:40 → 2NA 18:40 → ERHI 18:40 → 1NO 18:40 → ENRESERV 21:35 → ENTRNSPT 22:22 → EDTRNSPTSTS 22:32 → EDTRNSPT 22:32 → 2NB 22:42 → CMPTRNSPT 22:52 → ENTRNSPT 07-07 14:05 → EDTRNSPTSTS 07-07 14:14 → EDTRNSPT 07-07 14:14 → 1NO 07-07 14:39 → CMPTRNSPT 07-07 14:41 → 1NO 07-08 08:51 → ENTRNSPT 07-10 15:22 → EDTRNSPTSTS 07-10 15:46 → CMPTRNSPT 07-10 15:57 → 2NA 07-10 15:58 → ENPENDDIS 07-14 09:56 → 2NA 07-15 15:48
PROVIDERS: Physician Assistant Medical; Student in an Organized Health Care Education/Training Program
PROC: 0W9G3ZX Drainage of Peritoneal Cavity, Percutaneous Approach, Diagnostic (ICD-10-PCS; principal; 2017-07-07)
PROC: 0W9G3ZZ Drainage of Peritoneal Cavity, Percutaneous Approach (ICD-10-PCS; 2017-07-12)
DX: K72.90 Hepatic failure, unspecified without coma (principal); L89.323 Pressure ulcer of left buttock, stage 3; L89.313 Pressure ulcer of right buttock, stage 3; D68.4 Acquired coagulation factor deficiency; C22.0 Liver cell carcinoma; I82.890 Acute embolism and thrombosis of other specified veins; E87.1 Hypo-osmolality and hyponatremia; E83.52 Hypercalcemia; I51.3 Intracardiac thrombosis, not elsewhere classified; R18.8 Other ascites; M84.48XA Pathological fracture, other site, initial encounter for fracture; Z68.28 Body mass index [BMI] 28.0-28.9, adult; E66.9 Obesity, unspecified; E78.5 Hyperlipidemia, unspecified; Z66 Do not resuscitate; E87.70 Fluid overload, unspecified
CPT/HCPCS: 04007; 1NSP; 2NAP; 2NBSP; 87075; 36415; 71045; 81001; 82436; 87040; 87086; 93005; 93010; 96360; 97110-GO; 97162-GP; 97530-GO; J0696; J1650; J2405; J2430; J3490; J7040; P9047

== ENCOUNTER 2017-07-31 19:53 | Inpatient (IN) | payer OTHER ==
[~2017-07-31] VITALS: Ht 180.3 cm; Wt 99.8 kg
[~2017-07-31 19:53] MED LIST changes: +DILAUDID2 M1 PO; +LACTULOSE10 GM/153 PO; +NEXAVAR200 MG PO; +ZOFRAN4 M2 PO
--- NOTE | 2017-07-31 20:04 | ED AMS/SEIZURE/WEAK/DIZZY ---
History of Present Illness General Chief Complaint: General Adult Stated Complaint: BIBA HYPOTENSION Source: patient Exam Limitations: no limitations Vital Signs & Intake/Output Vital Signs & Intake/Output Vital Signs Date Time Temp Pulse Resp B/P B/P Pulse O2 O2 Flow FiO2 Mean Ox Delivery Rate 07/31 2351 98.7 86 18 93/57 96 07/317 92 16 109/64 96 Room Air 07/31 2044 97.8 84 16 95/55 98 Room Air 07/31 2016 82 16 98/57 97 Room Air 07/31 2006 97.9 84 18 97/57 97 Room Air ED Intake and Output 08/01 0000 07/31 1200 Intake Total 0 Output Total 0 Balance 0 Intake, Oral 0 Output, Urine 0 Patient 212 lb Weight Allergies Coded Allergies: NSAIDS (Non-Steroidal Anti-Inflamma (PER PT CANT TAKE DUE TO LIVER 05/27/17) codeine (PER PT VERY RAPID HEART RATE 05/27/17) Reconcile Medications Acetaminophen (Acephen) 650 MG SUPP.RECT 1 SUPP WI Q4H PRN PAIN/TEMP>100 ( Reported) Acetaminophen (Tylenol) 325 MG TABLET 2 TAB PO Q4H PRN PAIN/TEMP>100 ( Reported) Bisacodyl (Dulcolax) 10 MG SUPP.RECT 1 SUP RC AD PRN CONSTIPATION (Reported) Enoxaparin Sodium (Lovenox) 120 MG/0.8 ML SYRINGE 1 INJ SC BID CLOT . Hydromorphone HCl (Dilaudid) 2 MG TABLET 1 TAB PO Q6H PRN PAIN (Reported) Hydromorphone HCl 2 MG TABLET 1 TAB PO Q6H PRN MODERATE PAIN (Reported) Lactulose 10 GRAM/15 ML SOLUTION 30 ML PO TID ENCEPHALOPATHY (Reported) Lactulose 10 GRAM/15 ML SOLUTION 30 ML PO AD PRN <2BM/DAY (Reported) Lactulose 10 GRAM/15 ML SOLUTION 30 ML PO BID PRN AMMONIA LEVEL (Reported) Lidocaine 5 % ADH..PATCH 2 PAT TOP DAILY PAIN (Reported) Magnesium Hydroxide (Milk Of Magnesia) 400 MG/5 ML ORAL.SUSP 30 ML PO DAILY PRN CONSTIPATION (Reported) Magnesium Oxide (Magnesium) 400 MG CAPSULE 1 CAP PO DAILY SUPPLEMENT ( Reported) Montelukast Sodium 10 MG TABLET 1 TAB PO DAILY allergies/resp. (Reported) Na Phos,M-B/Na Phos,Di-Ba (Enema) 19 GRAM-7 GRAM/118 ML ENEMA 1 E WI DAILY PRN CONSTIPATION (Reported) Ondansetron HCl (Zofran) 4 MG TABLET 1 TAB PO Q8P PRN NAUSEA/VOMITING ( Reported) Sennosides/Docusate Sodium (Senna Plus Tablet) 8.6 MG-50 MG TABLET 2 TAB PO QHS CONSTIPATION (Reported) Sodium Chloride 1 GRAM TABLET 1 TAB PO TID SUPPLEMENT (Reported) Sodium Chloride (Saline Nasal [place]) 0.65 % SPRAY 1 SPRAY NASB Q4H PRN CONGESTION (Reported) Sorafenib Tosylate (Nexavar) 200 MG TABLET 1 TAB PO DAILY LIVER MASS ( Reported) Triage Nurses Notes Reviewed? yes Onset: Abrupt Duration: day(s):, constant, continues in ED Timing: recent history Injury Environment: home No Modifying Factors: none HPI: 41-year-old male with a history of liver CA with metastatic disease comes into the emergency room with increased weakness confusion and slurring of his words. Symptoms began going on worse over last couple days. In the past his calcium levels have been off. Comes in for further evaluation. (Abraham Mak) Past History Travel History Traveled to [place] past 21 day No Medical History Any Pertinent Medical History? 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 No (Abraham Mak) Review of Systems Review of Systems Constitutional: Reports: see HPI. EENTM: Reports: no symptoms. Respiratory: Reports: no symptoms. Cardiovascular: Reports: no symptoms. GI: Reports: see HPI. Genitourinary: Reports: no symptoms. Musculoskeletal: Reports: no symptoms. Skin: Reports: no symptoms. Neurological/Psychological: Reports: see HPI. Hematologic/Endocrine: Reports: no symptoms. Immunologic/Allergic: Reports: no symptoms. All Other Systems: Reviewed and Negative (Abraham Mak) Physical Exam Physical Exam General Appearance: lethargic, mild distress Head: atraumatic Eyes: Bilateral: normal appearance. Ears, Nose, Throat: normal ENT inspection Neck: normal inspection Respiratory: no respiratory distress Cardiovascular: regular rate/rhythm Gastrointestinal: soft, distention Back: normal inspection Extremities: pedal edema Neurologic/Psych: awake Skin: jaundice Core Measures ACS in differential dx? No CVA/TIA Diagnosis No Sepsis Present: No Sepsis Focused Exam Completed? No (Abraham Mak) Progress Differential Diagnosis: anemia, CVA/stroke, dehydration, encephalitis, electrolyte imbalance, intracranial mass/tumor, pneumonia, sepsis Plan of Care: Orders Procedure Date/time Status Regular Diet 08/01 B Active PROTHROMBIN TIME 08/01 0600 Active LIPID PANEL 08/01 0600 Active HEPATIC FUNCTION PANEL 08/01 0600 Active CBC WITHOUT DIFFERENTIAL 08/01 0600 Active BASIC ELECTROLYTES PLUS BUN&CR 08/01 0600 Active Pathway - chart 07/31 2338 Active CULTURE,BODY FLUID 07/31 2328 Active BODY FLUID TOTAL PROTEIN 07/31 2328 Active BODY FLUID LDH 07/31 2328 Active BODY FLUID CELL COUNT 07/31 2328 Active BODY FLUID GLUCOSE 07/31 2328 Active BODY FLUID ALBUMIN 07/31 2328 Active URINALYSIS 07/31 2310 Active LACTIC ACID 07/31 2304 Complete Code Status 07/31 2243 Active Lab Add-on Test 07/31 2235 Active Saline Lock 07/31 2228 Active Pathway - chart 07/31 2228 Active House Staff 07/31 222 Active OXYGEN SETUP (GEN) 07/31 2153 Active Saline Lock 07/[address] in observation 07/31 2153 Active Vital Signs 07/31 2153 Active Activity/Ambulation 07/31 2153 Active Code Status 07/31 215 Complete Patient Data 08/01 2151 Active BLOOD CULTURE 07/31 2004 Active PHOSPHORUS 07/31 2004 Complete MAGNESIUM 07/31 2004 Complete PARTIAL THROMBOPLASTIN TIME 08/01 2003 Complete PROTHROMBIN TIME 08/01 2003 Complete AMMONIA 08/01 2003 Complete LIPASE 08/01 2003 Complete LACTIC ACID 08/01 2003 Complete COMPREHENSIVE METABOLIC PANEL 08/01 2003 Complete CBC WITHOUT DIFFERENTIAL 08/01 2003 Complete EKG 08/01 2003 Active Intake & Output 07/31 1959 Active VTE Mechanical Prophylaxis 07/31 UNK Active Current Medications Sig/[place] Start time Last Medication Dose Stop Time Status Admin Montelukast Sodium 10 MG DAILY 08/01 1000 UNVr (Singulair) Sodium Chloride 1,000 MG TID 08/01 1000 UNVr (Sodium Chloride) Heparin Sodium 5,000 UNIT Q8 08/01 0600 CANr (Porcine) Hydromorphone HCl 1 MG Q6-PRN PRN 07/31 2345 UNVr (Dilaudid) Lactulose 20 GM TID 07/31 234 UNVr (Enulose 20GM/30ML) Ondansetron HCl 4 MG Q8 PRN 07/31 2345 UNVr (Zofran) Senna/Docusate Sodium 2 TAB .[QHS] 07/31 234 UNVr (Senokot S) Sodium Chloride 1 SPRAY Q4H PRN 07/31 2345 UNVr (Nasal) Heparin Sodium/ 25,000 UNIT Q24H 07/31 2330 UNVr Dextrose (Heparin) Dextrose/Water 500 ML (D5W) Albumin Human 12.5 GM ONCE ONE 07/31 231 UNVr (Plasbumin) 07/31 2316 Non-Formulary 0 SEE ADMIN CRITERIA 07/31 2315 UNVr Medication (NON FORMULARY) Sodium Chloride 1,000 ML Q13H 07/31 2300 UNVr (Normal Saline 0.9%) Laboratory Tests 07/31/17 2345: Fluid WBC Pending, Fld Total RBCs Counted Pending 07/31/17 2345: Fluid Glucose Pending, Fluid Total Protein Pending, Fluid Albumin Pending, Fluid LDH Pending 07/31/17 2312: Lactic Acid 4.3 H 07/31/172004: Anion Gap 9, Estimated GFR 23 L, BUN/Creatinine Ratio 12.0, Glucose 82, Lactic Acid 4.8 H, Calcium 11.0 H, Phosphorus 4.7 H, Magnesium 2.1, Total Bilirubin 7.9 H, AST 452 H, ALT 130 H, Alkaline Phosphatase 313 H, Ammonia 10, Total Protein 6.1 L, Albumin 2.0 L, Globulin 4.1, Albumin/Globulin Ratio 0.5 L, Lipase 63, PT 21.7 H, INR 2.08 H, APTT 69 H, CBC w Diff MAN DIFF ORDERED, RBC 4.82, MCV 92.1, MCH 29.1, MCHC 31.6 L, RDW 22.0 H, MPV 8.5, Gran % 68.5, Lymphocytes % 21.0, Monocytes % 9.3, Eosinophils % 0.8, Basophils % 0.4, Absolute Granulocytes 11.7 H, Segmented Neutrophils 79 H, Band Neutrophils 1, Absolute Lymphocytes 3.6 H, Lymphocytes 13 L, Monocytes 7, Absolute Monocytes 1.6 H, Absolute Eosinophils 0.1, Absolute Basophils 0.1, Nucleated RBCs 1 H, Platelet Estimate VERIFIED BY SMEAR, Poikilocytosis FEW, Anisocytosis 1+, Target Cells FEW, [place] Cells FEW, Fld Total RBCs Counted 100 Microbiology 07/31 2344 BODY FLUID: Body Fluid Culture - RECD 07/31 2344 BODY FLUID: Gram Stain - RECD 07/31 2004 BLOOD: Blood Culture - RECD 08/01 1999 BLOOD: Blood Culture - RECD Diagnostic Imaging: Viewed by Me: CT Scan. Discussed w/RAD: CT Scan. Radiology Impression: PATIENT: YOLANDA MCDOWELL PRESENT AGE: 41 PATIENT ACCOUNT NO: [id number] : 73 LOCATION: [facility] ORDERING PHYSICIAN: Abraham HERNANDEZ SERVICE DATE: 07/31/17 EXAM TYPE: CAT - CT ABD & PELVIS W/O IV CONTRAS EXAMINATION: CT ABDOMEN AND PELVIS WITHOUT CONTRAST CLINICAL INFORMATION: Acute renal failure. Assess for obstructive uropathy. COMPARISON: Abdominal MRI 05/15/2017. TECHNIQUE: Multidetector volumetric imaging was performed from the superior aspect of the liver through the pubic symphysis. Sagittal and coronal reformatted images were obtained on the technologist's workstation. DLP: 1724 mGy-cm FINDINGS: LUNG BASES: The visualized lung bases are unremarkable. PERITONEAL CAVITY: Large volume of ascites. LIVER, GALLBLADDER, AND BILIARY TREE: Numerous hepatic lesions are redemonstrated, replacing the majority of the hepatic parenchyma. Cholelithiasis versus hyperdense biliary sludge. No evidence of significant biliary ductal dilatation. PANCREAS: Unremarkable. SPLEEN: Unremarkable. ADRENAL GLANDS: Unremarkable. KIDNEYS AND URETERS: No hydronephrosis. There are a a few punctate nonobstructing calculi in the lower poles of the bilateral kidneys. No suspicious renal mass. BLADDER: Unremarkable. GASTROINTESTINAL TRACT: Bowel gas pattern is nonobstructive. No evidence of acute bowel pathology. Bowel surgical material in the right lower quadrant. The appendix is not visualized. ABDOMINAL WALL: Ascites tracks into the right inguinal canal. LYMPH NODES: No bulky adenopathy. VASCULAR: Minimal atherosclerotic calcification. PELVIC VISCERA: Ascites tracks into the pelvis. Prostate gland and seminal vesicles are unremarkable. OSSEOUS STRUCTURES: Multilevel lumbar Schmorl's nodes. No new osseous lesion demonstrated. There are subacute left rib fractures. IMPRESSION: 1. No evidence of obstructive uropathy. A couple bilateral nonobstructing tiny renal calculi. 2. Numerous hepatic lesions throughout the entirety of the liver, most consistent with malignancy. 3. Large volume of ascites. DICTATED BY: Van Stokes MD DATE/TIME DICTATED:07/31/172148 RUG HOOKER:ROSA DATE/ TIME TRANSCRIBED:07/31/172148 CONFIDENTIAL, DO NOT COPY WITHOUT APPROPRIATE AUTHORIZATION. <Electronically signed in Other Vendor System> SIGNED BY: Van Stokes MD 07/31/172 Initial ED EKG: normal sinus rhythm, rate (81), BORDERLINE T WAVE ABNORMALITIES (Abraham Mak) Departure Departure Disposition: STILL A PATIENT Condition: Stable Clinical Impression Primary Impression: Acute renal failure Secondary Impressions: Liver cancer Referrals: Chiquis POLANCO,Jordan Polk (PCP/Family) Departure Forms: Customer Survey General Discharge Information Observation Note [facility]: [facility] Notified: ROBLES ALFORD DO Place Patient In: Non-ED OBS Care Area Rationale for Observation: My rational for observation is as follows . Patient is acute renal failure. He will require gentle IV hydration. Patient has a chronically elevated white blood cell count and chronically elevated lactic acid. He is afebrile. I do not feel that the patient is in acute (Abraham Mak) PA/FIREPROOF DOOR ASSEMBLER Co-Sign Statement Statement: ED Attending supervision documentation- x I saw and evaluated the patient. I have also reviewed all the pertinent lab results and diagnostic results. I agree with the findings and the plan of care as documented in the PA's/FIREPROOF DOOR ASSEMBLER's documentation. Liver cancer with ARF, ascities [] I have reviewed the ED Record and agree with the PA's/FIREPROOF DOOR ASSEMBLER's documentation. [] Additions or exceptions (if any) to the PAs/FIREPROOF DOOR ASSEMBLER's note and plan are summarized below: [] (Benny POLANCO,Jaydon) Procedures Peritoneal Lavage Peritoneal Lavage Procedure: Yes: betadine prep. Anesthesia: local CC's of Anesthesia: 8 Position: SUBUMBILICAL RIGHT LOWER ABDOMEN Fluid Collected: SEROSANGUINEOUS BLOODY TINGED Progress: Diagnostic paracentesis, chlorhexidine prep, local lidocaine, 60 mL removed, (Abraham Mak)
[2017-07-31] MEDS ORDERED: LACTULOSE10 GM/153 PO ×3 (20:18→20:56)
[2017-07-31 20:19] LABS: ABSOLUTE BASOPHIL COUNT 0.1 /CUMM (0.0-0.2); ABSOLUTE EOSINOPHIL COUNT 0.1 /CUMM (0.0-0.7); ABSOLUTE GRANULOCYTE CT 11.7 /CUMM (1.4-6.5); ABSOLUTE LYMPH COUNT 3.6 /CUMM (1.2-3.4); ABSOLUTE MONOCYTE COUNT 1.6 /CUMM (0.10-0.60); BASOPHIL % 0.4 % (0.0-2.0); EOSINOPHIL % 0.8 % (0-5); HEMATOCRIT 44.4 % (42-52); MEAN CORPUSCULAR HGB 29.1 PG (27.0-31.0); MEAN CORPUSCULAR HGB CONC 31.6 G/DL (33.0-37.0); MEAN CORPUSCULAR VOLUME 92.1 FL (80.0-94.0); MEAN PLATELET VOLUME 8.5 FL (7.4-10.4); PLATELET COUNT 294 /CUMM (130-400); RED BLOOD CELL CT 4.82 /CUMM (4.70-6.10)
[2017-07-31] MEDS ORDERED: LIDOCAINE1 EACH TOP (20:19)
[2017-07-31] MEDS ORDERED: DILAUDID2 M1 PO (20:27)
[2017-07-31] MEDS ORDERED: ACEPHEN650 M1 PR (20:29)
[2017-07-31] MEDS ORDERED: TYLENOL325 M1 PO (20:37)
[2017-07-31] MEDS ORDERED: SALINE NASAL SP30 ML NASB (20:38)
[2017-07-31 20:44] LABS: GRANULOCYTE % 68.5 % (42.2-75.2)
[2017-07-31 20:45] LABS: PT 21.7 SEC (9.4-12.5); PTT 69 SEC (25-37)
[2017-07-31] MEDS ORDERED: DULCOLAX10 M1 RC (20:52)
[2017-07-31] MEDS ORDERED: ENEMA133 M1 PR (20:54)
[2017-07-31] MEDS ORDERED: MILK OF MA400 MG/52 PO (20:56)
[2017-07-31] MEDS ORDERED: HYDROMORPHONE HC2 M1 PO (20:57)
--- NOTE | 2017-07-31 21:32 | History & Physical ---
Ana Lomas MD 07/31/172130: General Information and HPI MD Statement: I have seen and personally examined YOLANDA MCDOWELL and documented this H&P. The patient is a 41 year old M who presented with a patient stated chief complaint of confusion and weakness/clumsiness Source of Information: family, old records Exam Limitations: unable to give history History of Present Illness: Patient is a 41-year-old male with a past medical history significant for hepatocellular carcinoma diagnosed in April 2017 with history of NAFL, NO hepatitis, blood transfusions, alcoholism, currently on sorafenib, hyperlipidemia, recent admission for confusion secondary to hepatic encephalopathy/hypercalcemia, coagulopathy secondary to liver dysfunction, recently put on Lovenox 120 mg for large thrombus, osteopenia, found to have rib fracture on last admission, no evidence of metastases on PET scan as per patient 's parents, that is brought in by ambulance today from [place] for recent deterioration in neuro function. The patient's parents give most of the history as the patient is altered. The patient usually has some degree of motor and speech impediment, does have lucid periods, but has acutely worsened in the past 2-3 days. He is not able to hold onto objects, has decreased strength, has not been eating or drinking, has had aphasia, and is just generally slower. The patient also had one episode of nausea and vomiting yesterday. The parents state that the patient has had several loose stools in the past day that they attribute to his lactulose. They states that he was not given lactulose for the past several days but was given it yesterday which caused him to have loose stools. According to the parents, the blood pressure found acutely yesterday was 80/57 so the patient did not participate in physical therapy. He was told to increase his by mouth fluid intake (but this day beneath 1200 mL as he is on fluid restriction) but no other action was taken for this low blood pressure. The parents also state that the patient has been having abdominal pain secondary to his ascites, last Wednesday apparently he had 11 L of fluid removed. Patient has routine fluid removal on Tuesdays. The patient's parents also state that he has had a cough but that this has gone on since last October, it apparently precedes episodes of vomiting. The vomit is bilious, does not contain blood. The parents also state that the patient's urine has been very dark and of low volume. The patient does have shortness of breath on sitting up, none on lying down. Additionally they state that the patient has had cold extremities but diaphoresis on and off. On the patient's lab work yesterday at [place], his ammonia level was found to be 28. His calcium level was found to be over 17 on his last admission to for AMS in April. The patient was treated with bisphosphonates IV and rifaximin/ lactulose then (lactulose was to be continued outpatient). He was also prescribed Lidoderm and Dilaudid for pain secondary to a new rib fracture that was found on x-ray. Apparently the patient had a PET scan afterwards with Dr. Aponte and was not found to have metastatic disease. Additionally the patient had hyponatremia and was put on fluid restriction of 1200 mL daily and salt tablets. The patient has not walked in 1 day. Apparently yesterday, the patient had a drop episode, no loss of consciousness, no injury, no seizure activity, was caught by an aide that was standing behind him. The patient usually ambulates with a walker and as stated is currently in physical therapy. He currently resides at [place] since his last admission here. Otherwise the patient lives with his parents. The patient has lost a total of 100 pounds in the last year, partially intentional in the beginning, then due to the cancer. The parents deny the patient having any fever, headache, rash, episodes of auditory or visual hallucinations witnessed, increased bleeding, hematuria, urinary urgency or frequency, bloody or dark stools, constipation. The patient's PCP is Dr. Campos. His oncologist is Dr. Sevilla. He was next supposed to see Dr. Sevilla next Wednesday. The patient has never smoked, drank alcohol, done drugs. Allergies/Medications Allergies: Coded Allergies: NSAIDS (Non-Steroidal Anti-Inflamma (PER PT CANT TAKE DUE TO LIVER 05/27/17) codeine (PER PT VERY RAPID HEART RATE 05/27/17) Home Med list Acetaminophen (Acephen) 650 MG SUPP.RECT 1 SUPP MI Q4H PRN PAIN/TEMP>100 ( Reported) Acetaminophen (Tylenol) 325 MG TABLET 2 TAB PO Q4H PRN PAIN/TEMP>100 ( Reported) Bisacodyl (Dulcolax) 10 MG SUPP.RECT 1 SUP RC AD PRN CONSTIPATION (Reported) Enoxaparin Sodium (Lovenox) 120 MG/0.8 ML SYRINGE 1 INJ SC BID CLOT . Hydromorphone HCl (Dilaudid) 2 MG TABLET 1 TAB PO Q6H PRN PAIN (Reported) Hydromorphone HCl 2 MG TABLET 1 TAB PO Q6H PRN MODERATE PAIN (Reported) Lactulose 10 GRAM/15 ML SOLUTION 30 ML PO TID ENCEPHALOPATHY (Reported) Lactulose 10 GRAM/15 ML SOLUTION 30 ML PO AD PRN <2BM/DAY (Reported) Lactulose 10 GRAM/15 ML SOLUTION 30 ML PO BID PRN AMMONIA LEVEL (Reported) Lidocaine 5 % ADH..PATCH 2 PAT TOP DAILY PAIN (Reported) Magnesium Hydroxide (Milk Of Magnesia) 400 MG/5 ML ORAL.SUSP 30 ML PO DAILY PRN CONSTIPATION (Reported) Magnesium Oxide (Magnesium) 400 MG CAPSULE 1 CAP PO DAILY SUPPLEMENT ( Reported) Montelukast Sodium 10 MG TABLET 1 TAB PO DAILY allergies/resp. (Reported) Na Phos,M-B/Na Phos,Di-Ba (Enema) 19 GRAM-7 GRAM/118 ML ENEMA 1 E MI DAILY PRN CONSTIPATION (Reported) Ondansetron HCl (Zofran) 4 MG TABLET 1 TAB PO Q8P PRN NAUSEA/VOMITING ( Reported) Sennosides/Docusate Sodium (Senna Plus Tablet) 8.6 MG-50 MG TABLET 2 TAB PO QHS CONSTIPATION (Reported) Sodium Chloride 1 GRAM TABLET 1 TAB PO TID SUPPLEMENT (Reported) Sodium Chloride (Saline Nasal [place]) 0.65 % SPRAY 1 SPRAY NASB Q4H PRN CONGESTION (Reported) Sorafenib Tosylate (Nexavar) 200 MG TABLET 1 TAB PO DAILY LIVER MASS ( Reported) Compliance With Home Meds: GOOD Past History Travel History Traveled to [place] past 21 day No Medical History Neurological: intermittent confusion- hyperCa2+, PSE, HCC EENT: NONE Cardiovascular: hyperlipidemia Respiratory: NONE Gastrointestinal: NONE Hepatic: cirrhosis, hepatic encephalopathy, elevated enzymes multifocal HCC- unresectable, not cndidate for RFA- on Sorafenib Renal: resolved PHYLICIA- 04/2017 Musculoskeletal: chronic back pain, osteopenia Psychiatric: NONE Endocrine: hypoglycemia, osteopenia hyperCa2+ due to malignancy Blood Disorders: coagulopathy (cirrhotic/HCC) 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 Acute [facility]hab Who Do You Live With? parent, [place] after last discharge Services at Home: None Primary Language: Luxembourgish Smoking Status: Never Smoked Living Will? unknown Power of Civil Cad Tech/HCP? unknown Functional Ability ADLs Unknown: dressing, eating, toileting, bathing. Ambulation: unknown IADLs Unknown: shopping, housework, finances, food prep, telephone, transportation, medication admin. Review of Systems Review of Systems Constitutional: Reports: see HPI, chills, diaphoresis, weakness. EENTM: Reports: icterus. Cardiovascular: Reports: peripheral edema. Respiratory: Reports: cough, short of breath. GI: Reports: nausea, changes in stool, vomiting. Genitourinary: Reports: see HPI. Musculoskeletal: Reports: muscle pain. Skin: Reports: jaundice. Neurological/Psychological: Reports: confusion. Hematologic/Endocrine: Reports: no symptoms. Immunologic/Allergic: Reports: see HPI. Exam & Diagnostic Data Last 24 Hrs of Vital Signs/I&O Vital Signs Date Time Temp Pulse Resp B/P B/P Pulse O2 O2 Flow FiO2 Mean Ox Delivery Rate 08/01 004 98.0 86 20 90/54 97 Room Air 07/31 2351 98.7 86 18 93/57 96 07/31 210 92 16 109/64 96 Room Air 07/31 2044 97.8 84 16 95/55 98 Room Air 07/31 2016 82 16 98/57 97 Room Air 07/31 2006 97.9 84 18 97/57 97 Room Air Intake & Output 08/01 0800 08/01 0000 07/31 1600 Intake Total 0 Output Total 0 Balance 0 Intake, Oral 0 Output, Urine 0 Patient 220 lb 212 lb Weight Physical Exam General Appearance Alert, Cooperative, No Acute Distress Skin No Rashes, No Breakdown, No Significant Lesion, spider angiomata abdomen, striations Skin Temp/Moisture Exam: Warm/Dry Sepsis Skin Exam (color): Jaundiced HEENT Atraumatic, PERRLA, EOMI, Mucous Membr. moist/pink, scleral icterus Neck Supple, No JVD Cardiovascular Regular Rate, Normal S1, Normal S2, No Murmurs, Gallops, Rubs Lungs Clear to Auscultation, Normal Air Movement Abdomen Normal Bowel Sounds, No Tenderness, No Masses, tense, distended abdomen. positive fluid shift. nontender on palpation. spider angiomata and striations. hepatomegaly. Neurological Normal Speech, Normal Tone, Sensation Intact, Cranial Nerves 3-12 NL, Reflexes 2+, strength 3-4/5 in all extremities, bilaterally equivalant. Extremities No Clubbing, No Cyanosis, Normal Pulses, 3+ pitting edema bilaterally up to the level of the upper calf Vascular Normal Pulses, Pulses Symmetrical Sepsis Peripheral Pulse Location: Radial Sepsis Peripheral Pulse Exam: Normal Sepsis Cap Refill Exam: <2 Sec Assessment/Plan Assessment: Patient is a 41-year-old male with a past medical history significant for hepatocellular carcinoma diagnosed in April 2017 with history of NAFL, NO hepatitis, blood transfusions, alcoholism, currently on sorafenib, hyperlipidemia, recent admission for confusion secondary to hepatic encephalopathy/hypercalcemia, coagulopathy secondary to liver dysfunction, recently put on Lovenox 120 mg for large thrombus, osteopenia, found to have rib fracture on last admission, no evidence of metastases on PET scan as per patient 's parents, that is brought in by ambulance today from [place] for recent deterioration in neuro function. The patient's parents give most of the history as the patient is altered. Patient was recently admitted to for hypercalcemia , hepatic encephalopathy in April when his cancer was diagnosed. He was put on lactulose but apparently it was not given in [place]. He now presents with confusion and motor deterioration. The patient usually has some degree of motor and speech impediment but has acutely worsened in the past 2-3 days. In the ED, patient's vital signs were temperature 97.9, 84 pulse rate, respiratory rate 18, blood pressure 97/57, 97% oxygen saturation on room air. Labs are pertinent for WBC count of 17, sodium of 127, potassium 5.1, hemoglobin 14.1, BUN 36, creatinine 3.0 up from his baseline of 0.9 (patient has had acute kidney injury in the past), lactic acid 4.8, calcium 11 corrected to 12.6, albumin 2, total bilirubin 7.9, AST 452, ALP 130, alkaline phosphatase 313, ammonia level 10, INR 2.08, PTT 69. CT abdomen shows a couple bilateral nonobstructing tiny renal calculi, numerous hepatic lesions throughout the entirety of the liver consistent with his malignancy, and a large volume of ascites. EKG showed normal sinus rhythm at a rate of 81, normal QTC. In the ED, diagnostic paracentesis was done yielding serosanguineous fluid. Labs were put in for Gram stain, cell count, culture, protein, albumin, and glucose. Blood cultures 2 were taken. Plan Patient will be placed in observation on the general medical floors for evaluation, treatment, stabilization and IV medications: Altered mental status: Differential for patient's confusion include hepatic encephalopathy as patient has not been given lactulose, uremia as patient does have elevated BUN and creatinine and has been urinating less, hypercalcemia as patient's corrected calcium level is high, dehydration as patient's BUN and creatinine are elevated, sepsis/SBP as patient does have elevated white cell count and lactic acid and gets frequent taps that could introduce bacteria, metastases to the brain although this is less likely given the patient's acute deterioration and recent clear head CT, stroke as patient is hypercoagulable but is on Lovenox 120 mg per day (which makes this less likely). Ammonia level was 28 at [facility], today is 10. -Give pamidronate in slow infusion over 24 hours, 60 mg IV for patient's malignancy associated hypercalcemia. Alexis Best MD, geodesy teacher is aware and will see the patient. -Follow up calcium levels -Start patient on 75 mL per hour of normal saline with albumin 12.5 g once for patient's dehydration/hypoalbuminemia. This will decrease the risk of third spacing. -Monitor patient for fever, increase in white blood cell count, blood cultures, ascitic fluid culture, trends lactic acid for evidence of infection. Hold antibiotics pending evidence of infection. -Place consult with Dr. Aponte who is the patient's oncologist. Apparently patient had recent PET scan showed no metastases. Defer to Dr. Aponte for metastatic workup. Common sites of hepatocellular carcinoma metastases are lung , abdominal lymph node, and bone. -Consider CT head without contrast for evaluation of stroke in hypercoagulable patient. See below discussion for anticoagulation. -Phosphate and magnesium levels for questionable electrolyte abnormalities Hepatocellular carcinoma -Sorafenib is not available at our hospital, daily has been instructed to bring in his medication for dosing, currently on hold. -We will place consult with his oncologist Dr. Aponte -Ascites secondary to advanced hepatocellular carcinoma: patient has large volume ascites and thus we will do a therapeutic tap tomorrow to relieve pressure, make breathing easier, and allow us to give more fluids as needed. Recent history of thrombus -Patient is on 120 mg of Lovenox outpatient. However with his acute kidney injury we will stop this medication and heparinize the patient. -As patient only has 2 lines and is a hard stick, we will hold heparin until morning and give fluids with albumin and pamidronate. -PTT/PT PHYLICIA: Patient has had acute kidney injury in the past. He is dehydrated (has had 11L removed at last paracentesis) even on his fluid restriction of 1200 mL daily. Patient was not on Lasix outpatient but has been given it in the past for his extensive edema. Causes could be a hypotension secondary to dehydration , sepsis, his blood pressure in the ED is found to be 93/57, post renal causes such as obstruction due to stone or tumor compression, or intrarenal causes including drug induced injury or hepatorenal syndrome or even mets to kidney/ renal vein thrombosis for example. -Patient will be given albumin to decrease his third spacing. -Hold Lasix for now. -Patient will be given fluids at a rate of 75 mL per hour normal saline -Urinalysis -Bladder scan for potential obstruction -Test integrity of kidney itself with fractional excretion of sodium, urine lytes, urine osmolality. Patient has not been on any medications directly toxic to the kidneys. Hepatocellular carcinoma does not usually metastasize to the kidneys but renal vein thrombosis is a possibility. -Nephrology consult for recurrence of patient's PHYLICIA. Patient has been seen by Vadim Carmichael MD in the past while he has been inpatient here. -Hepatorenal syndrome is a possibility with hyponatremia, low urine sodium, hypotension. We will consult with Dr. Carmichael regarding this. Hyponatremia: 127 sodium. Patient is hypotonic serum osm calculated 271 and vascularly hypovolemic causing elevated ADH state. Patient found on previous admission to have hyponatremia unresponsive to normal saline bolus. -Urine lytes, urine osm, serum osm -Sodium chloride tabs 1 g 3 times a day and fluid restriction to 1200cc -Follow up Na -Nephorology consult Nausea and vomiting: -Zofran 4 mg every 8 hours as needed Pain: Patient has previous rib fractures and compression fractures at L1, L2, L4 on lumbosacral spine films and a bandaged pressure ulcer -1 mg Dilaudid every 6 when necessary -Skin/pressure ulcer assess Patient is DNR/DNI DVT prophylaxis with ALPs and heparin restarted in the morning Regular diet with 1200cc restriction As Ranked By This Provider Problem List: 1. Liver cancer 2. Coagulopathy 3. Cirrhosis 4. Hyponatremia 5. Hepatic encephalopathy 6. Ascites 7. Hypercalcemia 8. Acute renal failure Core Measures/Misc (02/14) Acute Coronary Syndrome ACS Diagnosis: No Congestive Heart Failure Congestive Heart Failure Diagnosis No Cerebrovascular Accident CVA/TIA Diagnosis: No VTE (View Protocol) VTE Risk Factors VTE (Previous) No Mechanical VTE Prophylaxis d/t N/A MechProphylax Ordered No VTE Pharm Prophylaxis d/t NA PharmProphylax ordered Sepsis (View protocol) Sepsis Present: No Valerie Rizo 08/01/17 0036: Resident Review Statement Resident Statement: examined this patient, discussed with product development intern, agreed with product development intern, discussed with family, reviewed EMR data (avail), discussed with nursing , reviewed images Other Findings: 41y old male with PMH obesity, hyperlipidemia, and back pain found to have multiple hepatic masses with hepatic failure, RECURRENT ascites on therapeutic thoracentesis every week. He was recently discharge from after been treated for hepatic encephalopathy, hypercalcemia and hyponatremia and found to have thrombus extending to right atrium on SC lovenox. The patient presenting for AMS /confusion, N/V and found to have PHYLICIA, he found to be confused which is most likel 2/2 hepatic encephalopathy, uremia and dehydration in the setting of hepatocellular cancer, hypercalcemia and hyponatremia. He received a diagnostic paracentesis wich showed WBC<200 with PMN of 55%. patient is under observation at [facility], will hydrate him with 1 bag of NS, will hold Lasix, lactulose as instructed, therapeutic paracentesis at am and afterward start IV heparin ( Lovenox on hold given the PHYLICIA), albumin 25% 12.5 g TID, case discussed with geodesy teacher who recommend IV pamidronate over 24 hours slow infusion, nephrology consult, oncology consult, chemotherapy( Sorafenib on hold) DNR/DNI Plan discussed with nursing staff, patient needs 2 IV access, as he needs slow pamidronate infusion, 1 bag of NS and afterward IV heparin after therapeutic paracentesis by SOLEDAD Looney MD, [facility] 08/01/17 0648: Attending MD Review Statement Attending Statement Attending MD Statement: examined this patient, discuss w/resident/PA/COMPLIANCE ENGINEER, agreed w/resident/PA/COMPLIANCE ENGINEER, discussed with family, reviewed images, amended to note Attending Assessment/Plan: 41 yo M with h/o hepatocellular carcinoma on sorafinib, requiring weekly therapeutic paracentesis, hyponatremia, recently admitted to [facility] (Jul 2017) for hepatic encephalopathy, hypercalcemia and IVC thrombus on lovenox, is brought in from [place] for increasing weakness, fatigue, slurring of speech, confusion, poor PO intake for the past 2-3 days. Family at bedside provides history. Patient was noted to be hypotensive to 85/59 while at the facility. His last paracentesis was on Wednesday (07/26) when 10.5 L were removed and he is due for next para on Wednesday. Family noted patient has not been eating/ drinking enough (despite restriction), with low urine output and dark urine (not foul smelling). Nausea+, vomiting+. Also, his lactulose was held for a few days at the facility and recently resumed wherein he had 4 loose BM's yesterday. Patient did not have any abdominal pain. Enroute to the ER, patient received 1L normal saline with improvement in his BP. Vitals stable with borderline BP 93/57. Exam: lethargic, confused intermittently, oriented x 2, dry mucous membranes, PERRL, icteric sclera+, Neck supple, Chest b/l clear anteriorly, Heart S1S2 regular, Abd distended, soft, BS+, fluid thrill+, LE: 2+ pitting edema. Chronic buttock wound+. Labs: WBC 17, band 1, INR 2.08, Na 127, bicrb 19, BUN 36, creat 3.0 (baseline 0.6 1.0), lactic acid 4.8 --> 4.3, Ca 11, phosphorus 4.7, T. Bili 7.9, AST 452 , ALT 130, Alk phos 313, ammonia 10, albumin 2.0, lipase 63. UA pending. Corrected calcium is 12.6. CT abd/pelvis: no obstructive uropathy, bilateral nonobstructive renal calculi, hepatic lesions, large volume ascites. EKG: sinus rhythm, low voltage, Qtc 400. Assessment and plan: 1. Altered mental status, confusion - multifactorial 2. Metabolic encephalopathy 3. PHYLICIA 2/2 dehydration, poor PO intake 4. Hepatocellular carcinoma with worsening LFTs 5. Hypercalcemia of malignancy 6. Ascites, Rule out SBP 7. Chronic hypervolemic hyponatremia 8. Hypotension improved with fluids 9. 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 Chronic leukocytosis, rule out infection 11. Lactic acidosis - 23 hour observation on general medicine - Panculture - Obtain urinalysis to rule out UTI - Obtain CXR to rule out pneumonia - Diagnostic paracentesis performed in the ER, was a bloody tap, negative for SBP - Follow cultures, cytology - Monitor off antibiotics - Hold lasix, continue sodium tabs and fluid restriction of 1200 mls - IV albumin TID - Check urinalysis, urine lytes, serum and urine osmolality - Normal saline 1 bag overnight unable to give aggressive hydration due to third spacing with the massive ascites and LE edema. - Trend renal functions and lactic acid - Check bladder scan and rule out urinary obstruction, consider Lopez placement - Nephro consult - Endo consulted discussed with Dr. Best, will initiate IV pamidronate 60 mg IV infusion over 24 hours - check calcium levels in 6 hours - Therapeutic paracentesis possibly by IR in AM - Resume lactulose to titrate 2-3 BM's per day again this could cause volume depletion, hence will need to be carefully reinstated. - Unsure why he is not on rifaximin? - Fractionate bilirubin - Oncology consult (Dr. Sevilla) - Hold sorafenib for now - Wound consult for chronic buttock wound - Given renal failure, need to convert lovenox to IV heparin in the interim. Please start this in AM if his renal functions do not improve. We were unable to initiate this, as patient has only 2 IV lines is getting pamidronate infusion and IVF. - Pain management DVT ppx IV heparin. DNR/I (discussed with patient's family). Observation Initial Note - I have personally examined YOLANDA MCDOWELL on 08/01/17 at 0649. The disposition of YOLANDA MCDOWELL is uncertain at this time and before a determination can be made, he requires a period of observation for the following reasons [encephalopathy, PHYLICIA, hypercalcemia] The disposition of YOLANDA MCDOWELL is uncertain at this time and before a determination can be made, he requires a period of observation for the following reasons [encephalopathy, PHYLICIA, hypercalcemia] The disposition of YOLANDA MCDOWELL is uncertain at this time and before a determination can be made, he requires a period of observation for the following reasons [encephalopathy, PHYLICIA, hypercalcemia]
--- NOTE | 2017-07-31 22:04 | CT SCAN REPORT ---
EXAMINATION: CT ABDOMEN AND PELVIS WITHOUT CONTRAST CLINICAL INFORMATION: Acute renal failure. Assess for obstructive uropathy. COMPARISON: Abdominal MRI 05/15/2017. TECHNIQUE: Multidetector volumetric imaging was performed from the superior aspect of the liver through the pubic symphysis. Sagittal and coronal reformatted images were obtained on the technologist's workstation. DLP: 1724 mGy-cm FINDINGS: LUNG BASES: The visualized lung bases are unremarkable. PERITONEAL CAVITY: Large volume of ascites. LIVER, GALLBLADDER, AND BILIARY TREE: Numerous hepatic lesions are redemonstrated, replacing the majority of the hepatic parenchyma. Cholelithiasis versus hyperdense biliary sludge. No evidence of significant biliary ductal dilatation. PANCREAS: Unremarkable. SPLEEN: Unremarkable. ADRENAL GLANDS: Unremarkable. KIDNEYS AND URETERS: No hydronephrosis. There are a a few punctate nonobstructing calculi in the lower poles of the bilateral kidneys. No suspicious renal mass. BLADDER: Unremarkable. GASTROINTESTINAL TRACT: Bowel gas pattern is nonobstructive. No evidence of acute bowel pathology. Bowel surgical material in the right lower quadrant. The appendix is not visualized. ABDOMINAL WALL: Ascites tracks into the right inguinal canal. LYMPH NODES: No bulky adenopathy. VASCULAR: Minimal atherosclerotic calcification. PELVIC VISCERA: Ascites tracks into the pelvis. Prostate gland and seminal vesicles are unremarkable. OSSEOUS STRUCTURES: Multilevel lumbar Schmorl's nodes. No new osseous lesion demonstrated. There are subacute left rib fractures. IMPRESSION: 1. No evidence of obstructive uropathy. A couple bilateral nonobstructing tiny renal calculi. 2. Numerous hepatic lesions throughout the entirety of the liver, most consistent with malignancy. 3. Large volume of ascites.
[2017-08-01 00:42] VITALS: BP 90/54
[2017-08-01 07:11] VITALS: BP 90/54
--- NOTE | 2017-08-01 08:40 | PN- Housestaff ---
See Addendum Subjective Follow-up For: Hepatic encephalopathy with PHYLICIA Subjective: Patient admitted last night. AOx1 this morning, not answering questions. Review of Systems Constitutional: Reports: no symptoms. EENTM: Reports: no symptoms. Cardiovascular: Reports: no symptoms. Respiratory: Reports: no symptoms. Gastrointestinal: Reports: no symptoms. Genitourinary: Reports: no symptoms. Musculoskeletal: Reports: no symptoms. Skin: Reports: no symptoms. Neurological/Psychological: Reports: see HPI. Hematologic/Endocrine: Reports: no symptoms. Immunologic/Allergic: Reports: no symptoms. Objective Last 24 Hrs of Vital Signs/I&O Vital Signs Date Time Temp Pulse Resp B/P B/P Pulse O2 O2 Flow FiO2 Mean Ox Delivery Rate 08/01 0711 97.7 86 20 90/54 95 Room Air 08/01 0042 98.0 86 20 90/54 97 Room Air 07/31 2351 98.7 86 18 93/57 96 07/31 210 92 16 109/64 96 Room Air 07/31 2044 97.8 84 16 95/55 98 Room Air 07/31 2016 82 16 98/57 97 Room Air 07/31 2006 97.9 84 18 97/57 97 Room Air Intake & Output 08/01 1600 08/01 0800 08/01 0000 Intake Total 400 0 Output Total 0 Balance 400 0 Intake, IV 400 Intake, Oral 0 Number 1 Bowel Movements Output, Urine 0 Patient 99.79 kg 96.162 kg Weight Physical Exam General Appearance: Cooperative, No Acute Distress Skin: No Rashes, No Breakdown, No Significant Lesion HEENT: Atraumatic Cardiovascular: Regular Rate, Normal S1, Normal S2 Lungs: Clear to Auscultation Abdomen: distended, nontender Extremities: 3+ pitting edmea Current Medications: Current Medications Sig/[place] Start time Last Medication Dose Route Stop Time Status Admin Albumin Human 12.5 GM TID 08/01 1000 AC IV Albumin Human 12.5 GM ONCE ONE 07/31 2315 DC 08/01 IV 07/31 2316 0218 Heparin Sodium 5,000 UNIT Q8 08/01 0600 CAN (Porcine) SC Heparin Sodium/ 25,000 UNIT Q24H 08/01 0745 AC Dextrose IV Dextrose/Water 500 ML Heparin Sodium/ 25,000 UNIT Q24H 07/31 2330 DC Dextrose IV Dextrose/Water 500 ML Hydromorphone HCl 1 MG Q6-PRN PRN 07/31 2345 AC 08/01 IV 0220 Lactulose 20 GM TID 08/01 0100 AC PO Lactulose 20 GM DAILY PRN 07/31 2345 DC PO Lidocaine 0 .STK-MED ONE 07/31 2327 DC .ROUTE Montelukast Sodium 10 MG 08/01 AC PO Non-Formulary 0 SEE ADMIN CRITERIA 07/31 2315 DC Medication ANY Ondansetron HCl 4 MG Q8 PRN 07/31 234 AC PO Pamidronate Disodium 60 MG .Q24H 08/01 0130 AC 08/01 Sodium Chloride 1,000 ML IV 08/02 0129 0226 Senna/Docusate Sodium 2 TAB AT BEDTIME 08/01 2199 AC PO Sodium Chloride 1,000 MG TID 08/01 1000 AC PO Sodium Chloride 1 SPRAY Q4H PRN 07/31 2344 AC [place] Sodium Chloride 1,000 ML Q13H 07/31 2300 AC 08/01 IV 0218 Last 24 Hrs of Lab/Herber Results Last 24 Hrs of Labs/Mics: Laboratory Tests 08/01/17 0755: Calcium Pending 08/01/17 0755: Sodium Pending, Potassium Pending, Chloride Pending, Carbon Dioxide Pending, Anion Gap Pending, BUN Pending, Creatinine Pending, BUN/Creatinine Ratio Pending , Total Bilirubin Pending, Direct Bilirubin Pending, AST Pending, ALT Pending, Alkaline Phosphatase Pending, Total Protein Pending, Albumin Pending, Triglycerides Pending, Cholesterol Pending, LDL Cholesterol, Calc Pending, HDL Cholesterol Pending, Cholesterol/HDL Ratio Pending, PT Pending, INR Pending, CBC w Diff Pending, WBC Pending, RBC Pending, Hgb Pending, Hct Pending, MCV Pending, MCH Pending, MCHC Pending, RDW Pending, Plt Count Pending, MPV Pending 07/31/172344: Fluid WBC 200 H, Fld Mesothelial Cells 33, Fld Total RBCs Counted 05549 H 07/31/172344: Lymphocytes 12, % Normal PMNs 55, Fluid Glucose 79, Fluid Total Protein < 2.0, Fluid Albumin < 1.0, Fluid LDH 310 07/31/172311: Lactic Acid 4.3 H 07/31/172004: Anion Gap 9, Estimated GFR 23 L, BUN/Creatinine Ratio 12.0, Glucose 82, Lactic Acid 4.8 H, Calcium 11.0 H, Phosphorus 4.7 H, Magnesium 2.1, Total Bilirubin 7.9 H, AST 452 H, ALT 130 H, Alkaline Phosphatase 313 H, Ammonia 10, Total Protein 6.1 L, Albumin 2.0 L, Globulin 4.1, Albumin/Globulin Ratio 0.5 L, Lipase 63, PT 21.7 H, INR 2.08 H, APTT 69 H, CBC w Diff MAN DIFF ORDERED, RBC 4.82, MCV 92.1, MCH 29.1, MCHC 31.6 L, RDW 22.0 H, MPV 8.5, Gran % 68.5, Lymphocytes % 21.0, Monocytes % 9.3, Eosinophils % 0.8, Basophils % 0.4, Absolute Granulocytes 11.7 H, Segmented Neutrophils 79 H, Band Neutrophils 1, Absolute Lymphocytes 3.6 H, Lymphocytes 13 L, Monocytes 7, Absolute Monocytes 1.6 H, Absolute Eosinophils 0.1, Absolute Basophils 0.1, Nucleated RBCs 1 H, Platelet Estimate VERIFIED BY SMEAR, Poikilocytosis FEW, Anisocytosis 1+, Target Cells FEW, Deanna Cells FEW, Fld Total RBCs Counted 100 Microbiology 07/31 2344 BODY FLUID: Body Fluid Culture - RECD 07/31 2344 BODY FLUID: Gram Stain - RECD 07/31 2004 BLOOD: Blood Culture - RECD 08/01 1999 BLOOD: Blood Culture - RECD Assessment/Plan Assessment: 41 yo M with h/o hepatocellular carcinoma on sorafinib, requiring weekly therapeutic paracentesis, hyponatremia, recently admitted to [facility] (Jul 2017) for hepatic encephalopathy, hypercalcemia and 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 Problem list: 1. Metabolic encephalopathy 2. Acute kidney injury 3. Hepatocellular carcinoma 4. Hypercalcemia of malignancy 5. IVC thrombus 6. Lactic acidosis 7. Sacral decubitus ulcer #Metabolic encephalopathy: Patient presents with altered mental status in setting of hyperbilirubinemia and normal ammonia. He has a history of hepatocellular carcinoma is currently being treated with sorafenib by oncology. There was initial concern for stroke. CT head is negative. Most likely secondary to metabolic cause. Diagnostic paracentesis revealed no SBP, SAAG elevated indicating portal hypertension. -Trend LFTs -Appreciate oncology recommendations: Hold sorafenib -Large-volume paracentesis today with IR if possible -Consider MRI head tomorrow -Follow cultures #Acute kidney injury: FENa 0.1, urine random sodium 12, indicating likely prerenal. Most concerning would be hepatorenal syndrome. Creatinine today slightly worse. 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 -Appreciate endocrinology recommendations -BEP, calcium, albumin every 6 hours -Pamidronate: May Need to stop this if kidney function continues to worsen #IVC thrombus: Patient has history of thrombosis and is on enoxaparin for prophylaxis. -Heparin drip -Discontinue if doing paracentesis #Lactic acidosis: Patient does not seem infected at this time. -Trend lactic acid #Sacral decubitus ulcer: Noted on admission. -Wound consult #Chronic medical problems: -Continue other home medications DVT prophylaxis with heparin Regular diet DNR/DNI Problem List: 1. Hepatic encephalopathy Pain Ratin Pain Location: no Pain Goal: Remain pain free Pain Plan: see a/p Tomorrow's Labs & Rationales: cbc, bep lft
[2017-08-01 09:36] LABS: ABSOLUTE BASOPHIL COUNT 0.1 /CUMM (0.0-0.2); ABSOLUTE EOSINOPHIL COUNT 0.1 /CUMM (0.0-0.7); ABSOLUTE GRANULOCYTE CT 10.2 /CUMM (1.4-6.5); ABSOLUTE LYMPH COUNT 4.4 /CUMM (1.2-3.4); ABSOLUTE MONOCYTE COUNT 1.3 /CUMM (0.10-0.60); BASOPHIL % 0.5 % (0.0-2.0); EOSINOPHIL % 0.5 % (0-5); GRANULOCYTE % 63.8 % (42.2-75.2); HEMATOCRIT 42.5 % (42-52); MEAN CORPUSCULAR HGB 29.7 PG (27.0-31.0); MEAN CORPUSCULAR HGB CONC 32.7 G/DL (33.0-37.0); MEAN CORPUSCULAR VOLUME 91.1 FL (80.0-94.0); MEAN PLATELET VOLUME 9.1 FL (7.4-10.4); PLATELET COUNT 262 /CUMM (130-400); RED BLOOD CELL CT 4.66 /CUMM (4.70-6.10)
[2017-08-01 09:42] LABS: PT 21.9 SEC (9.4-12.5)
--- NOTE | 2017-08-01 09:55 | CT SCAN REPORT ---
EXAMINATION: CT HEAD WITHOUT CONTRAST CLINICAL INFORMATION: 41-year-old man with left arm weakness and confusion. COMPARISON: 07/07/[address] TECHNIQUE: Contiguous axial imaging was performed from the skull base to vertex without intravenous administration of contrast. DLP: 598 mGy-cm FINDINGS: There is no evidence of acute intracranial hemorrhage or territorial infarction. No abnormal mass effect or midline shift is seen. Tang to white matter differentiation is well preserved. No extra-axial fluid collections are identified. The ventricles are normal in size. There is no abnormal attenuation within the brain parenchyma. The osseous structures and soft tissues are normal. The mastoid air cells and visualized portions of the paranasal sinuses are well aerated. IMPRESSION: No acute intracranial pathology.
--- NOTE | 2017-08-01 10:08 | RADIOLOGY REPORT ---
EXAMINATION: XR PORTABLE CHEST CLINICAL INFORMATION: 41-year-old man with cough. COMPARISON: 07/13/2017 chest radiograph TECHNIQUE: Portable frontal view of the chest was obtained. FINDINGS: Lung volumes are extremely low with partial elevation of the right hemidiaphragm. No focal consolidation or overt edema is appreciated. Heart size is approximately stable. There are no pleural effusions. IMPRESSION: Limited by low lung volumes. No acute cardiopulmonary process is appreciated.
--- NOTE | 2017-08-01 10:21 | Event Note ---
Event Note Event Note: 9:30 AM: Nurse called me that pt is looking more confused. On my exam he was oriented to place. His Left arm was weak and he was not able to hold it up. Clip On Sunglasses Inspector strength was also weak. Rapid response and stroke alert was called for suspicion of stroke. His blood pressure was on the lower side but stable. Blood Sugar was 67. Other vitals were stable. One amp of dextrose was given. Stat CT head was ordered. This Patient Has History of Hepatocellular Carcinoma and Cirrhosis 2/2 to [facility] with Multiple Previous Admissions Due To Metabolic Encephalopathy. 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 He is being admitted again for possible metabolic encephalopathy. My suspicion is his symptoms are mostly related to his metabolic encephalopathy and chance of having A stroke is less. We will do stat CT head to rule out any acute intracranial pathology. We will restart his lactulose. He was also started on rifaximin. GI was called for consult.
--- NOTE | 2017-08-01 10:22 | Cons- Endocrinology ---
General Information and HPI Consulting Request Date of Consult: 08/01/17 Requested By: medfical team Reason for Consult: hypercalcemia Source of Information: patient, old records Exam Limitations: unable to give history History of Present Illness: This 41-year-old male has a known history of liver failure due to hepatocellular carcinoma diagnosed in April 2017. He was brought to the hospital by his family because of deterioration in his mental status. He was noted that his urine output has also gone down and his urine is very dark.. He has been undergoing treatment as an outpatient including paracentesis, lactulose, and chemotherapy.. He has episodes of vomiting at home. The patient has a known history of hypercalcemia which has been found to be due to his tumor. The tumor has been found to be producing PTH rp. . During his last admission he received an infusion of pamidronate. He now presents with acute renal failure and evidence of hypercalcemia. Yesterday at 8 PM the patient's creatinine was 3.0 sodium 127 glucose 82, lactic acid 4.8 and CO2 19. His calcium was 11.0 with an albumin of 2.0. His corrected calcium was 12.6. Liver function tests were extremely high with alk phos 313 SGOT 452 SGPT 130 We discussed last night placing the patient very carefully on pamidronate to be infused slowly over 24 hours to help bring his calcium down. Allergies/Medications Allergies: Coded Allergies: NSAIDS (Non-Steroidal Anti-Inflamma (PER PT CANT TAKE DUE TO LIVER 05/27/17) codeine (PER PT VERY RAPID HEART RATE 05/27/17) Home Med List: Acetaminophen (Acephen) 650 MG SUPP.RECT 1 SUPP ME Q4H PRN PAIN/TEMP>100 ( Reported) Acetaminophen (Tylenol) 325 MG TABLET 2 TAB PO Q4H PRN PAIN/TEMP>100 ( Reported) Bisacodyl (Dulcolax) 10 MG SUPP.RECT 1 SUP RC AD PRN CONSTIPATION (Reported) Enoxaparin Sodium (Lovenox) 120 MG/0.8 ML SYRINGE 1 INJ SC BID CLOT . Hydromorphone HCl (Dilaudid) 2 MG TABLET 1 TAB PO Q6H PRN PAIN (Reported) Hydromorphone HCl 2 MG TABLET 1 TAB PO Q6H PRN MODERATE PAIN (Reported) Hydromorphone HCl (Dilaudid) 1 MG/ML LIQUID 1-2 MG SL Q4P PRN PAIN Lactulose 10 GRAM/15 ML SOLUTION 30 ML PO TID ENCEPHALOPATHY (Reported) Lactulose 10 GRAM/15 ML SOLUTION 30 ML PO AD PRN <2BM/DAY (Reported) Lactulose 10 GRAM/15 ML SOLUTION 30 ML PO BID PRN AMMONIA LEVEL (Reported) Lidocaine 5 % ADH..PATCH 2 PAT TOP DAILY PAIN (Reported) Lorazepam (LORazepam) 2 MG/ML VIAL 0.5 MG SL Q4P PRN ANXIETY/PAIN Magnesium Hydroxide (Milk Of Magnesia) 400 MG/5 ML ORAL.SUSP 30 ML PO DAILY PRN CONSTIPATION (Reported) Magnesium Oxide (Magnesium) 400 MG CAPSULE 1 CAP PO DAILY SUPPLEMENT ( Reported) Montelukast Sodium 10 MG TABLET 1 TAB PO DAILY allergies/resp. (Reported) Na Phos,M-B/Na Phos,Di-Ba (Enema) 19 GRAM-7 GRAM/118 ML ENEMA 1 E ME DAILY PRN CONSTIPATION (Reported) Ondansetron HCl (Zofran) 4 MG TABLET 1 TAB PO Q8P PRN NAUSEA/VOMITING ( Reported) Scopolamine (Transderm-Scop) 1 MG/3 DAY PATCH.TD.3 1 PATCH TD Q72 PRN SECREATIONS Sennosides/Docusate Sodium (Senna Plus Tablet) 8.6 MG-50 MG TABLET 2 TAB PO QHS CONSTIPATION (Reported) Sodium Chloride 1 GRAM TABLET 1 TAB PO TID SUPPLEMENT (Reported) Sodium Chloride (Saline Nasal [place]) 0.65 % SPRAY 1 SPRAY NASB Q4H PRN CONGESTION (Reported) Sorafenib Tosylate (Nexavar) 200 MG TABLET 1 TAB PO DAILY LIVER MASS ( Reported) Review of Systems Review of Systems Constitutional: Reports: malaise. Comments Patient is somewhat confused Past History Travel History Traveled to [place] past 21 day No Medical History Blood Transfusion Hx: No Neurological: intermittent confusion- hyperCa2+, PSE, HCC EENT: NONE Cardiovascular: hyperlipidemia Respiratory: NONE Gastrointestinal: NONE Hepatic: cirrhosis, hepatic encephalopathy, elevated enzymes multifocal HCC- unresectable, not cndidate for RFA- on Sorafenib Renal: resolved PHYLICIA- 04/2017 Musculoskeletal: chronic back pain, osteopenia Psychiatric: NONE Endocrine: hypoglycemia, osteopenia hyperCa2+ due to malignancy Blood Disorders: coagulopathy (cirrhotic/HCC) 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 Acute Rehab Who Do You Live With? parent, [facility] after last discharge Services at Home: None Primary Language: Bengali Smoking Status: Never Smoked Living Will? unknown Power of Hvac Residential Service Technician/HCP? unknown Functional Ability ADLs Unknown: dressing, eating, toileting, bathing. Ambulation: unknown IADLs Unknown: shopping, housework, finances, food prep, telephone, transportation, medication admin. Exam & Diagnostic Data Last 24 Hrs of Vital Signs/I&O Vital Signs Date Time Temp Pulse Resp B/P B/P Pulse O2 O2 Flow FiO2 Mean Ox Delivery Rate 08/03 0627 97.4 83 16 94/52 94 Room Air 08/03 0000 95 Room Air 08/02 2340 18 08/02 2256 97.7 74 12 91/50 95 Room Air 08/02 1507 97.8 83 20 100/62 98 Intake & Output 08/03 1600 08/03 0800 08/03 0000 Intake Total 50 0 Output Total 400 Balance -350 0 Intake, Oral 50 0 Number 3 Bowel Movements Output, Urine 400 Physical Exam General Appearance: awake, lethargic Head: normal appearance Neck: normal inspection Respiratory: normal breath sounds Cardiovascular: regular rate/rhythm Gastrointestinal: distention Extremities: swelling Assessment/Plan Assessment/Plan This patient's hypercalcemia is related to his hepatocellular carcinoma with production of PTH rp. He had hypercalcemia on his last admission and is treated with pamidronate at that time. However his renal function has now deteriorated and there is evidence of acute kidney injury. His liver function has become worse. The findings are consistent with hepatorenal syndrome. With regard to the patient's calcium a very slow drip of pamidronate was started last night. Thiis morning his serum calcium has just been added to his blood work. His creatinine however has gone up to 3.3. Suggest check the patient's BUN/creatinine electrolytes calcium and albumin every 6 hours. If his renal failure continues to get worse we will need to stop the pamidronate. Oncology consult needs to be obtained. In addition the patient needs to be treated for hepato-renal syndrome. Suggest renal consult and GI consult if the patient is to be treated aggressively. Overall his prognosis is very poor. Consult Acknowledgment - Thank you for your consult request.
--- NOTE | 2017-08-01 11:23 | Cons- Gastroenterology ---
General Information and HPI Consulting Request Date of Consult: 08/01/17 Requested By: Aayush POLANCO,Aarti Reason for Consult: Cirrhosis, hepatocellular cancer, PHYLICIA rule out hepatorenal syndrome. Source of Information: old records Exam Limitations: unable to give history, clinical condition History of Present Illness: Mr. 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 for reports of an altered mental status. He was admitted to [facility] 05/09/17 to , for altered mental status, elevated LFTs, cirrhosis with MELD-Na 27 & hypercalcemia (serum calcium-17.8). He was seen by oncology and endocrine and his hypercalcemia was felt to be a humeral effect of widespread malignancy noted on an MRI which showed an abnormal filling defect within the intrahepatic IVC, extending up to the right atrium, highly suspicious for nonocclusive tumor thrombus along with multiple large confluent suspicious enhancing masses throughout the right and left lobes of the liver. A liver biopsy was not obtained, but his increased AFP was essentially diagnositc and he was started on sorefenib by oncology. Allergies/Medications Allergies: Coded Allergies: NSAIDS (Non-Steroidal Anti-Inflamma (PER PT CANT TAKE DUE TO LIVER 05/27/17) codeine (PER PT VERY RAPID HEART RATE 05/27/17) Home Med List: Acetaminophen (Acephen) 650 MG SUPP.RECT 1 SUPP NH Q4H PRN PAIN/TEMP>100 ( Reported) Acetaminophen (Tylenol) 325 MG TABLET 2 TAB PO Q4H PRN PAIN/TEMP>100 ( Reported) Bisacodyl (Dulcolax) 10 MG SUPP.RECT 1 SUP RC AD PRN CONSTIPATION (Reported) Enoxaparin Sodium (Lovenox) 120 MG/0.8 ML SYRINGE 1 INJ SC BID CLOT . Hydromorphone HCl (Dilaudid) 2 MG TABLET 1 TAB PO Q6H PRN PAIN (Reported) Hydromorphone HCl 2 MG TABLET 1 TAB PO Q6H PRN MODERATE PAIN (Reported) Lactulose 10 GRAM/15 ML SOLUTION 30 ML PO TID ENCEPHALOPATHY (Reported) Lactulose 10 GRAM/15 ML SOLUTION 30 ML PO AD PRN <2BM/DAY (Reported) Lactulose 10 GRAM/15 ML SOLUTION 30 ML PO BID PRN AMMONIA LEVEL (Reported) Lidocaine 5 % ADH..PATCH 2 PAT TOP DAILY PAIN (Reported) Magnesium Hydroxide (Milk Of Magnesia) 400 MG/5 ML ORAL.SUSP 30 ML PO DAILY PRN CONSTIPATION (Reported) Magnesium Oxide (Magnesium) 400 MG CAPSULE 1 CAP PO DAILY SUPPLEMENT ( Reported) Montelukast Sodium 10 MG TABLET 1 TAB PO DAILY allergies/resp. (Reported) Na Phos,M-B/Na Phos,Di-Ba (Enema) 19 GRAM-7 GRAM/118 ML ENEMA 1 E NH DAILY PRN CONSTIPATION (Reported) Ondansetron HCl (Zofran) 4 MG TABLET 1 TAB PO Q8P PRN NAUSEA/VOMITING ( Reported) Sennosides/Docusate Sodium (Senna Plus Tablet) 8.6 MG-50 MG TABLET 2 TAB PO QHS CONSTIPATION (Reported) Sodium Chloride 1 GRAM TABLET 1 TAB PO TID SUPPLEMENT (Reported) Sodium Chloride (Saline Nasal Topaz) 0.65 % SPRAY 1 SPRAY NASB Q4H PRN CONGESTION (Reported) Sorafenib Tosylate (Nexavar) 200 MG TABLET 1 TAB PO DAILY LIVER MASS ( Reported) Current Medications: Current Medications Sig/[place] Start time Last Medication Dose Route Stop Time Status Admin Albumin Human 12.5 GM TID 08/01 1000 AC 08/01 IV 1026 Albumin Human 12.5 GM ONCE ONE 07/31 2315 DC 08/01 IV 07/31 2316 0218 Dextrose 25 GM ONCE ONE 08/01 0945 DC / IV / 0946 0955 Heparin Sodium 5,000 UNIT Q8 08/01 0600 CAN (Porcine) SC Heparin Sodium/ 25,000 UNIT Q24H 08/01 0745 DC Dextrose IV Dextrose/Water 500 ML Heparin Sodium/ 25,000 UNIT Q24H 07/31 2330 DC Dextrose IV Dextrose/Water 500 ML Hydromorphone HCl 1 MG Q6-PRN PRN 07/31 2345 DC 08/01 IV 0220 Lactulose 20 GM TID 08/01 1000 AC / PO 1026 Lactulose 20 GM TID 08/01 0100 DC PO Lactulose 20 GM DAILY PRN 07/31 2345 DC PO Lidocaine 0 .STK-MED ONE 07/31 2327 DC .ROUTE Montelukast Sodium 10 MG 08/01 AC PO Non-Formulary 0 SEE ADMIN CRITERIA 07/31 2315 DC Medication ANY Ondansetron HCl 4 MG Q8 PRN 07/31 2345 AC PO Pamidronate Disodium 60 MG ONE ONE 08/01 1000 CAN IV 08/01 1001 Pamidronate Disodium 60 MG .Q24H 08/01 0130 AC 08/01 Sodium Chloride 1,000 ML IV 08/02 0129 0226 Rifaximin 550 MG BID 08/01 1000 AC 08/01 PO 1027 Senna/Docusate Sodium 2 TAB AT BEDTIME 08/01 2200 AC PO Sodium Chloride 1,000 MG TID 08/01 1000 AC 08/01 PO 1027 Sodium Chloride 1 SPRAY Q4H PRN 07/31 2345 AC [place] Sodium Chloride 1,000 ML Q13H 07/31 2300 AC 08/01 IV 0218 Past History Travel History Traveled to [place] past 21 day No Medical History Blood Transfusion Hx: No Neurological: intermittent confusion- hyperCa2+, PSE, HCC EENT: NONE Cardiovascular: hyperlipidemia Respiratory: NONE Gastrointestinal: NONE Hepatic: cirrhosis, hepatic encephalopathy, elevated enzymes multifocal HCC- unresectable, not cndidate for RFA- on Sorafenib Renal: resolved PHYLICIA- 04/2017 Musculoskeletal: chronic back pain, osteopenia Psychiatric: NONE Endocrine: hypoglycemia, osteopenia hyperCa2+ due to malignancy Blood Disorders: coagulopathy (cirrhotic/HCC) Cancer(s): LIVER CA/HCC 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 Acute Rehab Who Do You Live With? parent, [facility] after last discharge Services at Home: None Primary Language: Thai Smoking Status: Never Smoked Living Will? unknown Power of Chip Mucker/HCP? unknown Functional Ability ADLs Unknown: dressing, eating, toileting, bathing. Ambulation: unknown IADLs Unknown: shopping, housework, finances, food prep, telephone, transportation, medication admin. Exam & Diagnostic Data Vital Signs and I&O Vital Signs Date Time Temp Pulse Resp B/P B/P Pulse O2 O2 Flow FiO2 Mean Ox Delivery Rate 08/01 0711 97.7 86 20 90/54 95 Room Air 08/01 0042 98.0 86 20 90/54 97 Room Air 07/31 2351 98.7 86 18 93/57 96 07/31 2106 92 16 109/64 96 Room Air 07/31 2044 97.8 84 16 95/55 98 Room Air 07/31 2016 82 16 98/57 97 Room Air 07/31 2006 97.9 84 18 97/57 97 Room Air Intake & Output 08/010 07/30 0400 Intake Total 400 0 Output Total 0 Balance 400 0 Intake, IV 400 Intake, Oral 0 Number 1 Bowel Movements Output, Urine 0 Patient 220 lb Weight Results Pertinent Lab Results: Laboratory Tests 08/01 08/01 08/01 0941 0757 0752 Chemistry Sodium (137 - 145 mmol/L) 130 L Potassium (3.5 - 5.1 mmol/L) 5.6 H Chloride (98 - 107 mmol/L) 101 Carbon Dioxide (22 - 30 mmol/L) 17 L Anion Gap (5 - 16) 12 BUN (9 - 20 mg/dL) 37 H Creatinine (0.7 - 1.2 mg/dL) 3.3 H Estimated GFR (>60 ml/min) 21 L BUN/Creatinine Ratio (7 - 25 %) 11.2 Serum Osmolality (285 - 295 MOSM/KG) 283 L Calcium (8.4 - 10.2 mg/dL) 10.8 H Total Bilirubin (0.2 - 1.3 mg/dL) 8.2 H Direct Bilirubin (< 0.4 mg/dL) 6.9 H AST (17 - 59 U/L) 362 H ALT (21 - 72 U/L) 115 H Alkaline Phosphatase (< 127 U/L) 295 H Total Protein (6.3 - 8.2 g/dL) 6.3 Albumin (3.5 - 5.0 g/dL) 2.1 L Triglycerides (<150 mg/dL) 98 Cholesterol (< 200 MG/DL) 116 LDL Cholesterol, Calc (65 - 129 mg/dL) 85 HDL Cholesterol (40 - 60 mg/dL) 12 L Cholesterol/HDL Ratio (0.00 - 4.88 %) 10 H Coagulation PT (9.4 - 12.5 SEC) 21.9 H INR (0.90 - 1.17) 2.00 H Hematology CBC w Diff NO MAN DIFF REQ WBC (4.8 - 10.8 /CUMM) 16.0 H RBC (4.70 - 6.10 /CUMM) 4.66 L Hgb (14.0 - 18.0 G/DL) 13.9 L Hct (42 - 52 %) 42.5 MCV (80.0 - 94.0 FL) 91.1 MCH (27.0 - 31.0 PG) 29.7 MCHC (33.0 - 37.0 G/DL) 32.7 L RDW (11.5 - 14.5 %) 22.0 H Plt Count (130 - 400 /CUMM) 262 MPV (7.4 - 10.4 FL) 9.1 Gran % (42.2 - 75.2 %) 63.8 Lymphocytes % (20.5 - 51.1 %) 27.2 Monocytes % (1.7 - 9.3 %) 8.0 Eosinophils % (0 - 5 %) 0.5 Basophils % (0.0 - 2.0 %) 0.5 Absolute Granulocytes (1.4 - 6.5 /CUMM) 10.2 H Absolute Lymphocytes (1.2 - 3.4 /CUMM) 4.4 H Absolute Monocytes (0.10 - 0.60 /CUMM) 1.3 H Absolute Eosinophils (0.0 - 0.7 /CUMM) 0.1 Absolute Basophils (0.0 - 0.2 /CUMM) 0.1 Urines Urine Osmolality (300 - 1000 MOSM/KG) 351 Ur Random Creatinine (mg/dL) 216.8 Ur Random Sodium (30 - 90 mmol/L) 12 L Ur Random Potassium (mmol/L) 45.4 Fraction Sodium Excret (<1% %) 0.1 07/31 07/31 07/31 2345 2345 2312 Chemistry Lactic Acid (0.7 - 2.1 mmol/L) 4.3 H Hematology Lymphocytes (%) 12 % Normal PMNs (%) 55 Other Body Source Fluid WBC (0 - 5 /CUMM) 200 H Fld Mesothelial Cells (%) 33 Fld Total RBCs Counted (0 /CUMM) 00747 H Fluid Glucose (mg/dL) 79 Fluid Total Protein (g/dL) < 2.0 Fluid Albumin (g/dL) < 1.0 Fluid LDH (U/L) 310 07/31 2004 Chemistry Sodium (137 - 145 mmol/L) 127 L Potassium (3.5 - 5.1 mmol/L) 5.1 Chloride (98 - 107 mmol/L) 99 Carbon Dioxide (22 - 30 mmol/L) 19 L Anion Gap (5 - 16) 9 BUN (9 - 20 mg/dL) 36 H Creatinine (0.7 - 1.2 mg/dL) 3.0 H Estimated GFR (>60 ml/min) 23 L BUN/Creatinine Ratio (7 - 25 %) 12.0 Glucose (65 - 99 mg/dL) 82 Lactic Acid (0.7 - 2.1 mmol/L) 4.8 H Calcium (8.4 - 10.2 mg/dL) 11.0 H Phosphorus (2.5 - 4.5 mg/dL) 4.7 H Magnesium (1.6 - 2.3 mg/dL) 2.1 Total Bilirubin (0.2 - 1.3 mg/dL) 7.9 H AST (17 - 59 U/L) 452 H ALT (21 - 72 U/L) 130 H Alkaline Phosphatase (< 127 U/L) 313 H Ammonia (9 - 30 umol/L) 10 Total Protein (6.3 - 8.2 g/dL) 6.1 L Albumin (3.5 - 5.0 g/dL) 2.0 L Globulin (1.9 - 4.2 gm/dL) 4.1 Albumin/Globulin Ratio (1.1 - 2.2 %) 0.5 L Lipase (23 - 300 U/L) 63 Coagulation PT (9.4 - 12.5 SEC) 21.7 H INR (0.90 - 1.17) 2.08 H APTT (25 - 37 SEC) 69 H Hematology CBC w Diff MAN DIFF ORDERED WBC (4.8 - 10.8 /CUMM) 17.0 H RBC (4.70 - 6.10 /CUMM) 4.82 Hgb (14.0 - 18.0 G/DL) 14.1 Hct (42 - 52 %) 44.4 MCV (80.0 - 94.0 FL) 92.1 MCH (27.0 - 31.0 PG) 29.1 MCHC (33.0 - 37.0 G/DL) 31.6 L RDW (11.5 - 14.5 %) 22.0 H Plt Count (130 - 400 /CUMM) 294 MPV (7.4 - 10.4 FL) 8.5 Gran % (42.2 - 75.2 %) 68.5 Lymphocytes % (20.5 - 51.1 %) 21.0 Monocytes % (1.7 - 9.3 %) 9.3 Eosinophils % (0 - 5 %) 0.8 Basophils % (0.0 - 2.0 %) 0.4 Absolute Granulocytes (1.4 - 6.5 /CUMM) 11.7 H Segmented Neutrophils (42.2 - 75.2 %) 79 H Band Neutrophils (0.0 - 5.0 %) 1 Absolute Lymphocytes (1.2 - 3.4 /CUMM) 3.6 H Lymphocytes (20.5 - 51.1 %) 13 L Monocytes (1.7 - 9.3 %) 7 Absolute Monocytes (0.10 - 0.60 /CUMM) 1.6 H Absolute Eosinophils (0.0 - 0.7 /CUMM) 0.1 Absolute Basophils (0.0 - 0.2 /CUMM) 0.1 Nucleated RBCs (0.0 - 0.0 /100WBC) 1 H Platelet Estimate (ADEQUATE) VERIFIED BY SMEAR Poikilocytosis FEW Anisocytosis 1+ Target Cells FEW Deanna Cells FEW Other Body Source Fld Total RBCs Counted (%) 100 Imaging/Other Studies: SERVICE DATE: 07/26/17 EXAM TYPE: US - US-PARACENTESIS EXAMINATION: PARACENTESIS CLINICAL INFORMATION: Ascites COMPARISON: Several prior paracenteses, the most recent 07/12/2017 TECHNIQUE: Indirect ultrasound guidance using a 6 [place] Sepe-G-Ynuqhlqq closed needle/catheter system FINDINGS: Informed consent was obtained from the patient prior to the procedure. During this process, the procedure alternatives were explained, along with the intended outcome and benefits. The risks of the procedure, as well as the risk of not doing the procedure, was discussed. The patient was given the opportunity to ask questions regarding the procedure and appeared competent to make medical decisions. A signed consent form which documents this discussion was placed in the medical record. Ultrasound evaluation of the abdomen for ascites was performed. Moderate amount of ascites is noted in the right lower quadrant. The site was marked. A timeout procedure was performed. The area was prepped and draped in usual sterile fashion. Using standard interventional and sterile techniques, lidocaine was used to anesthetize the region. A 6 [place] Kekt-F-Hwdvvnln closed needle/catheter system was introduced into the right lower quadrant using standard safety needle technique. Approximately 10.5 L of yellow fluid was removed into the Vacutainer bottles. The catheter was then removed. Good hemostasis was achieved. Dermabond was placed. The patient demonstrated immediate symptomatic relief. The patient tolerated the procedure well. The patient was discharged from the department in stable condition. COMPLICATIONS: None. IMPRESSION: Successful ultrasound-guided paracentesis yielding 10.5 L of fluid. SERVICE DATE: 07/31/17 EXAM TYPE: CAT - CT ABD & PELVIS W/O IV CONTRAS EXAMINATION: CT ABDOMEN AND PELVIS WITHOUT CONTRAST CLINICAL INFORMATION: Acute renal failure. Assess for obstructive uropathy. COMPARISON: Abdominal MRI 05/15/2017. TECHNIQUE: Multidetector volumetric imaging was performed from the superior aspect of the liver through the pubic symphysis. Sagittal and coronal reformatted images were obtained on the technologist's workstation. DLP: 1724 mGy-cm FINDINGS: LUNG BASES: The visualized lung bases are unremarkable. PERITONEAL CAVITY: Large volume of ascites. LIVER, GALLBLADDER, AND BILIARY TREE: Numerous hepatic lesions are redemonstrated, replacing the majority of the hepatic parenchyma. Cholelithiasis versus hyperdense biliary sludge. No evidence of significant biliary ductal dilatation. PANCREAS: Unremarkable. SPLEEN: Unremarkable. ADRENAL GLANDS: Unremarkable. KIDNEYS AND URETERS: No hydronephrosis. There are a a few punctate nonobstructing calculi in the lower poles of the bilateral kidneys. No suspicious renal mass. BLADDER: Unremarkable. GASTROINTESTINAL TRACT: Bowel gas pattern is nonobstructive. No evidence of acute bowel pathology. Bowel surgical material in the right lower quadrant. The appendix is not visualized. ABDOMINAL WALL: Ascites tracks into the right inguinal canal. LYMPH NODES: No bulky adenopathy. VASCULAR: Minimal atherosclerotic calcification. PELVIC VISCERA: Ascites tracks into the pelvis. Prostate gland and seminal vesicles are unremarkable. OSSEOUS STRUCTURES: Multilevel lumbar Schmorl's nodes. No new osseous lesion demonstrated. There are subacute left rib fractures. IMPRESSION: 1. No evidence of obstructive uropathy. A couple bilateral nonobstructing tiny renal calculi. 2. Numerous hepatic lesions throughout the entirety of the liver, most consistent with malignancy. 3. Large volume of ascites. SERVICE DATE: 08/01/17 EXAM TYPE: CAT - CT HEAD WO IV CONTRAST EXAMINATION: CT HEAD WITHOUT CONTRAST CLINICAL INFORMATION: 41-year-old man with left arm weakness and confusion. COMPARISON: 07/07/[address] TECHNIQUE: Contiguous axial imaging was performed from the skull base to vertex without intravenous administration of contrast. DLP: 598 mGy-cm FINDINGS: There is no evidence of acute intracranial hemorrhage or territorial infarction. No abnormal mass effect or midline shift is seen. Tang to white matter differentiation is well preserved. No extra-axial fluid collections are identified. The ventricles are normal in size. There is no abnormal attenuation within the brain parenchyma. The osseous structures and soft tissues are normal. The mastoid air cells and visualized portions of the paranasal sinuses are well aerated. IMPRESSION: No acute intracranial pathology. Assessment/Plan Consult Acknowledgment - Thank you for your consult request.
--- NOTE | 2017-08-01 12:51 | Cons- Nephrology ---
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 The patient was most recently admitted to [facility] 07/06 until 07/15 for altered mental status due to hepatic encephalopathy. Hospital's edition was complicated by hypercalcemia to 17 for which she was treated with IV bisphosphonate. He was placed on 1200cc/day fluid restriction and salt tablets for hyponatremia (Nephrology not involved). He was continued on lovenox for IVC thrombus. Since discharge, the patient underwent an LVP on 07/26 - 10.5L removed. Did not mention anything about hemodynamic instability. He now comes in again with altered mental status. He is not oriented and unable to give any further history. Denies abd pain. On Presentation, blood pressure 97/57 - afebrile. Labs notable for SCr 3.0, WBC 17.0, Hg 14.1, Na 127, lactate 4.8, Ca 11.0 with albumin 2.0, T bili 8, ammonia 10, INR 2.08. Started on IV albumin, IVF (2L thus far of NS - on 75cc/hr), IV pamidronate. Diagnostic paracentesis with neg gram stain and 200 WBC (37,[address] imaging without hydro; numerous hepatic lesions located throughout the entirety of the liver. Allergies/Medications Allergies: Coded Allergies: NSAIDS (Non-Steroidal Anti-Inflamma (PER PT CANT TAKE DUE TO LIVER 05/27/17) codeine (PER PT VERY RAPID HEART RATE 05/27/17) Home Med List: Acetaminophen (Acephen) 650 MG SUPP.RECT 1 SUPP WV Q4H PRN PAIN/TEMP>100 ( Reported) Acetaminophen (Tylenol) 325 MG TABLET 2 TAB PO Q4H PRN PAIN/TEMP>100 ( Reported) Bisacodyl (Dulcolax) 10 MG SUPP.RECT 1 SUP RC AD PRN CONSTIPATION (Reported) Enoxaparin Sodium (Lovenox) 120 MG/0.8 ML SYRINGE 1 INJ SC BID CLOT . Hydromorphone HCl (Dilaudid) 2 MG TABLET 1 TAB PO Q6H PRN PAIN (Reported) Hydromorphone HCl 2 MG TABLET 1 TAB PO Q6H PRN MODERATE PAIN (Reported) Lactulose 10 GRAM/15 ML SOLUTION 30 ML PO TID ENCEPHALOPATHY (Reported) Lactulose 10 GRAM/15 ML SOLUTION 30 ML PO AD PRN <2BM/DAY (Reported) Lactulose 10 GRAM/15 ML SOLUTION 30 ML PO BID PRN AMMONIA LEVEL (Reported) Lidocaine 5 % ADH..PATCH 2 PAT TOP DAILY PAIN (Reported) Magnesium Hydroxide (Milk Of Magnesia) 400 MG/5 ML ORAL.SUSP 30 ML PO DAILY PRN CONSTIPATION (Reported) Magnesium Oxide (Magnesium) 400 MG CAPSULE 1 CAP PO DAILY SUPPLEMENT ( Reported) Montelukast Sodium 10 MG TABLET 1 TAB PO DAILY allergies/resp. (Reported) Na Phos,M-B/Na Phos,Di-Ba (Enema) 19 GRAM-7 GRAM/118 ML ENEMA 1 E WV DAILY PRN CONSTIPATION (Reported) Ondansetron HCl (Zofran) 4 MG TABLET 1 TAB PO Q8P PRN NAUSEA/VOMITING ( Reported) Sennosides/Docusate Sodium (Senna Plus Tablet) 8.6 MG-50 MG TABLET 2 TAB PO QHS CONSTIPATION (Reported) Sodium Chloride 1 GRAM TABLET 1 TAB PO TID SUPPLEMENT (Reported) Sodium Chloride (Saline Nasal [employer]) 0.65 % SPRAY 1 SPRAY NASB Q4H PRN CONGESTION (Reported) Sorafenib Tosylate (Nexavar) 200 MG TABLET 1 TAB PO DAILY LIVER MASS ( Reported) Current Medications: Current Medications Sig/[place] Start time Last Medication Dose Route Stop Time Status Admin Albumin Human 25 GM TID 08/01 1600 AC IV Albumin Human 12.5 GM TID 08/01 1000 DC 08/01 IV 1026 Albumin Human 12.5 GM ONCE ONE 07/31 2315 DC 03/ IV 07/31 2316 0218 Dextrose 25 GM ONCE ONE 08/01 0945 DC / IV 08/01 0946 0955 Heparin Sodium 5,000 UNIT Q8 08/01 0600 CAN (Porcine) SC Heparin Sodium/ 25,000 UNIT Q24H 08/01 0745 DC Dextrose IV Dextrose/Water 500 ML Heparin Sodium/ 25,000 UNIT Q24H 07/31 2330 DC Dextrose IV Dextrose/Water 500 ML Hydromorphone HCl 1 MG Q6-PRN PRN 07/31 2345 DC 08/01 IV 0220 Lactulose 20 GM TID 08/01 1000 AC 08/01 PO 1026 Lactulose 20 GM TID 08/01 0100 DC PO Lactulose 20 GM DAILY PRN 07/31 2345 DC PO Lidocaine 0 .STK-MED ONE 07/31 2327 DC .ROUTE Midodrine 5 MG 0800,1200,1600 08/01 1245 UNVr PO Montelukast Sodium 10 MG 2200 08/01 2200 AC PO Non-Formulary 0 SEE ADMIN CRITERIA 07/31 2315 DC Medication ANY Octreotide Acetate 100 MCG TID 08/01 1238 AC SC Ondansetron HCl 4 MG Q8 PRN 07/31 2345 AC PO Pamidronate Disodium 60 MG ONE ONE 08/01 1000 CAN IV 08/01 1001 Pamidronate Disodium 60 MG .Q24H 08/01 0130 AC 08/01 Sodium Chloride 1,000 ML IV 08/02 0129 0226 Rifaximin 550 MG BID 08/01 1000 AC 08/01 PO 1027 Senna/Docusate Sodium 2 TAB AT BEDTIME 08/01 2200 AC PO Sodium Chloride 1,000 MG TID 08/01 1000 DC 08/01 PO 1027 Sodium Chloride 1 SPRAY Q4H PRN 07/31 2345 AC [place] Sodium Chloride 1,000 ML Q13H 07/31 2300 DC 08/01 IV 0218 Review of Systems Review of Systems: ROS limited by altered mental status. Of note, denies abd pain. 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 Acute Rehab Who Do You Live With? parent, [facility] after last discharge Services at Home: None Primary Language: Wolof Smoking Status: Never Smoked Living Will? unknown Power of Director Emergency/HCP? unknown Functional Ability ADLs Unknown: dressing, eating, toileting, bathing. Ambulation: unknown IADLs Unknown: shopping, housework, finances, food prep, telephone, transportation, medication admin. Exam & Diagnostic Data Vital Signs and I&O Vital Signs Date Time Temp Pulse Resp B/P B/P Pulse O2 O2 Flow FiO2 Mean Ox Delivery Rate 08/01 0711 97.7 86 20 90/54 95 Room Air 08/01 0042 98.0 86 20 90/54 97 Room Air 07/31 2351 98.7 86 18 93/57 96 07/31 2107 92 16 109/64 96 Room Air 07/31 2044 97.8 84 16 95/55 98 Room Air 07/31 2016 82 16 98/57 97 Room Air 07/31 2006 97.9 84 18 97/57 97 Room Air Intake & Output 08/01 1600 08/01 0400 07/31 1600 07/31 0400 07/30 1600 07/30 0400 Intake Total 400 0 Output Total 0 Balance 400 0 Intake, IV 400 Intake, Oral 0 Number 1 Bowel Movements Output, Urine 0 Patient 220 lb Weight Physical Exam: Gen - ill appearing, cachectic Head - temporal wasting, atraumatic Eyes - icteric sclera, EOMI Neck - JVP visible, supple CV - RRR, no m/r/g Chest - clear anteriorly, no w/r/r Abd - soft, nontender, +distended Upper ext - warm, no edema Lower ext - lukewarm, +++edema Skin - pale, no rash Neuro - drowsy and not oriented, limited exam Results Pertinent Lab Results: Laboratory Tests 08/01 08/01 08/01 08/01 1138 1138 0941 0755 Chemistry Sodium Pending Potassium Pending Chloride Pending Carbon Dioxide Pending Anion Gap Pending BUN Pending Creatinine Pending BUN/Creatinine Ratio Pending Lactic Acid Pending Calcium (8.4 - 10.2 mg/dL) Pending 10.8 H Albumin Pending Urines Urine Osmolality (300 - 1000 MOSM/KG) 351 Ur Random Creatinine (mg/dL) 216.8 Ur Random Sodium (30 - 90 mmol/L) 12 L Ur Random Potassium (mmol/L) 45.4 Fraction Sodium Excret (<1% %) 0.1 08/01 07/31 07/31 0755 2345 2345 Chemistry Sodium (137 - 145 mmol/L) 130 L Potassium (3.5 - 5.1 mmol/L) 5.6 H Chloride (98 - 107 mmol/L) 101 Carbon Dioxide (22 - 30 mmol/L) 17 L Anion Gap (5 - 16) 12 BUN (9 - 20 mg/dL) 37 H Creatinine (0.7 - 1.2 mg/dL) 3.3 H Estimated GFR (>60 ml/min) 21 L BUN/Creatinine Ratio (7 - 25 %) 11.2 Serum Osmolality (285 - 295 MOSM/KG) 283 L Total Bilirubin (0.2 - 1.3 mg/dL) 8.2 H Direct Bilirubin (< 0.4 mg/dL) 6.9 H AST (17 - 59 U/L) 362 H ALT (21 - 72 U/L) 115 H Alkaline Phosphatase (< 127 U/L) 295 H Total Protein (6.3 - 8.2 g/dL) 6.3 Albumin (3.5 - 5.0 g/dL) 2.1 L Triglycerides (<150 mg/dL) 98 Cholesterol (< 200 MG/DL) 116 LDL Cholesterol, Calc (65 - 129 mg/dL) 85 HDL Cholesterol (40 - 60 mg/dL) 12 L Cholesterol/HDL Ratio (0.00 - 4.88 %) 10 H Coagulation PT (9.4 - 12.5 SEC) 21.9 H INR (0.90 - 1.17) 2.00 H Hematology CBC w Diff NO MAN DIFF REQ WBC (4.8 - 10.8 /CUMM) 16.0 H RBC (4.70 - 6.10 /CUMM) 4.66 L Hgb (14.0 - 18.0 G/DL) 13.9 L Hct (42 - 52 %) 42.5 MCV (80.0 - 94.0 FL) 91.1 MCH (27.0 - 31.0 PG) 29.7 MCHC (33.0 - 37.0 G/DL) 32.7 L RDW (11.5 - 14.5 %) 22.0 H Plt Count (130 - 400 /CUMM) 262 MPV (7.4 - 10.4 FL) 9.1 Gran % (42.2 - 75.2 %) 63.8 Lymphocytes % (20.5 - 51.1 %) 27.2 Monocytes % (1.7 - 9.3 %) 8.0 Eosinophils % (0 - 5 %) 0.5 Basophils % (0.0 - 2.0 %) 0.5 Absolute Granulocytes (1.4 - 6.5 /CUMM) 10.2 H Absolute Lymphocytes (1.2 - 3.4 /CUMM) 4.4 H Lymphocytes (%) 12 Absolute Monocytes (0.10 - 0.60 /CUMM) 1.3 H Absolute Eosinophils (0.0 - 0.7 /CUMM) 0.1 Absolute Basophils (0.0 - 0.2 /CUMM) 0.1 % Normal PMNs (%) 55 Other Body Source Fluid WBC (0 - 5 /CUMM) 200 H Fld Mesothelial Cells (%) 33 Fld Total RBCs Counted (0 /CUMM) 61570 H Fluid Glucose (mg/dL) 79 Fluid Total Protein (g/dL) < 2.0 Fluid Albumin (g/dL) < 1.0 Fluid LDH (U/L) 310 07/31 Chemistry Sodium (137 - 145 mmol/L) 127 L Potassium (3.5 - 5.1 mmol/L) 5.1 Chloride (98 - 107 mmol/L) 99 Carbon Dioxide (22 - 30 mmol/L) 19 L Anion Gap (5 - 16) 9 BUN (9 - 20 mg/dL) 36 H Creatinine (0.7 - 1.2 mg/dL) 3.0 H Estimated GFR (>60 ml/min) 23 L BUN/Creatinine Ratio (7 - 25 %) 12.0 Glucose (65 - 99 mg/dL) 82 Lactic Acid (0.7 - 2.1 mmol/L) 4.3 H 4.8 H Calcium (8.4 - 10.2 mg/dL) 11.0 H Phosphorus (2.5 - 4.5 mg/dL) 4.7 H Magnesium (1.6 - 2.3 mg/dL) 2.1 Total Bilirubin (0.2 - 1.3 mg/dL) 7.9 H AST (17 - 59 U/L) 452 H ALT (21 - 72 U/L) 130 H Alkaline Phosphatase (< 127 U/L) 313 H Ammonia (9 - 30 umol/L) 10 Total Protein (6.3 - 8.2 g/dL) 6.1 L Albumin (3.5 - 5.0 g/dL) 2.0 L Globulin (1.9 - 4.2 gm/dL) 4.1 Albumin/Globulin Ratio (1.1 - 2.2 %) 0.5 L Lipase (23 - 300 U/L) 63 Coagulation PT (9.4 - 12.5 SEC) 21.7 H INR (0.90 - 1.17) 2.08 H APTT (25 - 37 SEC) 69 H Hematology CBC w Diff MAN DIFF ORDERED WBC (4.8 - 10.8 /CUMM) 17.0 H RBC (4.70 - 6.10 /CUMM) 4.82 Hgb (14.0 - 18.0 G/DL) 14.1 Hct (42 - 52 %) 44.4 MCV (80.0 - 94.0 FL) 92.1 MCH (27.0 - 31.0 PG) 29.1 MCHC (33.0 - 37.0 G/DL) 31.6 L RDW (11.5 - 14.5 %) 22.0 H Plt Count (130 - 400 /CUMM) 294 MPV (7.4 - 10.4 FL) 8.5 Gran % (42.2 - 75.2 %) 68.5 Lymphocytes % (20.5 - 51.1 %) 21.0 Monocytes % (1.7 - 9.3 %) 9.3 Eosinophils % (0 - 5 %) 0.8 Basophils % (0.0 - 2.0 %) 0.4 Absolute Granulocytes (1.4 - 6.5 /CUMM) 11.7 H Segmented Neutrophils (42.2 - 75.2 %) 79 H Band Neutrophils (0.0 - 5.0 %) 1 Absolute Lymphocytes (1.2 - 3.4 /CUMM) 3.6 H Lymphocytes (20.5 - 51.1 %) 13 L Monocytes (1.7 - 9.3 %) 7 Absolute Monocytes (0.10 - 0.60 /CUMM) 1.6 H Absolute Eosinophils (0.0 - 0.7 /CUMM) 0.1 Absolute Basophils (0.0 - 0.2 /CUMM) 0.1 Nucleated RBCs (0.0 - 0.0 /100WBC) 1 H Platelet Estimate (ADEQUATE) VERIFIED BY SMEAR Poikilocytosis FEW Anisocytosis 1+ Target Cells FEW Deanna Cells FEW Other Body Source Fld Total RBCs Counted (%) 100 Imaging/Other Studies: CT Reviewed Assessment/Plan Assessment/Recommendations Assessment: PHYLICIA - DDx includes hepatorenal syndrome, ischemic ATN in the setting of unchecked hypotension post-LVP (10.5L), and renal vein thrombosis from tumor. Although HRS is technically a diagnosis of exclusion, his hypotension, hyponatremia, and signs of poor synthetic function (low albumin and elevated INR with imaging suggestive of mets throughout liver) in the setting of a low urine sodium highly suggest this as the underlying diagnosis. I would advocate starting empiric treatment with midodrine, octreotide, and albumin with the goal of increasing his MAP. We should also evaluate for renal venous drainage given the abnormalities in his prior imaging. Should note that with his comorbidities , dialysis would not be an option. Palliative care involvement should be pursued. Hyponatremia - hypotonic - clearly hypervolemic - elevated urine osm suggestive of high ADH state - clear hemodynamic stimulus for ADH secretion. For now the best treatment with be as above for presumed HRS as well as free water restriction. May need to consider tolvaptan if worsens but is not an option as a chronic therapy. This should be considered a marker as to how serious his disease has become. Recommendations: -Palliative care consult -Midodrine 5mg TID, Octreotide 100mcg TID, 25% albumin q8 -Renal US with doppler to evaluate renal venous flow -800cc/day fluid restriction Please call [phone] with ?'s
[2017-08-01 14:40] VITALS: BP 98/65
--- NOTE | 2017-08-01 15:22 | ULTRASOUND REPORT ---
EXAMINATION: US ABDOMEN AND PELVIS CLINICAL INFORMATION: Acute kidney injury. History of thrombosis. Concern for renal vein thrombosis. COMPARISON: CT abdomen pelvis 07/31/2017. TECHNIQUE: Grayscale and Doppler imaging including spectral analysis was performed. FINDINGS: Significantly limited exam. Unable to clearly visualize renal vasculature secondary to body habitus, bowel gas obscuration, and ascites. The right kidney measures 12.3 cm in longitudinal dimension. The left kidney measures 9.9 cm in longitudinal dimension. No evidence of hydronephrosis or discrete renal lesion. The punctate right renal calculus demonstrated on recent CT scan is not clearly delineated on current study. The bladder is not discretely delineated given large volume of ascites. IMPRESSION: Significantly limited examination, without clear delineation of the renal vasculature. Unable to exclude renal vein thrombosis. No hydronephrosis. Large volume of ascites.
[2017-08-01 22:19] VITALS: BP 100/60
[2017-08-02 02:58] LABS: PTT 97 SEC (25-37)
[2017-08-02 06:42] VITALS: BP 100/60
--- NOTE | 2017-08-02 07:24 | PN- Housestaff ---
See Addendum Subjective Follow-up For: HRS, HCC Subjective: No overnight events. He continues to do poorly. He is very weak, only able to answer in short sentences. However, it seems that he understands the poor prognosis of his ocndition and is interested in hospice. He would like to speak to his family. Review of Systems Constitutional: Reports: no symptoms. EENTM: Reports: no symptoms. Cardiovascular: Reports: no symptoms. Respiratory: Reports: no symptoms. Gastrointestinal: Reports: see HPI. Genitourinary: Reports: no symptoms. Musculoskeletal: Reports: no symptoms. Skin: Reports: no symptoms. Neurological/Psychological: Reports: no symptoms. Hematologic/Endocrine: Reports: no symptoms. Immunologic/Allergic: Reports: no symptoms. Objective Last 24 Hrs of Vital Signs/I&O Vital Signs Date Time Temp Pulse Resp B/P B/P Pulse O2 O2 Flow FiO2 Mean Ox Delivery Rate 08/02 0642 97.4 86 20 100/60 95 Room Air / 2219 97.3 82 20 100/60 97 Room Air / 1440 97.5 84 20 98/65 100 Room Air Intake & Output 08/02 0800 / 0000 08/01 1600 Intake Total 354 820 Output Total Balance 354 820 Intake, IV 104 700 Intake, Oral 250 120 Patient 99.79 kg Weight Weight Reported by Patient Measurement Method Physical Exam General Appearance: Cooperative, No Acute Distress Cardiovascular: Regular Rate, Normal S1, Normal S2 Lungs: Clear to Auscultation Abdomen: distended, tender Extremities: edematous Current Medications: Current Medications Sig/[place] Start time Last Medication Dose Route Stop Time Status Admin Albumin Human 25 GM TID 08/01 1600 AC / IV 2146 Albumin Human 12.5 GM TID / 1000 DC / IV 1026 Dextrose 25 GM ONCE ONE 08/01 0945 DC /04 IV 08/01 0946 0955 Heparin Sodium/ 25,000 UNIT Q24H 08/01 1715 AC 03/ Dextrose IV 1914 Dextrose/Water 500 ML Heparin Sodium/ 25,000 UNIT Q24H / 0745 DC Dextrose IV Dextrose/Water 500 ML Hydromorphone HCl 1 MG Q6-PRN PRN 08/01 1630 AC 03/04 IV 1627 Hydromorphone HCl 1 MG Q6-PRN PRN 07/31 2345 DC 08/01 IV 0220 Lactulose 20 GM TID 08/01 1000 AC 08/01 PO 2146 Lactulose 20 GM TID 08/01 0100 DC PO Midodrine 5 MG 0800,1200,1600 08/01 1245 AC 08/01 PO 1418 Montelukast Sodium 10 MG 2200 08/01 2200 AC 08/01 PO 2146 Non-Formulary 0 SEE ADMIN CRITERIA 07/31 2315 DC Medication ANY Octreotide Acetate 100 MCG TID 08/01 1238 AC 08/01 SC 2146 Ondansetron HCl 4 MG Q8 PRN 07/31 2345 AC PO Pamidronate Disodium 60 MG ONE ONE 08/01 1000 CAN IV 08/01 1001 Pamidronate Disodium 60 MG .Q24H 08/01 0130 DC 08/01 Sodium Chloride 1,000 ML IV 08/02 0129 0226 Rifaximin 550 MG BID 08/01 1000 AC 08/01 PO 2146 Senna/Docusate Sodium 2 TAB AT BEDTIME 08/01 2200 AC PO Sodium Chloride 1,000 MG TID 08/01 1000 DC 08/01 PO 1027 Sodium Chloride 1 SPRAY Q4H PRN 07/31 2345 AC [place] Sodium Chloride 1,000 ML Q13H 07/31 2300 DC 08/01 IV 0218 Sodium Polystyrene 60 ML ONCE ONE 08/02 0545 DC 08/02 Sulfonate WV 08/02 0546 0650 Sodium Polystyrene 60 ML ONCE ONE 08/01 2230 DC 08/02 Sulfonate WV 08/01 2231 0105 Last 24 Hrs of Lab/Herber Results Last 24 Hrs of Labs/Mics: Laboratory Tests 08/02/17 0600: Fluid Total Protein Cancelled 08/02/17 0120: Lactic Acid 3.5 H 08/02/17 0120: Anion Gap 13, Estimated GFR 20 L, BUN/Creatinine Ratio 11.8, Calcium 11.2 H, Albumin 2.5 L, APTT 97 H 08/01/17 1810: Anion Gap 12, Estimated GFR 20 L, BUN/Creatinine Ratio 11.5, Lactic Acid 3.6 H , Calcium 10.9 H, Albumin 2.4 L 08/01/17 1525: Lactic Acid 3.7 H 08/01/17 1400: Calcium Cancelled 08/01/17 1138: Lactic Acid 4.0 H 08/01/17 1138: Anion Gap 13, Estimated GFR 21 L, BUN/Creatinine Ratio 11.5, Calcium 10.7 H, Albumin 2.1 L 08/01/17 1127: Lactic Acid Cancelled 08/01/17 0941: Urinalysis MOD H, Urine Color BROWN H, Urine Clarity TURBD H, Urine pH 5.5, Ur Specific Protivin 1.025, Urine Protein 30 H, Urine Ketones NEG, Urine Nitrite POS H, Urine Bilirubin POS@ICTO H, Urine Urobilinogen 1.0, Ur Leukocyte Esterase TRACE H, Ur Microscopic SEDIMENT EXAMINED, Urine RBC >75 H, Urine WBC 5-10 H, Urine Bacteria FEW H, Urine Hemoglobin LARGE H, Urine Glucose NEG 08/01/17 0941: Urine Osmolality 351, Ur Random Creatinine 216.8, Ur Random Sodium 12 L, Ur Random Potassium 45.4, Fraction Sodium Excret 0.1 08/01/17 0755: Calcium 10.8 H 08/01/17 0755: Anion Gap 12, Estimated GFR 21 L, BUN/Creatinine Ratio 11.2, Serum Osmolality 283 L, Total Bilirubin 8.2 H, Direct Bilirubin 6.9 H, AST 362 H, ALT 115 H, Alkaline Phosphatase 295 H, Total Protein 6.3, Albumin 2.1 L, Triglycerides 98 , Cholesterol 116, LDL Cholesterol, Calc 85, HDL Cholesterol 12 L, Cholesterol/ HDL Ratio 10 H, PT 21.9 H, INR 2.00 H, CBC w Diff NO MAN DIFF REQ, RBC 4.66 L, MCV 91.1, MCH 29.7, MCHC 32.7 L, RDW 22.0 H, MPV 9.1, Gran % 63.8, Lymphocytes % 27.2, Monocytes % 8.0, Eosinophils % 0.5, Basophils % 0.5, Absolute Granulocytes 10.2 H, Absolute Lymphocytes 4.4 H, Absolute Monocytes 1.3 H, Absolute Eosinophils 0.1, Absolute Basophils 0.1 Microbiology 08/02 599 BODY FLUID: Body Fluid Culture - COLB 08/02 599 BODY FLUID: Gram Stain - COLB 08/01 940 URINE ROUT: Urine Culture - RECD 08/01 841 URINE ROUT: Urine Culture - CAN Cancelled: DUPLICATE Assessment/Plan Assessment: 41 yo M with h/o hepatocellular carcinoma on sorafinib, requiring weekly therapeutic paracentesis, hyponatremia, recently admitted to [facility] (Jul 2017) for hepatic encephalopathy, hypercalcemia and IVC thrombus on lovenox, is brought in from [place] for increasing weakness, fatigue, slurring of speech, confusion, poor PO intake for the past 2-3 days. Problem list: 1. Metabolic encephalopathy 2. Hepatorenal syndrome 3. Hepatocellular carcinoma, stage IV 4. Hypercalcemia of malignancy 5. IVC thrombus 6. Lactic acidosis 7. Sacral decubitus ulcer #Metabolic encephalopathy: Patient presented with altered mental status in setting of hyperbilirubinemia and normal ammonia. He has a history of hepatocellular carcinoma is currently being treated with sorafenib by oncology. There was initial concern for stroke. CT head is negative. Most likely secondary to metabolic cause. Diagnostic paracentesis revealed no SBP, SAAG elevated indicating portal hypertension. The patient's prognosis is very poor as he has metastatic disease and is now developing hepatorenal syndrome. -Trend LFTs -Appreciate oncology recommendations: Hold sorafenib -Large-volume paracentesis today with IR if possible -Follow cultures -Goals of care discussion with family: Patient seems amenable to hospice evaluation at this time. #Hepatorenal syndrome: FENa 0.1, urine random sodium 12, indicating likely prerenal. Most concerning would be hepatorenal syndrome. Creatinine today slightly worse. -Appreciate nephrology recommendations -Continue octreotide and midodrine -IV fluid hydration -Continue Lopez #Hypercalcemia of malignancy: His tumor is likely generating parathyroid related peptide which is causing his hypercalcemia. The pamidronate was stopped last night because of worsening creatinine. -Appreciate endocrinology recommendations -Restart pamidronate #IVC thrombus: Patient has history of thrombosis and is on enoxaparin for prophylaxis. -Heparin drip -Discontinue for paracentesis #Lactic acidosis: Patient does not seem infected at this time. -CTM #Sacral decubitus ulcer: Noted on admission. -Wound consult #Chronic medical problems: -Continue other home medications DVT prophylaxis with heparin Regular diet DNR/DNI Problem List: 1. Hepatorenal syndrome Pain Ratin Pain Location: no Pain Goal: Remain pain free Pain Plan: see a/p Tomorrow's Labs & Rationales: cbc lft bep
--- NOTE | 2017-08-02 07:27 | Cons- Oncology ---
General Information and HPI Consulting Request Date of Consult: 08/02/17 Requested By: Aayush POLANCO,Aarti History of Present Illness: 41-year-old gentleman well-known to me with hepatocellular carcinoma being treated with sorafenib. Patient is now admitted with confusion. In the past, the patient has had encephalopathy due to underlying malignancy and hypercalcemia. Currently the patient is confused and is unable to give a cogent history. Allergies/Medications Allergies: Coded Allergies: NSAIDS (Non-Steroidal Anti-Inflamma (PER PT CANT TAKE DUE TO LIVER 05/27/17) codeine (PER PT VERY RAPID HEART RATE 05/27/17) Home Med List: Acetaminophen (Acephen) 650 MG SUPP.RECT 1 SUPP SC Q4H PRN PAIN/TEMP>100 ( Reported) Acetaminophen (Tylenol) 325 MG TABLET 2 TAB PO Q4H PRN PAIN/TEMP>100 ( Reported) Bisacodyl (Dulcolax) 10 MG SUPP.RECT 1 SUP RC AD PRN CONSTIPATION (Reported) Enoxaparin Sodium (Lovenox) 120 MG/0.8 ML SYRINGE 1 INJ SC BID CLOT . Hydromorphone HCl (Dilaudid) 2 MG TABLET 1 TAB PO Q6H PRN PAIN (Reported) Hydromorphone HCl 2 MG TABLET 1 TAB PO Q6H PRN MODERATE PAIN (Reported) Lactulose 10 GRAM/15 ML SOLUTION 30 ML PO TID ENCEPHALOPATHY (Reported) Lactulose 10 GRAM/15 ML SOLUTION 30 ML PO AD PRN <2BM/DAY (Reported) Lactulose 10 GRAM/15 ML SOLUTION 30 ML PO BID PRN AMMONIA LEVEL (Reported) Lidocaine 5 % ADH..PATCH 2 PAT TOP DAILY PAIN (Reported) Magnesium Hydroxide (Milk Of Magnesia) 400 MG/5 ML ORAL.SUSP 30 ML PO DAILY PRN CONSTIPATION (Reported) Magnesium Oxide (Magnesium) 400 MG CAPSULE 1 CAP PO DAILY SUPPLEMENT ( Reported) Montelukast Sodium 10 MG TABLET 1 TAB PO DAILY allergies/resp. (Reported) Na Phos,M-B/Na Phos,Di-Ba (Enema) 19 GRAM-7 GRAM/118 ML ENEMA 1 E SC DAILY PRN CONSTIPATION (Reported) Ondansetron HCl (Zofran) 4 MG TABLET 1 TAB PO Q8P PRN NAUSEA/VOMITING ( Reported) Sennosides/Docusate Sodium (Senna Plus Tablet) 8.6 MG-50 MG TABLET 2 TAB PO QHS CONSTIPATION (Reported) Sodium Chloride 1 GRAM TABLET 1 TAB PO TID SUPPLEMENT (Reported) Sodium Chloride (Saline Nasal [place]) 0.65 % SPRAY 1 SPRAY NASB Q4H PRN CONGESTION (Reported) Sorafenib Tosylate (Nexavar) 200 MG TABLET 1 TAB PO DAILY LIVER MASS ( Reported) Current Medications: Current Medications Sig/[place] Start time Last Medication Dose Route Stop Time Status Admin Albumin Human 25 GM TID / 1600 AC 08/01 IV 2146 Albumin Human 12.5 GM TID / 1000 DC / IV 1026 Dextrose 25 GM ONCE ONE 08/01 0945 DC / IV / 0946 0955 Heparin Sodium/ 25,000 UNIT Q24H / 1715 AC 08/01 Dextrose IV 1914 Dextrose/Water 500 ML Heparin Sodium/ 25,000 UNIT Q24H / 0745 DC Dextrose IV Dextrose/Water 500 ML Hydromorphone HCl 1 MG Q6-PRN PRN / 1630 AC 08/01 IV 1627 Hydromorphone HCl 1 MG Q6-PRN PRN 07/31 2345 DC /04 IV 0220 Lactulose 20 GM TID / 1000 08/01 PO 2146 Lactulose 20 GM TID / 0100 DC PO Midodrine 5 MG 0800,1200,1600 / 1245 AC 03/ PO 1418 Montelukast Sodium 10 MG 2200 / 2200 AC 03/ PO 2146 Non-Formulary 0 SEE ADMIN CRITERIA 07/31 2315 DC Medication ANY Octreotide Acetate 100 MCG TID 08/01 1238 AC 08/01 SC 2146 Ondansetron HCl 4 MG Q8 PRN 07/31 2345 AC PO Pamidronate Disodium 60 MG ONE ONE 08/01 1000 CAN IV / 1001 Pamidronate Disodium 60 MG .Q24H / 0130 DC 03 Sodium Chloride 1,000 ML IV 08/02 0129 0226 Rifaximin 550 MG BID /04 1000 AC / PO 2146 Senna/Docusate Sodium 2 TAB AT BEDTIME 08/01 2200 AC PO Sodium Chloride 1,000 MG TID / 1000 DC 03 PO 1027 Sodium Chloride 1 SPRAY Q4H PRN 07/31 2345 AC [place] Sodium Chloride 1,000 ML Q13H 07/31 2300 DC / IV 0218 Sodium Polystyrene 60 ML ONCE ONE 08/02 0545 DC 08/02 Sulfonate SC 08/02 0546 0650 Sodium Polystyrene 60 ML ONCE ONE 08/01 2230 DC / Sulfonate SC 08/01 2231 0105 Review of Systems Review of Systems: Unobtainable Past History Travel History Traveled to [place] past 21 day No Medical History Blood Transfusion Hx: No Neurological: intermittent confusion- hyperCa2+, PSE, HCC EENT: NONE Cardiovascular: hyperlipidemia Respiratory: NONE Gastrointestinal: NONE Hepatic: cirrhosis, hepatic encephalopathy, elevated enzymes multifocal HCC- unresectable, not cndidate for RFA- on Sorafenib Renal: resolved PHYLICIA- 04/2017 Musculoskeletal: chronic back pain, osteopenia Psychiatric: NONE Endocrine: hypoglycemia, osteopenia hyperCa2+ due to malignancy Blood Disorders: coagulopathy (cirrhotic/HCC) Cancer(s): 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 Acute Rehab Who Do You Live With? parent, [facility] after last discharge Services at Home: None Primary Language: Luxembour[place] Smoking Status: Never Smoked Living Will? 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 Ambulation: unknown IADLs Unknown: shopping, housework, finances, food prep, telephone, transportation, medication admin. Exam & Diagnostic Data Vital Signs and I&O Vital Signs Date Time Temp Pulse Resp B/P B/P Pulse O2 O2 Flow FiO2 Mean Ox Delivery Rate 08/02 0642 97.4 86 20 100/60 95 Room Air / 2219 97.3 82 20 100/60 97 Room Air / 1440 97.5 84 20 98/65 100 Room Air Intake & Output / 0800 03/05 0000 / 1600 Intake Total 354 820 Output Total Balance 354 820 Intake, IV 104 700 Intake, Oral 250 120 Patient 220 lb Weight Weight Reported by Patient Measurement Method Gen.: in NAD ENT: Sclera icteric Chest: Normal respiratory effort, decreased breath sounds Cor: RRR, no extra sounds Abdomen: Soft, bowel sounds present, no tenderness, significant ascites Extremities: Without clubbing, cyanosis, edema is symmetric Neurology: Awake but confused, no gross deficit Last 48 Hours of Lab Results: Laboratory Tests 08/02 08/02 08/02 08/01 08/01 0600 0120 0120 1810 1525 Chemistry Sodium (137 - 145 mmol/L) 132 L 131 L Potassium (3.5 - 5.1 mmol/L) 5.5 H 5.7 H Chloride (98 - 107 mmol/L) 102 101 Carbon Dioxide (22 - 30 mmol/L) 17 L 18 L Anion Gap (5 - 16) 13 12 BUN (9 - 20 mg/dL) 40 H 39 H Creatinine (0.7 - 1.2 mg/dL) 3.4 H 3.4 H Estimated GFR (>60 ml/min) 20 L 20 L BUN/Creatinine Ratio (7 - 25 %) 11.8 11.5 Lactic Acid (0.7 - 2.1 mmol/L) 3.5 H 3.6 H 3.7 H Calcium (8.4 - 10.2 mg/dL) 11.2 H 10.9 H Albumin (3.5 - 5.0 g/dL) 2.5 L 2.4 L Coagulation APTT (25 - 37 SEC) 97 H Other Body Source Fluid Total Protein Cancelled 08/01 08/01 08/01 08/01 1400 1138 1138 1127 Chemistry Sodium (137 - 145 mmol/L) 132 L Potassium (3.5 - 5.1 mmol/L) 5.2 H Chloride (98 - 107 mmol/L) 102 Carbon Dioxide (22 - 30 mmol/L) 17 L Anion Gap (5 - 16) 13 BUN (9 - 20 mg/dL) 38 H Creatinine (0.7 - 1.2 mg/dL) 3.3 H Estimated GFR (>60 ml/min) 21 L BUN/Creatinine Ratio (7 - 25 %) 11.5 Lactic Acid (0.7 - 2.1 mmol/L) 4.0 H Cancelled Calcium (8.4 - 10.2 mg/dL) Cancelled 10.7 H Albumin (3.5 - 5.0 g/dL) 2.1 L 08/01 08/01 08/01 0941 0941 0755 Chemistry Calcium (8.4 - 10.2 mg/dL) 10.8 H Urines Urinalysis MOD H Urine Color (YEL,AMB,STR) BROWN H Urine Clarity (CLEAR) TURBD H Urine pH (5.0 - 8.0) 5.5 Ur Specific [place] (1.001 - 1.035) 1.025 Urine Protein (NEG,<30 MG/DL) 30 H Urine Ketones (NEG) NEG Urine Nitrite (NEG) POS H Urine Bilirubin (NEG) POS@ICTO H Urine Urobilinogen (0.1 - 1.0 EU/dl) 1.0 Ur Leukocyte Esterase (NEG) TRACE H Ur Microscopic SEDIMENT EXAMINED Urine RBC (0 - 5 /HPF) >75 H Urine WBC (0 - 2 /HPF) 5-10 H Urine Bacteria (NEG/NONE) FEW H Urine Hemoglobin (NEG) LARGE H Urine Osmolality (300 - 1000 MOSM/KG) 351 Ur Random Creatinine (mg/dL) 216.8 Ur Random Sodium (30 - 90 mmol/L) 12 L Ur Random Potassium (mmol/L) 45.4 Fraction Sodium Excret (<1% %) 0.1 Urine Glucose (N MG/DL) NEG 08/01 07/31 07/31 0755 2345 2345 Chemistry Sodium (137 - 145 mmol/L) 130 L Potassium (3.5 - 5.1 mmol/L) 5.6 H Chloride (98 - 107 mmol/L) 101 Carbon Dioxide (22 - 30 mmol/L) 17 L Anion Gap (5 - 16) 12 BUN (9 - 20 mg/dL) 37 H Creatinine (0.7 - 1.2 mg/dL) 3.3 H Estimated GFR (>60 ml/min) 21 L BUN/Creatinine Ratio (7 - 25 %) 11.2 Serum Osmolality (285 - 295 MOSM/KG) 283 L Total Bilirubin (0.2 - 1.3 mg/dL) 8.2 H Direct Bilirubin (< 0.4 mg/dL) 6.9 H AST (17 - 59 U/L) 362 H ALT (21 - 72 U/L) 115 H Alkaline Phosphatase (< 127 U/L) 295 H Total Protein (6.3 - 8.2 g/dL) 6.3 Albumin (3.5 - 5.0 g/dL) 2.1 L Triglycerides (<150 mg/dL) 98 Cholesterol (< 200 MG/DL) 116 LDL Cholesterol, Calc (65 - 129 mg/dL) 85 HDL Cholesterol (40 - 60 mg/dL) 12 L Cholesterol/HDL Ratio (0.00 - 4.88 %) 10 H Coagulation PT (9.4 - 12.5 SEC) 21.9 H INR (0.90 - 1.17) 2.00 H Hematology CBC w Diff NO MAN DIFF REQ WBC (4.8 - 10.8 /CUMM) 16.0 H RBC (4.70 - 6.10 /CUMM) 4.66 L Hgb (14.0 - 18.0 G/DL) 13.9 L Hct (42 - 52 %) 42.5 MCV (80.0 - 94.0 FL) 91.1 MCH (27.0 - 31.0 PG) 29.7 MCHC (33.0 - 37.0 G/DL) 32.7 L RDW (11.5 - 14.5 %) 22.0 H Plt Count (130 - 400 /CUMM) 262 MPV (7.4 - 10.4 FL) 9.1 Gran % (42.2 - 75.2 %) 63.8 Lymphocytes % (20.5 - 51.1 %) 27.2 Monocytes % (1.7 - 9.3 %) 8.0 Eosinophils % (0 - 5 %) 0.5 Basophils % (0.0 - 2.0 %) 0.5 Absolute Granulocytes (1.4 - 6.5 /CUMM) 10.2 H Absolute Lymphocytes (1.2 - 3.4 /CUMM) 4.4 H Lymphocytes (%) 12 Absolute Monocytes (0.10 - 0.60 /CUMM) 1.3 H Absolute Eosinophils (0.0 - 0.7 /CUMM) 0.1 Absolute Basophils (0.0 - 0.2 /CUMM) 0.1 % Normal PMNs (%) 55 Other Body Source Fluid WBC (0 - 5 /CUMM) 200 H Fld Mesothelial Cells (%) 33 Fld Total RBCs Counted (0 /CUMM) 97650 H Fluid Glucose (mg/dL) 79 Fluid Total Protein (g/dL) < 2.0 Fluid Albumin (g/dL) < 1.0 Fluid LDH (U/L) 310 07/31 Chemistry Sodium (137 - 145 mmol/L) 127 L Potassium (3.5 - 5.1 mmol/L) 5.1 Chloride (98 - 107 mmol/L) 99 Carbon Dioxide (22 - 30 mmol/L) 19 L Anion Gap (5 - 16) 9 BUN (9 - 20 mg/dL) 36 H Creatinine (0.7 - 1.2 mg/dL) 3.0 H Estimated GFR (>60 ml/min) 23 L BUN/Creatinine Ratio (7 - 25 %) 12.0 Glucose (65 - 99 mg/dL) 82 Lactic Acid (0.7 - 2.1 mmol/L) 4.3 H 4.8 H Calcium (8.4 - 10.2 mg/dL) 11.0 H Phosphorus (2.5 - 4.5 mg/dL) 4.7 H Magnesium (1.6 - 2.3 mg/dL) 2.1 Total Bilirubin (0.2 - 1.3 mg/dL) 7.9 H AST (17 - 59 U/L) 452 H ALT (21 - 72 U/L) 130 H Alkaline Phosphatase (< 127 U/L) 313 H Ammonia (9 - 30 umol/L) 10 Total Protein (6.3 - 8.2 g/dL) 6.1 L Albumin (3.5 - 5.0 g/dL) 2.0 L Globulin (1.9 - 4.2 gm/dL) 4.1 Albumin/Globulin Ratio (1.1 - 2.2 %) 0.5 L Lipase (23 - 300 U/L) 63 Coagulation PT (9.4 - 12.5 SEC) 21.7 H INR (0.90 - 1.17) 2.08 H APTT (25 - 37 SEC) 69 H Hematology CBC w Diff MAN DIFF ORDERED WBC (4.8 - 10.8 /CUMM) 17.0 H RBC (4.70 - 6.10 /CUMM) 4.82 Hgb (14.0 - 18.0 G/DL) 14.1 Hct (42 - 52 %) 44.4 MCV (80.0 - 94.0 FL) 92.1 MCH (27.0 - 31.0 PG) 29.1 MCHC (33.0 - 37.0 G/DL) 31.6 L RDW (11.5 - 14.5 %) 22.0 H Plt Count (130 - 400 /CUMM) 294 MPV (7.4 - 10.4 FL) 8.5 Gran % (42.2 - 75.2 %) 68.5 Lymphocytes % (20.5 - 51.1 %) 21.0 Monocytes % (1.7 - 9.3 %) 9.3 Eosinophils % (0 - 5 %) 0.8 Basophils % (0.0 - 2.0 %) 0.4 Absolute Granulocytes (1.4 - 6.5 /CUMM) 11.7 H Segmented Neutrophils (42.2 - 75.2 %) 79 H Band Neutrophils (0.0 - 5.0 %) 1 Absolute Lymphocytes (1.2 - 3.4 /CUMM) 3.6 H Lymphocytes (20.5 - 51.1 %) 13 L Monocytes (1.7 - 9.3 %) 7 Absolute Monocytes (0.10 - 0.60 /CUMM) 1.6 H Absolute Eosinophils (0.0 - 0.7 /CUMM) 0.1 Absolute Basophils (0.0 - 0.2 /CUMM) 0.1 Nucleated RBCs (0.0 - 0.0 /100WBC) 1 H Platelet Estimate (ADEQUATE) VERIFIED BY SMEAR Poikilocytosis FEW Anisocytosis 1+ Target Cells FEW [place] Cells FEW Other Body Source Fld Total RBCs Counted (%) 100 Imaging/Other Studies: CT-head-no IV contrast-no acute issues CT-abdomen and pelvis-no IV contrast-liver replaced by tumor, ascites, no definite obstructive nephropathy Assessment/Plan Assessment: 1. Confusion-multiple etiologies including worsening liver dysfunction, renal failure and hypercalcemia. This is all in the substrate of her very poor performance status. Recommend- Hold sorafenib correct Calcium As per nephrology service 2. Advanced hepatocellular carcinoma-clinical deterioration Recommend- Hold sorafenib Therapeutic paracenteses when clinically indicated Patient is DNR/DNI If no improvement, we will advocate comfort care only 3. Thromboembolic disease Recommendations: .. Consult Acknowledgment - Thank you for your consult request.
--- NOTE | 2017-08-02 08:14 | PN- Endocrinology ---
Assessment/Plan Endoscopy Assessment: The patient complains of pain in his belly. He is being treated for hepatorenal syndrome.. If care is being considered. The patient's calcium this morning is 11.2 with an albumin of 2.5. Corrected calcium is 11.95. His pamidronate infusion was stopped. Plan: The patient's serum creatinine has leveled off at 3.4. Decision to be made as to palliative care only. The patient's calcium remains significantly elevated. If we are going to continue to treat this patient we should restart his pamidronate infusion which was being given slowly over a course of 24 hours. It appears that the patient has received about one half of the total dose of 60 mg that was ordered. Subjective Subjective: Complains of pain in his belly Objective Last 24 Hrs of Vital Signs/I&O Vital Signs Date Time Temp Pulse Resp B/P B/P Pulse O2 O2 Flow FiO2 Mean Ox Delivery Rate 08/02 0642 97.4 86 20 100/60 95 Room Air 03/ 2219 97.3 82 20 100/60 97 Room Air 03/ 1440 97.5 84 20 98/65 100 Room Air Intake & Output / 1600 03/ 0800 03/05 0000 Intake Total 354 Output Total Balance 354 Intake, IV 104 Intake, Oral 250 Vital Signs Date Time Temp Pulse Resp B/P B/P Pulse O2 O2 Flow FiO2 Mean Ox Delivery Rate 03/ 0642 97.4 86 20 100/60 95 Room Air 03/ 2219 97.3 82 20 100/60 97 Room Air 03/04 1440 97.5 84 20 98/65 100 Room Air Intake & Output / 1600 03/05 0800 03/05 0000 Intake Total 354 Output Total Balance 354 Intake, IV 104 Intake, Oral 250 Physical Exam General Appearance: alert, awake Neck: normal inspection Respiratory: normal breath sounds Cardiovascular: regular rate/rhythm Abdomen: distention Current Medications: Current Medications Sig/[place] Start time Last Medication Dose Route Stop Time Status Admin Albumin Human 25 GM TID 08/01 1600 AC / IV 2146 Albumin Human 12.5 GM TID / 1000 DC 03/ IV 1026 Dextrose 25 GM ONCE ONE 08/01 0945 DC 08/01 IV 08/01 0946 0955 Heparin Sodium/ 25,000 UNIT Q24H 08/01 1715 AC 08/01 Dextrose IV 1914 Dextrose/Water 500 ML Heparin Sodium/ 25,000 UNIT Q24H 08/01 0745 DC Dextrose IV Dextrose/Water 500 ML Hydromorphone HCl 1 MG Q6-PRN PRN 08/01 1630 AC 08/01 IV 1627 Hydromorphone HCl 1 MG Q6-PRN PRN 07/31 2345 DC 04 IV 0220 Lactulose 20 GM TID 08/01 1000 AC 08/01 PO 2146 Lactulose 20 GM TID 08/01 0100 DC PO Midodrine 5 MG 0800,1200,1600 08/01 1245 AC 08/01 PO 1418 Montelukast Sodium 10 MG 2200 08/01 2200 AC 08/01 PO 2146 Non-Formulary 0 SEE ADMIN CRITERIA 07/31 2315 DC Medication ANY Octreotide Acetate 100 MCG TID 08/01 1238 AC 08/01 SC 2146 Ondansetron HCl 4 MG Q8 PRN 07/31 2345 AC PO Pamidronate Disodium 60 MG ONE ONE 08/01 1000 CAN IV 08/01 1001 Pamidronate Disodium 60 MG .Q24H 08/01 0130 DC 08/01 Sodium Chloride 1,000 ML IV 08/02 0129 0226 Rifaximin 550 MG BID 08/01 1000 AC 08/01 PO 2146 Senna/Docusate Sodium 2 TAB AT BEDTIME 08/01 2200 AC PO Sodium Chloride 1,000 MG TID 08/01 1000 DC 08/01 PO 1027 Sodium Chloride 1 SPRAY Q4H PRN 07/31 2345 AC [place] Sodium Chloride 1,000 ML Q13H 07/31 2300 DC 08/01 IV 0218 Sodium Polystyrene 60 ML ONCE ONE 08/02 0545 DC 08/02 Sulfonate KS 08/02 0546 0650 Sodium Polystyrene 60 ML ONCE ONE 08/01 2230 DC 08/02 Sulfonate KS 08/01 2231 0105 Results Pertinent Lab/Herber Results: Laboratory Tests 08/02 08/02 08/02 08/02 08/01 0745 0600 0120 0120 1810 Chemistry Sodium (137 - 145 mmol/L) Pending 132 L 131 L Potassium (3.5 - 5.1 mmol/L) Pending 5.5 H 5.7 H Chloride (98 - 107 mmol/L) Pending 102 101 Carbon Dioxide (22 - 30 mmol/L) Pending 17 L 18 L Anion Gap (5 - 16) Pending 13 12 BUN (9 - 20 mg/dL) Pending 40 H 39 H Creatinine (0.7 - 1.2 mg/dL) Pending 3.4 H 3.4 H Estimated GFR (>60 ml/min) 20 L 20 L BUN/Creatinine Ratio (7 - 25 %) Pending 11.8 11.5 Lactic Acid (0.7 - 2.1 mmol/L) 3.5 H 3.6 H Calcium (8.4 - 10.2 mg/dL) Pending 11.2 H 10.9 H Phosphorus Pending Magnesium Pending Total Bilirubin Pending Direct Bilirubin Pending AST Pending ALT Pending Alkaline Phosphatase Pending Total Protein Pending Albumin (3.5 - 5.0 g/dL) Pending 2.5 L 2.4 L Coagulation APTT (25 - 37 SEC) 97 H Hematology CBC w Diff Pending WBC Pending RBC Pending Hgb Pending Hct Pending MCV Pending MCH Pending MCHC Pending RDW Pending Plt Count Pending MPV Pending Other Body Source Fluid Total Protein Cancelled 08/01 08/01 08/01 08/01 08/01 1525 1400 1138 1138 1127 Chemistry Sodium (137 - 145 mmol/L) 132 L Potassium (3.5 - 5.1 mmol/L) 5.2 H Chloride (98 - 107 mmol/L) 102 Carbon Dioxide (22 - 30 mmol/L) 17 L Anion Gap (5 - 16) 13 BUN (9 - 20 mg/dL) 38 H Creatinine (0.7 - 1.2 mg/dL) 3.3 H Estimated GFR (>60 ml/min) 21 L BUN/Creatinine Ratio (7 - 25 %) 11.5 Lactic Acid (0.7 - 2.1 mmol/L) 3.7 H 4.0 H Cancelled Calcium (8.4 - 10.2 mg/dL) Cancelled 10.7 H Albumin (3.5 - 5.0 g/dL) 2.1 L 08/01 08/01 0900 0940 Urines Urinalysis MOD H Urine Color (YEL,AMB,STR) BROWN H Urine Clarity (CLEAR) TURBD H Urine pH (5.0 - 8.0) 5.5 Ur Specific [place] (1.001 - 1.035) 1.025 Urine Protein (NEG,<30 MG/DL) 30 H Urine Ketones (NEG) NEG Urine Nitrite (NEG) POS H Urine Bilirubin (NEG) POS@ICTO H Urine Urobilinogen (0.1 - 1.0 EU/dl) 1.0 Ur Leukocyte Esterase (NEG) TRACE H Ur Microscopic SEDIMENT EXAMINED Urine RBC (0 - 5 /HPF) >75 H Urine WBC (0 - 2 /HPF) 5-10 H Urine Bacteria (NEG/NONE) FEW H Urine Hemoglobin (NEG) LARGE H Urine Osmolality (300 - 1000 MOSM/KG) 351 Ur Random Creatinine (mg/dL) 216.8 Ur Random Sodium (30 - 90 mmol/L) 12 L Ur Random Potassium (mmol/L) 45.4 Fraction Sodium Excret (<1% %) 0.1 Urine Glucose (N MG/DL) NEG
[2017-08-02 08:51] LABS: ABSOLUTE BASOPHIL COUNT 0 /CUMM (0.0-0.2); ABSOLUTE EOSINOPHIL COUNT 0.1 /CUMM (0.0-0.7); ABSOLUTE GRANULOCYTE CT 10.3 /CUMM (1.4-6.5); ABSOLUTE LYMPH COUNT 3.1 /CUMM (1.2-3.4); ABSOLUTE MONOCYTE COUNT 0.9 /CUMM (0.10-0.60); BASOPHIL % 0.3 % (0.0-2.0); GRANULOCYTE % 71.2 % (42.2-75.2); HEMATOCRIT 40.7 % (42-52); MEAN CORPUSCULAR HGB 29.8 PG (27.0-31.0); MEAN CORPUSCULAR HGB CONC 33.2 G/DL (33.0-37.0); MEAN CORPUSCULAR VOLUME 89.7 FL (80.0-94.0); PLATELET COUNT 249 /CUMM (130-400); RBC DISTRIBUTION WIDTH 21.5 % (11.5-14.5); RED BLOOD CELL CT 4.53 /CUMM (4.70-6.10); WHITE BLOOD CELL COUNT 14.5 /CUMM (4.8-10.8)
--- NOTE | 2017-08-02 12:48 | PN- Nephrology ---
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 Although HRS is technically a diagnosis of exclusion, his hypotension, hyponatremia, and signs of poor synthetic function (low albumin and elevated INR with imaging suggestive of mets throughout liver) in the setting of a low urine sodium highly suggest this as the underlying diagnosis. He has been started on empiric treatment. We should also evaluate for renal venous drainage given the abnormalities in his prior imaging. Although abd compartment syndrome on the differential, his abd is not tense and I think this is less likely. Should note that with his comorbidities, dialysis would not be an option. Family meeting this afternoon. Hyponatremia - hypotonic - clearly hypervolemic - elevated urine osm suggestive of high ADH state - clear hemodynamic stimulus for ADH secretion. For now the best treatment with be as above for presumed HRS as well as free water restriction - Na has been stable with this. Suggestion: -Family meeting - unfortunately I will be unable to attend -Increase Midodrine to 10mg TID, Increase Octreotide to 200mcg TID, cont 25% albumin q8 -Renal US with doppler to evaluate renal venous flow -800cc/day fluid restriction Please call [phone] with ?'s Subjective Subjective: SCr 3.5 Getting midodrine, octreotide, albumin BP 100/60 Remains confused T Bili up Ca 11.2 with albumin 2.5 s/p pamidronate DNR/DNI Objective Vital Signs and I&Os Vital Signs Date Time Temp Pulse Resp B/P B/P Pulse O2 O2 Flow FiO2 Mean Ox Delivery Rate 08/02 0642 97.4 86 20 100/60 95 Room Air / 0000 97 Room Air / 2219 97.3 82 20 100/60 97 Room Air / 1440 97.5 84 20 98/65 100 Room Air Intake & Output 08/02 1600 08/02 0400 08/01 1600 08/01 0400 07/31 1600 07/31 0400 Intake Total 296.2 354 1220 0 Output Total 60 0 Balance 236.2 354 1220 0 Intake, IV 176.2 104 1100 Intake, Oral 120 250 120 0 Number 0 1 Bowel Movements Output, 60 Emesis Output, Urine 0 Patient 220 lb 220 lb Weight Weight Reported by Patient Measurement Method Physical Exam: Gen - ill appearing HEENT - icteric sclera CV - RRR, no m/r/g Chest - clear anteriorly Abd - distended, nontender Ext - +++edema Neuro - confused Current Medications: Current Medications Sig/[place] Start time Last Medication Dose Route Stop Time Status Admin Albumin Human 25 GM TID 08/01 1600 AC 08/02 IV 1002 Heparin Sodium/ 25,000 UNIT Q24H 08/01 1715 DC 08/01 Dextrose IV 1914 Dextrose/Water 500 ML Hydromorphone HCl 1 MG Q6-PRN PRN 08/01 1630 AC 08/01 IV 1627 Lactulose 20 GM TID / 1000 AC 08/02 PO 1153 Midodrine 5 MG 0800,1200,1600 08/01 1245 AC 08/02 PO 1148 Montelukast Sodium 10 MG 2200 08/01 2200 AC 08/01 PO 2146 Octreotide Acetate 100 MCG TID 08/01 1238 AC 08/02 SC 1003 Ondansetron HCl 4 MG Q8 PRN 07/31 2345 AC / PO 1114 Pamidronate Disodium 30 MG Q24H 08/02 0945 AC 08/02 Sodium Chloride 1,000 ML IV 08/03 0944 1009 Pamidronate Disodium 60 MG ONE ONE 08/02 0845 CAN IV 08/02 0846 Pamidronate Disodium 60 MG .Q24H / 0130 DC 08/01 Sodium Chloride 1,000 ML IV / 0129 0226 Rifaximin 550 MG BID 08/01 1000 AC 08/02 PO 1151 Senna/Docusate Sodium 2 TAB AT BEDTIME 08/01 2200 AC PO Sodium Chloride 1 SPRAY Q4H PRN 07/31 2345 AC [place] Sodium Polystyrene 60 ML ONCE ONE 08/02 0545 DC 08/02 Sulfonate VA 08/02 0546 0650 Sodium Polystyrene 60 ML ONCE ONE 08/01 2230 DC 08/02 Sulfonate VA / 2231 0105 Results Pertinent Lab Results: Laboratory Tests 08/02 08/02 08/02 0945 0745 0600 Chemistry Sodium (137 - 145 mmol/L) 131 L Potassium (3.5 - 5.1 mmol/L) 5.6 H Chloride (98 - 107 mmol/L) 102 Carbon Dioxide (22 - 30 mmol/L) 16 L Anion Gap (5 - 16) 13 BUN (9 - 20 mg/dL) 41 H Creatinine (0.7 - 1.2 mg/dL) 3.5 H Estimated GFR (>60 ml/min) 19 L BUN/Creatinine Ratio (7 - 25 %) 11.7 Calcium (8.4 - 10.2 mg/dL) 11.2 H Phosphorus (2.5 - 4.5 mg/dL) 5.3 H Magnesium (1.6 - 2.3 mg/dL) 2.2 Total Bilirubin (0.2 - 1.3 mg/dL) 10.2 H Direct Bilirubin (< 0.4 mg/dL) 8.4 H AST (17 - 59 U/L) 246 H ALT (21 - 72 U/L) 98 H Alkaline Phosphatase (< 127 U/L) 256 H Total Protein (6.3 - 8.2 g/dL) 6.3 Albumin (3.5 - 5.0 g/dL) 2.5 L Coagulation APTT Cancelled Hematology CBC w Diff NO MAN DIFF REQ WBC (4.8 - 10.8 /CUMM) 14.5 H RBC (4.70 - 6.10 /CUMM) 4.53 L Hgb (14.0 - 18.0 G/DL) 13.5 L Hct (42 - 52 %) 40.7 L MCV (80.0 - 94.0 FL) 89.7 MCH (27.0 - 31.0 PG) 29.8 MCHC (33.0 - 37.0 G/DL) 33.2 RDW (11.5 - 14.5 %) 21.5 H Plt Count (130 - 400 /CUMM) 249 MPV (7.4 - 10.4 FL) 9.0 Gran % (42.2 - 75.2 %) 71.2 Lymphocytes % (20.5 - 51.1 %) 21.3 Monocytes % (1.7 - 9.3 %) 6.2 Eosinophils % (0 - 5 %) 1.0 Basophils % (0.0 - 2.0 %) 0.3 Absolute Granulocytes (1.4 - 6.5 /CUMM) 10.3 H Absolute Lymphocytes (1.2 - 3.4 /CUMM) 3.1 Absolute Monocytes (0.10 - 0.60 /CUMM) 0.9 H Absolute Eosinophils (0.0 - 0.7 /CUMM) 0.1 Absolute Basophils (0.0 - 0.2 /CUMM) 0 Other Body Source Fluid Total Protein Cancelled 08/02 08/02 08/01 08/01 08/01 0120 0120 1810 1525 1400 Chemistry Sodium (137 - 145 mmol/L) 132 L 131 L Potassium (3.5 - 5.1 mmol/L) 5.5 H 5.7 H Chloride (98 - 107 mmol/L) 102 101 Carbon Dioxide (22 - 30 mmol/L) 17 L 18 L Anion Gap (5 - 16) 13 12 BUN (9 - 20 mg/dL) 40 H 39 H Creatinine (0.7 - 1.2 mg/dL) 3.4 H 3.4 H Estimated GFR (>60 ml/min) 20 L 20 L BUN/Creatinine Ratio (7 - 25 %) 11.8 11.5 Lactic Acid (0.7 - 2.1 mmol/L) 3.5 H 3.6 H 3.7 H Calcium (8.4 - 10.2 mg/dL) 11.2 H 10.9 H Cancelled Albumin (3.5 - 5.0 g/dL) 2.5 L 2.4 L Coagulation APTT (25 - 37 SEC) 97 H 08/01 08/01 08/01 1138 1138 1127 Chemistry Sodium (137 - 145 mmol/L) 132 L Potassium (3.5 - 5.1 mmol/L) 5.2 H Chloride (98 - 107 mmol/L) 102 Carbon Dioxide (22 - 30 mmol/L) 17 L Anion Gap (5 - 16) 13 BUN (9 - 20 mg/dL) 38 H Creatinine (0.7 - 1.2 mg/dL) 3.3 H Estimated GFR (>60 ml/min) 21 L BUN/Creatinine Ratio (7 - 25 %) 11.5 Lactic Acid (0.7 - 2.1 mmol/L) 4.0 H Cancelled Calcium (8.4 - 10.2 mg/dL) 10.7 H Albumin (3.5 - 5.0 g/dL) 2.1 L 08/01 08/01 08/01 0941 7325 9675 Chemistry Calcium (8.4 - 10.2 mg/dL) 10.8 H Urines Urinalysis MOD H Urine Color (YEL,AMB,STR) BROWN H Urine Clarity (CLEAR) TURBD H Urine pH (5.0 - 8.0) 5.5 Ur Specific Calera (1.001 - 1.035) 1.025 Urine Protein (NEG,<30 MG/DL) 30 H Urine Ketones (NEG) NEG Urine Nitrite (NEG) POS H Urine Bilirubin (NEG) POS@ICTO H Urine Urobilinogen (0.1 - 1.0 EU/dl) 1.0 Ur Leukocyte Esterase (NEG) TRACE H Ur Microscopic SEDIMENT EXAMINED Urine RBC (0 - 5 /HPF) >75 H Urine WBC (0 - 2 /HPF) 5-10 H Urine Bacteria (NEG/NONE) FEW H Urine Hemoglobin (NEG) LARGE H Urine Osmolality (300 - 1000 MOSM/KG) 351 Ur Random Creatinine (mg/dL) 216.8 Ur Random Sodium (30 - 90 mmol/L) 12 L Ur Random Potassium (mmol/L) 45.4 Fraction Sodium Excret (<1% %) 0.1 Urine Glucose (N MG/DL) NEG 08/01 07/31 07/31 0755 2345 2345 Chemistry Sodium (137 - 145 mmol/L) 130 L Potassium (3.5 - 5.1 mmol/L) 5.6 H Chloride (98 - 107 mmol/L) 101 Carbon Dioxide (22 - 30 mmol/L) 17 L Anion Gap (5 - 16) 12 BUN (9 - 20 mg/dL) 37 H Creatinine (0.7 - 1.2 mg/dL) 3.3 H Estimated GFR (>60 ml/min) 21 L BUN/Creatinine Ratio (7 - 25 %) 11.2 Serum Osmolality (285 - 295 MOSM/KG) 283 L Total Bilirubin (0.2 - 1.3 mg/dL) 8.2 H Direct Bilirubin (< 0.4 mg/dL) 6.9 H AST (17 - 59 U/L) 362 H ALT (21 - 72 U/L) 115 H Alkaline Phosphatase (< 127 U/L) 295 H Total Protein (6.3 - 8.2 g/dL) 6.3 Albumin (3.5 - 5.0 g/dL) 2.1 L Triglycerides (<150 mg/dL) 98 Cholesterol (< 200 MG/DL) 116 LDL Cholesterol, Calc (65 - 129 mg/dL) 85 HDL Cholesterol (40 - 60 mg/dL) 12 L Cholesterol/HDL Ratio (0.00 - 4.88 %) 10 H Coagulation PT (9.4 - 12.5 SEC) 21.9 H INR (0.90 - 1.17) 2.00 H Hematology CBC w Diff NO MAN DIFF REQ WBC (4.8 - 10.8 /CUMM) 16.0 H RBC (4.70 - 6.10 /CUMM) 4.66 L Hgb (14.0 - 18.0 G/DL) 13.9 L Hct (42 - 52 %) 42.5 MCV (80.0 - 94.0 FL) 91.1 MCH (27.0 - 31.0 PG) 29.7 MCHC (33.0 - 37.0 G/DL) 32.7 L RDW (11.5 - 14.5 %) 22.0 H Plt Count (130 - 400 /CUMM) 262 MPV (7.4 - 10.4 FL) 9.1 Gran % (42.2 - 75.2 %) 63.8 Lymphocytes % (20.5 - 51.1 %) 27.2 Monocytes % (1.7 - 9.3 %) 8.0 Eosinophils % (0 - 5 %) 0.5 Basophils % (0.0 - 2.0 %) 0.5 Absolute Granulocytes (1.4 - 6.5 /CUMM) 10.2 H Absolute Lymphocytes (1.2 - 3.4 /CUMM) 4.4 H Lymphocytes (%) 12 Absolute Monocytes (0.10 - 0.60 /CUMM) 1.3 H Absolute Eosinophils (0.0 - 0.7 /CUMM) 0.1 Absolute Basophils (0.0 - 0.2 /CUMM) 0.1 % Normal PMNs (%) 55 Other Body Source Fluid WBC (0 - 5 /CUMM) 200 H Fld Mesothelial Cells (%) 33 Fld Total RBCs Counted (0 /CUMM) 56513 H Fluid Glucose (mg/dL) 79 Fluid Total Protein (g/dL) < 2.0 Fluid Albumin (g/dL) < 1.0 Fluid LDH (U/L) 310 07/312 2004 Chemistry Sodium (137 - 145 mmol/L) 127 L Potassium (3.5 - 5.1 mmol/L) 5.1 Chloride (98 - 107 mmol/L) 99 Carbon Dioxide (22 - 30 mmol/L) 19 L Anion Gap (5 - 16) 9 BUN (9 - 20 mg/dL) 36 H Creatinine (0.7 - 1.2 mg/dL) 3.0 H Estimated GFR (>60 ml/min) 23 L BUN/Creatinine Ratio (7 - 25 %) 12.0 Glucose (65 - 99 mg/dL) 82 Lactic Acid (0.7 - 2.1 mmol/L) 4.3 H 4.8 H Calcium (8.4 - 10.2 mg/dL) 11.0 H Phosphorus (2.5 - 4.5 mg/dL) 4.7 H Magnesium (1.6 - 2.3 mg/dL) 2.1 Total Bilirubin (0.2 - 1.3 mg/dL) 7.9 H AST (17 - 59 U/L) 452 H ALT (21 - 72 U/L) 130 H Alkaline Phosphatase (< 127 U/L) 313 H Ammonia (9 - 30 umol/L) 10 Total Protein (6.3 - 8.2 g/dL) 6.1 L Albumin (3.5 - 5.0 g/dL) 2.0 L Globulin (1.9 - 4.2 gm/dL) 4.1 Albumin/Globulin Ratio (1.1 - 2.2 %) 0.5 L Lipase (23 - 300 U/L) 63 Coagulation PT (9.4 - 12.5 SEC) 21.7 H INR (0.90 - 1.17) 2.08 H APTT (25 - 37 SEC) 69 H Hematology CBC w Diff MAN DIFF ORDERED WBC (4.8 - 10.8 /CUMM) 17.0 H RBC (4.70 - 6.10 /CUMM) 4.82 Hgb (14.0 - 18.0 G/DL) 14.1 Hct (42 - 52 %) 44.4 MCV (80.0 - 94.0 FL) 92.1 MCH (27.0 - 31.0 PG) 29.1 MCHC (33.0 - 37.0 G/DL) 31.6 L RDW (11.5 - 14.5 %) 22.0 H Plt Count (130 - 400 /CUMM) 294 MPV (7.4 - 10.4 FL) 8.5 Gran % (42.2 - 75.2 %) 68.5 Lymphocytes % (20.5 - 51.1 %) 21.0 Monocytes % (1.7 - 9.3 %) 9.3 Eosinophils % (0 - 5 %) 0.8 Basophils % (0.0 - 2.0 %) 0.4 Absolute Granulocytes (1.4 - 6.5 /CUMM) 11.7 H Segmented Neutrophils (42.2 - 75.2 %) 79 H Band Neutrophils (0.0 - 5.0 %) 1 Absolute Lymphocytes (1.2 - 3.4 /CUMM) 3.6 H Lymphocytes (20.5 - 51.1 %) 13 L Monocytes (1.7 - 9.3 %) 7 Absolute Monocytes (0.10 - 0.60 /CUMM) 1.6 H Absolute Eosinophils (0.0 - 0.7 /CUMM) 0.1 Absolute Basophils (0.0 - 0.2 /CUMM) 0.1 Nucleated RBCs (0.0 - 0.0 /100WBC) 1 H Platelet Estimate (ADEQUATE) VERIFIED BY SMEAR Poikilocytosis FEW Anisocytosis 1+ Target Cells FEW Deanna Cells FEW Other Body Source Fld Total RBCs Counted (%) 100 Imaging/Other Studies: EXAM TYPE: CAT - CT ABD & PELVIS W/O IV CONTRAS EXAMINATION: CT ABDOMEN AND PELVIS WITHOUT CONTRAST CLINICAL INFORMATION: Acute renal failure. Assess for obstructive uropathy. COMPARISON: Abdominal MRI 05/15/2017. TECHNIQUE: Multidetector volumetric imaging was performed from the superior aspect of the liver through the pubic symphysis. Sagittal and coronal reformatted images were obtained on the technologist's workstation. DLP: 1724 mGy-cm FINDINGS: LUNG BASES: The visualized lung bases are unremarkable. PERITONEAL CAVITY: Large volume of ascites. LIVER, GALLBLADDER, AND BILIARY TREE: Numerous hepatic lesions are redemonstrated, replacing the majority of the hepatic parenchyma. Cholelithiasis versus hyperdense biliary sludge. No evidence of significant biliary ductal dilatation. PANCREAS: Unremarkable. SPLEEN: Unremarkable. ADRENAL GLANDS: Unremarkable. KIDNEYS AND URETERS: No hydronephrosis. There are a a few punctate nonobstructing calculi in the lower poles of the bilateral kidneys. No suspicious renal mass. BLADDER: Unremarkable. GASTROINTESTINAL TRACT: Bowel gas pattern is nonobstructive. No evidence of acute bowel pathology. Bowel surgical material in the right lower quadrant. The appendix is not visualized. ABDOMINAL WALL: Ascites tracks into the right inguinal canal. LYMPH NODES: No bulky adenopathy. VASCULAR: Minimal atherosclerotic calcification. PELVIC VISCERA: Ascites tracks into the pelvis. Prostate gland and seminal vesicles are unremarkable. OSSEOUS STRUCTURES: Multilevel lumbar Schmorl's nodes. No new osseous lesion demonstrated. There are subacute left rib fractures. IMPRESSION: 1. No evidence of obstructive uropathy. A couple bilateral nonobstructing tiny renal calculi. 2. Numerous hepatic lesions throughout the entirety of the liver, most consistent with malignancy. 3. Large volume of ascites.
[2017-08-02] MEDS ORDERED: LORAZEPAM2 MG/1 M3 SL (14:24)
[2017-08-02] MEDS ORDERED: DILAUDID1 MG/1 ML SL (14:24)
[2017-08-02] MEDS ORDERED: TRANSDERM-SCOP1 EAC1 TD (14:24)
[2017-08-02 15:07] VITALS: BP 100/62
--- NOTE | 2017-08-02 17:07 | ULTRASOUND REPORT ---
CLINICAL HISTORY: This patient is a 41 years old Male with ascites found on physical exam, who is referred to Interventional Radiology for ultrasound-guided paracentesis. PROCEDURE: Ultrasound-guided paracentesis. PHYSICIANS: Dr. Raven Munoz (attending). MEDICATIONS: 10 mL of 1% lidocaine SQ. COMPLICATIONS: None ESTIMATED BLOOD LOSS: <5 mL SPECIMENS: None IMPLANT: None. SITE MARKING: As part of the preprocedure verification policy, a site marking procedure was initiated. Due to the nature the procedure, the insertion site could not be predetermined thus invoking the policy of exemption to site laterality and marking. Insertion site marking was performed in the procedure room in conjunction with imaging confirmation. PROCEDURE NOTE: Informed consent was obtained from the patient prior to the procedure. During this process, the procedure and potential alternatives were explained along with the intended outcome and benefits. The risks of the procedure, including the possibility of an unsuccessful procedure, as well as the risk of not doing the procedure, were discussed. The patient was given the opportunity to ask questions regarding the procedure and appeared competent to make decisions. A signed consent form documenting this discussion was placed in the medical record. A time-out procedure was performed. Appropriate preprocedure medical history and imaging studies were reviewed. The patient was brought to the ultrasound room and placed in the supine position. A time-out procedure was performed. Ultrasound images of the abdomen were obtained to localize a large collection of ascites. Images were permanently saved to the record. An area of the right lower quadrant was prepped and draped in the standard sterile fashion. All elements of maximal sterile barrier technique followed including use of cap, mask, sterile gown, sterile gloves, a sterile full body drape and hand hygiene. Also followed skin preparation with 2% chlorhexidine for cutaneous antisepsis, and sterile ultrasound preparation with sterile gel and probe cover when applicable. 10 mL of 1% lidocaine was used to obtain local anesthesia of the skin and deeper tissues. A standard small-bore needle was introduced to sample fluid and demonstrated a safe access route. There was no evidence of traversing adjacent organs or vascular structures. A 6-Fr [id number] closed needle/catheter system was utilized for access. 10.2 L of slightly turbid straw-colored fluid was aspirated before drainage ceased. The catheter was removed and sterile dressing applied. The patient tolerated the procedure well without evidence of complications. FINDINGS: Large simple abdominal ascites as detailed above. IMPRESSION: Successful ultrasound-guided therapeutic paracentesis. PLAN: The patient was stable after the procedure. The patient will be transferred to the floor.
[2017-08-02 22:56] VITALS: BP 91/50
[2017-08-03 06:27] VITALS: BP 94/52
--- NOTE | 2017-08-03 07:11 | PN- Oncology ---
Subjective Subjective: Patient remains very lethargic Objective Vital Signs and I&Os Vital Signs Date Time Temp Pulse Resp B/P B/P Pulse O2 O2 Flow FiO2 Mean Ox Delivery Rate 08/03 06 97.4 83 16 94/52 94 Room Air / 0000 95 Room Air 03/ 2340 18 08/02 2256 97.7 74 12 91/50 95 Room Air 03/ 1507 97.8 83 20 100/62 98 Intake & Output 08/03 0800 08/03 0000 08/02 1600 08/02 0800 / 0000 / 1600 Intake Total 0 561.5 296.2 354 820 Output Total 60 Balance 0 561.5 236.2 354 820 Intake, IV 211.5 176.2 104 700 Intake, Oral 0 350 120 250 120 Number 2 1 0 Bowel Movements Output, 60 Emesis Patient 220 lb Weight Weight Reported by Patient Measurement Method Gen.: in NAD, lethargic ENT: Sclera anicteric Chest: Normal respiratory effort, decreased breath sounds Cor: RRR, no extra sounds Abdomen: Soft, bowel sounds present, no tenderness, no rebound, ascites Extremities: Without clubbing, cyanosis, Neurology: Somnolent Current Medications: Current Medications Sig/[place] Start time Last Medication Dose Route Stop Time Status Admin Albumin Human 25 GM TID 08/01 1600 DC 08/02 IV 1002 Heparin Sodium/ 25,000 UNIT Q24H 08/01 1715 DC 03 Dextrose IV 1914 Dextrose/Water 500 ML Hydromorphone HCl 1 MG Q2 HRS NEEDED PRN 08/02 1445 CAN IV Hydromorphone HCl 1 MG Q6-PRN PRN 08/01 1630 DC 03/ IV 1627 Lactulose 20 GM TID /04 1000 DC 03/ PO 1153 Lidocaine 1 ML .STK-MED ONE 08/02 1631 DC ID 08/02 1632 Lorazepam 2 MG Q2 HRS NEEDED PRN / 1445 AC IV Midodrine 5 MG 0800,1200,1600 / 1245 DC 03/ PO 1148 Montelukast Sodium 10 MG 2200 08/01 2200 DC 03/ PO 2146 Morphine Sulfate 6 MG Q2P PRN 08/02 1445 AC 08/03 IV 0331 Octreotide Acetate 100 MCG TID / 1238 DC 03 SC 1003 Ondansetron HCl 4 MG Q6-PRN PRN 08/02 1445 AC PO Ondansetron HCl 4 MG .STK-MED ONE 08/02 1059 DC IM 08/02 1100 Ondansetron HCl 4 MG Q8 PRN 07/31 2345 DC 08/02 PO 1114 Pamidronate Disodium 30 MG Q24H 08/02 0945 AC 08/02 Sodium Chloride 1,000 ML IV 08/03 0944 1009 Pamidronate Disodium 60 MG ONE ONE 08/02 0845 CAN IV 08/02 0846 Rifaximin 550 MG BID 08/01 1000 DC 08/02 PO 1151 Senna/Docusate Sodium 2 TAB AT BEDTIME 08/01 2200 DC PO Sodium Chloride 1 SPRAY Q4H PRN 07/31 2345 AC [place] Results Last 24 Hours of Lab Results: Laboratory Tests 08/02 08/02 08/02 UNK 0945 0745 Chemistry Sodium (137 - 145 mmol/L) 131 L Potassium (3.5 - 5.1 mmol/L) 5.6 H Chloride (98 - 107 mmol/L) 102 Carbon Dioxide (22 - 30 mmol/L) 16 L Anion Gap (5 - 16) 13 BUN (9 - 20 mg/dL) 41 H Creatinine (0.7 - 1.2 mg/dL) 3.5 H Estimated GFR (>60 ml/min) 19 L BUN/Creatinine Ratio (7 - 25 %) 11.7 Calcium (8.4 - 10.2 mg/dL) 11.2 H Phosphorus (2.5 - 4.5 mg/dL) 5.3 H Magnesium (1.6 - 2.3 mg/dL) 2.2 Total Bilirubin (0.2 - 1.3 mg/dL) 10.2 H Direct Bilirubin (< 0.4 mg/dL) 8.4 H AST (17 - 59 U/L) 246 H ALT (21 - 72 U/L) 98 H Alkaline Phosphatase (< 127 U/L) 256 H Total Protein (6.3 - 8.2 g/dL) 6.3 Albumin (3.5 - 5.0 g/dL) 2.5 L Coagulation APTT Cancelled Hematology CBC w Diff NO MAN DIFF REQ WBC (4.8 - 10.8 /CUMM) 14.5 H RBC (4.70 - 6.10 /CUMM) 4.53 L Hgb (14.0 - 18.0 G/DL) 13.5 L Hct (42 - 52 %) 40.7 L MCV (80.0 - 94.0 FL) 89.7 MCH (27.0 - 31.0 PG) 29.8 MCHC (33.0 - 37.0 G/DL) 33.2 RDW (11.5 - 14.5 %) 21.5 H Plt Count (130 - 400 /CUMM) 249 MPV (7.4 - 10.4 FL) 9.0 Gran % (42.2 - 75.2 %) 71.2 Lymphocytes % (20.5 - 51.1 %) 21.3 Monocytes % (1.7 - 9.3 %) 6.2 Eosinophils % (0 - 5 %) 1.0 Basophils % (0.0 - 2.0 %) 0.3 Absolute Granulocytes (1.4 - 6.5 /CUMM) 10.3 H Absolute Lymphocytes (1.2 - 3.4 /CUMM) 3.1 Absolute Monocytes (0.10 - 0.60 /CUMM) 0.9 H Absolute Eosinophils (0.0 - 0.7 /CUMM) 0.1 Absolute Basophils (0.0 - 0.2 /CUMM) 0 Other Body Source Fluid WBC Cancelled Fld Total RBCs Counted Cancelled Assessment/Plan Assessment/Recommendations: Advanced hepatocellular carcinoma with encephalopathy-overall status remains very poor. Given lack of improvement during this hospitalization, I would support comfort measures only. I will again attempt to talk to the family
--- NOTE | 2017-08-03 08:17 | PN- Endocrinology ---
Assessment/Plan Endoscopy Assessment: This patient has advanced hepatocellular carcinoma with hepatic encephalopathy and acute kidney injury possibly on the basis of hepatorenal syndrome. He developed hypercalcemia related to his tumor with production of PTH rp. His last calcium is 11.2 with an albumin of 2.5. Corrected calcium is 12.1. He has been treated for hypercalcemia with a pamidronate infusion.His renal function is stable He underwent a 10 L paracentesis yesterday. However his condition is not improving. He is being considered for comfort measures only. Plan: The patient is to finish the pamidronate infusion. Overall prognosis remains extremely poor. He is being considered for comfort measures only. Subjective Subjective: Does not answer questions appropriately Objective Last 24 Hrs of Vital Signs/I&O Vital Signs Date Time Temp Pulse Resp B/P B/P Pulse O2 O2 Flow FiO2 Mean Ox Delivery Rate 08/03 626 97.4 83 16 94/52 94 Room Air / 0000 95 Room Air 08/02 2340 18 08/02 2256 97.7 74 12 91/50 95 Room Air 08/02 1507 97.8 83 20 100/62 98 Intake & Output 08/03 1600 08/03 0800 03/ 0000 Intake Total 50 0 Output Total 400 Balance -350 0 Intake, Oral 50 0 Number 3 Bowel Movements Output, Urine 400 Vital Signs Date Time Temp Pulse Resp B/P B/P Pulse O2 O2 Flow FiO2 Mean Ox Delivery Rate 08/03 626 97.4 83 16 94/52 94 Room Air 03/ 0000 95 Room Air 08/02 2340 18 08/02 2256 97.7 74 12 91/50 95 Room Air / 1507 97.8 83 20 100/62 98 Intake & Output 08/03 1600 08/03 0800 03/ 0000 Intake Total 50 0 Output Total 400 Balance -350 0 Intake, Oral 50 0 Number 3 Bowel Movements Output, Urine 400 Physical Exam General Appearance: lethargic Head: normal appearance Neck: normal inspection Abdomen: distention Extremities: pedal edema Current Medications: Current Medications Sig/[place] Start time Last Medication Dose Route Stop Time Status Admin Albumin Human 25 GM TID 08/01 1600 DC 08/02 IV 1002 Heparin Sodium/ 25,000 UNIT Q24H 08/01 1715 DC 08/01 Dextrose IV 1914 Dextrose/Water 500 ML Hydromorphone HCl 1 MG Q2 HRS NEEDED PRN 08/02 1445 CAN IV Hydromorphone HCl 1 MG Q6-PRN PRN 08/01 1630 DC 03 IV 1627 Lactulose 20 GM TID 03/ 1000 DC 03 PO 1153 Lidocaine 1 ML .STK-MED ONE 08/02 1631 DC ID 08/02 1632 Lorazepam 2 MG Q2 HRS NEEDED PRN 08/02 1445 AC IV Midodrine 5 MG 0800,1200,1600 03 1245 DC 03 PO 1148 Montelukast Sodium 10 MG 2200 08/01 2200 DC 03 PO 2146 Morphine Sulfate 6 MG Q2P PRN 08/02 1445 AC 08/03 IV 0331 Octreotide Acetate 100 MCG TID 08/01 1238 DC 03 SC 1003 Ondansetron HCl 4 MG Q6-PRN PRN 08/02 1445 AC PO Ondansetron HCl 4 MG .STK-MED ONE 08/02 1059 DC IM 08/02 1100 Ondansetron HCl 4 MG Q8 PRN 07/31 2345 DC 03 PO 1114 Pamidronate Disodium 30 MG Q24H 08/02 0945 AC 03 Sodium Chloride 1,000 ML IV 08/03 0944 1009 Pamidronate Disodium 60 MG ONE ONE 08/02 0845 CAN IV 08/02 0846 Rifaximin 550 MG BID 04 1000 DC 03 PO 1151 Senna/Docusate Sodium 2 TAB AT BEDTIME 08/01 2200 DC PO Sodium Chloride 1 SPRAY Q4H PRN 07/31 2345 AC [place] Results Pertinent Lab/Herber Results: Laboratory Tests 08/02 08/02 UNK 0945 Coagulation APTT Cancelled Other Body Source Fluid WBC Cancelled Fld Total RBCs Counted Cancelled
--- NOTE | 2017-08-03 09:13 | PN- Housestaff ---
See Addendum Subjective Follow-up For: HRS Subjective: No overnight events. Patient was made PILE HEADER yesterday after family discussion and will be evaluated for inpatient hospice today. Review of Systems Constitutional: Reports: no symptoms. EENTM: Reports: no symptoms. Cardiovascular: Reports: no symptoms. Respiratory: Reports: no symptoms. Gastrointestinal: Reports: no symptoms. Genitourinary: Reports: no symptoms. Musculoskeletal: Reports: no symptoms. Skin: Reports: no symptoms. Neurological/Psychological: Reports: no symptoms. Hematologic/Endocrine: Reports: no symptoms. Immunologic/Allergic: Reports: no symptoms. Objective Last 24 Hrs of Vital Signs/I&O Vital Signs Date Time Temp Pulse Resp B/P B/P Pulse O2 O2 Flow FiO2 Mean Ox Delivery Rate 08/03 626 97.4 83 16 94/52 94 Room Air 03/ 0000 95 Room Air / 2340 18 / 2256 97.7 74 12 91/50 95 Room Air / 1507 97.8 83 20 100/62 98 Intake & Output 08/03 1600 / 0800 / 0000 Intake Total 50 0 Output Total 400 Balance -350 0 Intake, Oral 50 0 Number 3 Bowel Movements Output, Urine 400 Physical Exam General Appearance: sleeping comfortably Current Medications: Current Medications Sig/[place] Start time Last Medication Dose Route Stop Time Status Admin Albumin Human 25 GM TID 08/01 1600 DC 08/02 IV 1002 Hydromorphone HCl 1 MG Q2 HRS NEEDED PRN 08/02 1445 CAN IV Hydromorphone HCl 1 MG Q6-PRN PRN 08/01 1630 DC 03 IV 1627 Lactulose 20 GM TID / 1000 DC 03 PO 1153 Lidocaine 1 ML .STK-MED ONE 08/02 1631 DC ID 08/02 1632 Lorazepam 2 MG Q2 HRS NEEDED PRN / 1445 AC IV Midodrine 5 MG 0800,1200,1600 03/ 1245 DC 03/ PO 1148 Montelukast Sodium 10 MG 2200 / 2200 DC 03/ PO 2146 Morphine Sulfate 6 MG Q2P PRN / 1445 AC 03/06 IV 0331 Octreotide Acetate 100 MCG TID / 1238 DC 03 SC 1003 Ondansetron HCl 4 MG Q6-PRN PRN 08/02 1445 AC PO Ondansetron HCl 4 MG .STK-MED ONE 08/02 1059 DC IM 08/02 1100 Ondansetron HCl 4 MG Q8 PRN 07/31 2345 DC 08/02 PO 1114 Pamidronate Disodium 30 MG Q24H 08/02 0945 AC 08/02 Sodium Chloride 1,000 ML IV 08/03 0944 1009 Pamidronate Disodium 60 MG ONE ONE 08/02 0845 CAN IV 08/02 0846 Rifaximin 550 MG BID 08/01 1000 DC 08/02 PO 1151 Senna/Docusate Sodium 2 TAB AT BEDTIME 08/01 2200 DC PO Sodium Chloride 1 SPRAY Q4H PRN 07/31 2345 AC [place] Last 24 Hrs of Lab/Herber Results Last 24 Hrs of Labs/Mics: Laboratory Tests 08/02/17 1000: Fluid WBC Cancelled, Fld Total RBCs Counted Cancelled 08/02/17 0945: APTT Cancelled Assessment/Plan Assessment: 41 yo M with h/o hepatocellular carcinoma on sorafinib, requiring weekly therapeutic paracentesis, hyponatremia, recently admitted to [facility] (Jul 2017) for hepatic encephalopathy, hypercalcemia and 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 After family discussion yesterday, the patient was made PILE HEADER and will be evaluated for inpatient hospice. Problem list: 1. Comfort measures only 2. End-stage hepatorenal syndrome #PILE HEADER: Patient is resting comfortably. He did have 10.2 L of ascitic fluid drained yesterday. -Morphine as needed -Lorazepam as needed -Ondansetron as needed -Inpatient hospice evaluation today No DVT prophylaxis Regular diet PILE HEADER Problem List: 1. Hepatorenal syndrome 2. Comfort measures only status Pain Ratin Pain Location: no Pain Goal: Remain pain free Pain Plan: see a/p Tomorrow's Labs & Rationales: no labs
[2017-08-03 13:41] VITALS: BP 80/50
[2017-08-03 22:14] VITALS: BP 81/51
[2017-08-04 06:39] VITALS: BP 96/62
--- NOTE | 2017-08-04 07:07 | PN- Housestaff ---
See Addendum Subjective Follow-up For: HRS, NURSE HEALTHCARE MANAGER Subjective: No overnight events. Patient is resting comfortably. Review of Systems Constitutional: Reports: no symptoms. EENTM: Reports: no symptoms. Cardiovascular: Reports: no symptoms. Respiratory: Reports: no symptoms. Gastrointestinal: Reports: no symptoms. Genitourinary: Reports: no symptoms. Musculoskeletal: Reports: no symptoms. Skin: Reports: no symptoms. Neurological/Psychological: Reports: no symptoms. Hematologic/Endocrine: Reports: no symptoms. Immunologic/Allergic: Reports: no symptoms. Objective Last 24 Hrs of Vital Signs/I&O Vital Signs Date Time Temp Pulse Resp B/P B/P Pulse O2 O2 Flow FiO2 Mean Ox Delivery Rate 08/04 0639 98.9 96 16 96/62 94 Room Air 08/03 2214 97.8 63 16 81/51 95 Room Air 08/03 1600 Room Air 08/03 1341 97.7 74 16 80/50 96 Room Air Intake & Output 08/04 0800 08/04 0000 08/03 1600 Intake Total 0 10 Output Total 150 150 Balance -150 0 -140 Intake, Oral 0 10 Number 0 2 Bowel Movements Output, Urine 150 150 Physical Exam General Appearance: resting comfortably, ill appearing Current Medications: Current Medications Sig/[place] Start time Last Medication Dose Route Stop Time Status Admin Lorazepam 2 MG Q2 HRS NEEDED PRN 08/02 1445 AC IV Morphine Sulfate 2 MG Q2P PRN 08/03 1315 AC 08/03 IV 2003 Morphine Sulfate 6 MG Q2P PRN 08/02 1445 DC 08/03 IV 0331 Ondansetron HCl 4 MG Q6-PRN PRN 08/02 1445 AC PO Pamidronate Disodium 30 MG Q24H 08/02 0945 DC 08/02 Sodium Chloride 1,000 ML IV 08/03 0944 1009 Sodium Chloride 1 SPRAY Q4H PRN 07/31 2345 AC CL[place]ON Assessment/Plan Assessment: 41 yo M with h/o hepatocellular carcinoma on sorafinib, requiring weekly therapeutic paracentesis, hyponatremia, recently admitted to [facility] (Jul 2017) for hepatic encephalopathy, hypercalcemia and IVC thrombus who presented with hepatorenal syndrome. Problem list: 1. Comfort measures only 2. Metabolic encephalopathy 3. Hepatorenal syndrome 4. Hepatocellular carcinoma, stage IV 5. Hypercalcemia of malignancy 6. IVC thrombus 7. Lactic acidosis 8. Sacral decubitus ulcer #NURSE HEALTHCARE MANAGER: After family discussion, patient was made NURSE HEALTHCARE MANAGER and is going to be inpatient hospice. However first he will receive a Pleurx abdominal catheter for comfort. Patient is resting comfortably this morning. -Morphine as needed -Lorazepam as needed -Ondansetron as needed -Inpatient hospice evaluation today -No further lab draws No DVT prophylaxis Regular diet NURSE HEALTHCARE MANAGER Problem List: 1. Comfort measures only status 2. Hepatorenal syndrome Pain Ratin Pain Location: no Pain Goal: Remain pain free Pain Plan: see a/p Tomorrow's Labs & Rationales: no
[2017-08-04 12:42] VITALS: BP 82/54
--- NOTE | 2017-08-04 17:06 | ULTRASOUND REPORT ---
PROCEDURE: ULTRASOUND AND FLUOROSCOPIC GUIDED ABDOMINAL PLEURX CATHETER PLACEMENT. INDICATION: 41-year-old male with hepatocellular carcinoma and recurrent large volume ascites. SPECIMEN: No specimen was requested. ACCESS: 5 Armenian Yueh needle INTERVENTIONAL RADIOLOGIST: Morgan Simon M.D. CONSENT: Informed consent was obtained from the patient's mother prior to the procedure. During this process, the procedure and potential alternatives were explained along with the intended outcome and benefits. The risks of the procedure, including the possibility of an unsuccessful procedure as well as the risk of not doing the procedure were discussed. The patient's mother was given the opportunity to ask any questions regarding the procedure. The patient's status as comfort care was also discussed with the patient's mother. It is her wish that if an event occurred during the procedure that he did not undergo any life saving measures. The patient will therefore remain DNR/DNI throughout today's procedure. A signed consent form which documents this discussion was placed in the medical record. MEDICATIONS: -10 mL's 1% lidocaine -10 mL's 1% lidocaine with epinephrine. TECHNIQUE: Appropriate pre-procedure medical history and imaging studies were reviewed. The patient was brought to the ultrasound room and placed in the supine position. A timeout procedure was performed. Ultrasound images of the abdomen were obtained to localize a large collection of ascites. Images were permanently saved to the record. An area of the right lower quadrant was prepped and draped in the standard sterile fashion. 10 mL of 1% lidocaine was used to obtain local anesthesia of the skin and deeper tissues. A standard small bore needle was introduced to sample fluid and demonstrated a safe access route. There was no evidence of traversing adjacent organs or vascular structures. A small skin incision was made with a #11 blade. Next a Amplatz needle is advanced into the pleural fluid until the catheter could be advanced over the needle. A standard J-wire was advanced through the Amplatz catheter. A single fluoroscopic image was taken demonstrating the wire traversing across midline to the left hemiabdomen. Next an area medial and superior from the peritoneal puncture site was localized. After local anesthesia with lidocaine and lidocaine with epinephrine, a small skin incision was made and the blunt tunneling device was utilized to to tunnel the catheter to the peritoneal puncture site. Next serial dilation was performed over the wire and a peel-away sheath was placed into the peritoneum coursing into the pelvis. The catheter was advanced through the peel-away sheath and the sheath was removed. The puncture site was closed with absorbable sutures. The Pleurx catheter was secured using a single silk suture. A sterile dressing was placed over the site. FINDINGS: 1. Large volume ascites. 2. Successful ultrasound and fluoroscopic guided placement of abdominal Pleurx catheter. 3. Only approximately 200 mL were aspirated from the Pleurx catheter during the procedure to ensure proper positioning. COMPLICATIONS: The patient tolerated the procedure well without evidence of complications. FOLLOW-UP: Drainage will be managed by primary medical team on the floor. CONCLUSION: Ultrasound and fluoroscopic guided abdominal Pleurx catheter placement as described.
[2017-08-04 19:06] VITALS: BP 85/57
[2017-08-04 21:33] VITALS: BP 87/56
[2017-08-05 06:30] VITALS: BP 54/38
[2017-08-05 06:40] VITALS: BP 60/38
--- NOTE | 2017-08-05 07:05 | PN- Housestaff ---
See Addendum Subjective Follow-up For: HRS, PRIMER WATERPROOFING MACHINE ADJUSTER Subjective: Patient's blood pressure was dropping overnight. He received morphine for comfort and is now sleeping. Review of Systems Constitutional: Reports: no symptoms. EENTM: Reports: no symptoms. Cardiovascular: Reports: no symptoms. Respiratory: Reports: no symptoms. Gastrointestinal: Reports: no symptoms. Genitourinary: Reports: no symptoms. Musculoskeletal: Reports: no symptoms. Skin: Reports: no symptoms. Neurological/Psychological: Reports: no symptoms. Hematologic/Endocrine: Reports: no symptoms. Immunologic/Allergic: Reports: no symptoms. Objective Last 24 Hrs of Vital Signs/I&O Vital Signs Date Time Temp Pulse Resp B/P B/P Pulse O2 O2 Flow FiO2 Mean Ox Delivery Rate 08/05 0640 97.4 87 16 60/38 93 Room Air 08/05 0630 97.4 87 16 54/38 93 Room Air 08/05 0000 Room Air 08/04 2133 99.3 96 16 87/56 94 Room Air 08/04 1906 99.5 93 16 85/57 93 Room Air 08/04 1242 98.2 92 18 82/54 94 Room Air Intake & Output 08/05 0800 / 0000 /07 1600 Intake Total 0 0 Output Total 0 190 Balance 0 -190 Intake, Oral 0 0 Output, Urine 0 190 Physical Exam General Appearance: No Acute Distress Assessment/Plan Assessment: 41 yo M with h/o hepatocellular carcinoma on sorafinib requiring weekly therapeutic paracentesis, hyponatremia, recently admitted to [facility] (Jul 2017) for hepatic encephalopathy, hypercalcemia and IVC thrombus who presented with hepatorenal syndrome. Problem list: 1. Comfort measures only 2. Metabolic encephalopathy 3. Hepatorenal syndrome 4. Hepatocellular carcinoma, stage IV 5. Hypercalcemia of malignancy 6. IVC thrombus 7. Lactic acidosis 8. Sacral decubitus ulcer #PRIMER WATERPROOFING MACHINE ADJUSTER: After family discussion, patient was made PRIMER WATERPROOFING MACHINE ADJUSTER and is going to be inpatient hospice. He received a Pleurx catheter yesterday. Patient is resting comfortably this morning. -Morphine as needed -Lorazepam as needed -Ondansetron as needed -Inpatient hospice -No further lab draws No DVT prophylaxis Regular diet PRIMER WATERPROOFING MACHINE ADJUSTER Problem List: 1. Hepatorenal syndrome 2. Comfort measures only status Pain Ratin Pain Location: no pain Pain Goal: Remain pain free Pain Plan: see a/p Tomorrow's Labs & Rationales: no
== END 2017-08-05 13:30 | disposition hospice, home (50) | DRG 441 ==
LOC: ERH 19:53 → ERHI 21:54 → ENRESERV 22:14 → ENTRNSPT 22:48 → 2NA 08-01 00:07 → CMPTRNSPT 08-01 06:56 → 2NA 08-01 10:40 → ENPENDDIS 08-05 10:23 → 2NA 08-05 13:30
PROVIDERS: Internal Medicine; Physician Assistant Medical; Student in an Organized Health Care Education/Training Program
PROC: 0W9G3ZZ Drainage of Peritoneal Cavity, Percutaneous Approach (ICD-10-PCS; principal; 2017-08-02)
DX: K76.7 Hepatorenal syndrome (principal); G93.41 Metabolic encephalopathy; I82.220 Acute embolism and thrombosis of inferior vena cava; R18.0 Malignant ascites; L89.159 Pressure ulcer of sacral region, unspecified stage; N17.9 Acute kidney failure, unspecified; I95.9 Hypotension, unspecified; C22.0 Liver cell carcinoma; E87.2 Acidosis; D68.9 Coagulation defect, unspecified; E87.1 Hypo-osmolality and hyponatremia; R18.8 Other ascites; K72.90 Hepatic failure, unspecified without coma; E83.52 Hypercalcemia; Z51.5 Encounter for palliative care; F10.20 Alcohol dependence, uncomplicated; E78.5 Hyperlipidemia, unspecified; Z88.6 Allergy status to analgesic agent; Z88.5 Allergy status to narcotic agent; M85.80 Other specified disorders of bone density and structure, unspecified site; M54.9 Dorsalgia, unspecified; Z79.01 Long term (current) use of anticoagulants; Z66 Do not resuscitate; K74.60 Unspecified cirrhosis of liver; E66.9 Obesity, unspecified; Z68.30 Body mass index [BMI] 30.0-30.9, adult; E86.0 Dehydration
CPT/HCPCS: 04007; 2NAP; 2NASP; 84133; 84300; 87075; 36415; 36592; 71045; 74176; 75989; 81001; 82436; 82570; 87040; 87086; 93005; 93010; C1729; J1644; J2354; J2405; J2430; J3101; J7060; P9047

== ENCOUNTER 2017-08-05 13:31 | Inpatient (IN) | payer OTHER ==
[~2017-08-05 13:31] MED LIST changes: +ACEPHEN650 M1 PR; +DILAUDID1 MG/1 ML SL; +DULCOLAX10 M1 RC; +ENEMA133 M1 PR; +HYDROMORPHONE HC2 M1 PO; +LORAZEPAM2 MG/1 M3 SL; +MILK OF MA400 MG/52 PO; +SALINE NASAL SP30 ML NASB; +TRANSDERM-SCOP1 EAC1 TD; +TYLENOL325 M1 PO
--- NOTE | 2017-08-05 14:18 | History & Physical ---
General Information and HPI Chief Complaint: admit to hospice Source of Information: family, old records Exam Limitations: not alert/orientated, clinical condition Associated Symptoms: discomfort History of Present Illness: 41 yo M with h/o hepatocellular carcinoma on sorafinib requiring biweekly therapeutic paracentesis, hyponatremia, recently admitted to [facility] (Jul 2017) for hepatic encephalopathy, hypercalcemia and IVC thrombus who presented with hepatorenal syndrome. After family discussion, patient was made MANAGER SUPPLIER yesterday and is going to be inpatient hospice today due to significantly advanced disease with continued confusion, electrolyte imbalance, hypotension and poor prognosis. He received a Pleurx catheter yesterday for relief of abdominal pain secondary to ascitic fluid. He had been going for biweekly paracentesis as outpatient with removal of 6-10L fluid each time. He last had 10 L drained 08/02/17 and yesterday had 200cc drained at time of catheter placement. Allergies/Medications Allergies: Coded Allergies: NSAIDS (Non-Steroidal Anti-Inflamma (PER PT CANT TAKE DUE TO LIVER 05/27/17) codeine (PER PT VERY RAPID HEART RATE 05/27/17) Past History Medical History Neurological: intermittent confusion- hyperCa2+, PSE, HCC EENT: NONE Cardiovascular: hyperlipidemia Respiratory: NONE Gastrointestinal: NONE Hepatic: cirrhosis, hepatic encephalopathy, elevated enzymes multifocal HCC- unresectable, not cndidate for RFA- on Sorafenib Renal: resolved PHYLICIA- 04/2017 Musculoskeletal: chronic back pain, osteopenia Psychiatric: NONE Endocrine: hypoglycemia, osteopenia hyperCa2+ due to malignancy Blood Disorders: coagulopathy (cirrhotic/HCC) Cancer(s): 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 Psychosocial History: Single, mother and father living. Worked for [employer]. Functional Ability: Was recently in short term rehabilitation. Currently dependent for all ADLs/ IADLs Review of Systems Review of Systems Constitutional: Reports: see HPI. Exam & Diagnostic Data Last 24 Hrs of Vital Signs/I&O Vital Signs Date Time Temp Pulse Resp B/P B/P Pulse O2 O2 Flow FiO2 Mean Ox Delivery Rate 08/05 1438 98.6 90 16 68/43 94 Room Air Physical Exam General Appearance Mild Distress, ill-appearing, grimacing on touch HEENT sclera icteric, oral mucosa dry Cardiovascular Regular Rate, No Murmurs Lungs Clear to Auscultation, respirations unlabored Abdomen distended with drain abdomen RLQ Neurological drowsy but awakens to stimuli Extremities edema to all extremities Reproductive (MALE) gray catheter in place Last 24 Hrs of Labs/Herber: 08/02/17: CBC with WBC 14.5, Hgb 13.5, Hct 40.7, plt 249 chem with Na 131, K 5.6, Bun 41, Cr 3.5, Ca 11.2, AST 246, ALT 98, alb 2.5 08/01/17: INR 2.00 Diagnostic Data CXR Results 08/01/17: IMPRESSION: Limited by low lung volumes. No acute cardiopulmonary process is appreciated. Other Results 07/31/17: abdominal CT:IMPRESSION: 1. No evidence of obstructive uropathy. A couple bilateral nonobstructing tiny renal calculi. 2. Numerous hepatic lesions throughout the entirety of the liver, most consistent with malignancy. 3. Large volume of ascites. Assessment/Plan Assessment: 41-year-old male with advanced hepatocellular carcinoma with encephalopathy, cirrhosis and ascites s/p therapeutic Pleurx catheter placement for removal of ascitic fluid. Plan: Pt. 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 Morphine 2mg every 4 hours scheduled and every 1 hour as needed for dyspnea, pain Ativan 1 mg every 8 hours and every 4 hours as needed for anxiety/restlesness As needed scopolamine and robinul for secretions Drain pleurx catheter daily
[2017-08-05 14:38] VITALS: BP 68/43
--- NOTE | 2017-08-06 11:58 | Discharge Summary ---
Visit Information Visit Dates Admission Date: 08/05/17 Discharge Date: 08/06/17 Hospital Course Course Attending Physician: Selina Fuentes MD Primary Care Physician: Jordan Sim MD Hospital Course: 41-year-old male with advanced hepatocellular carcinoma with encephalopathy, cirrhosis and ascites s/p therapeutic Pleurx catheter placement for removal of ascitic fluid, admitted to hospice 08/05/17. Pt. was medicated with morphine for pain and dypnea, ativan for anxiety and Robinul for secretions. Pt. later in the evening with family at bedside. Allergies: Coded Allergies: NSAIDS (Non-Steroidal Anti-Inflamma (PER PT CANT TAKE DUE TO LIVER 05/27/17) codeine (PER PT VERY RAPID HEART RATE 05/27/17) Disposition Summary Disposition Principal Diagnosis: Hepatocellular carcinoma Liver cirrhosis with malignant ascites Additional Diagnosis: encephalopathy, metabolic Discharge Disposition: Discharge Instructions General Discharge Information Code Status: Hospice Patient's Diet: N/A Patient's Activity: N/A Follow-Up Instructions/Appts: N/A Copies To: Jordan Sim MD
== END 2017-08-06 01:00 | disposition expired | DRG 435 ==
LOC: 2NA 13:31
DX: C22.0 Liver cell carcinoma (principal); Z51.5 Encounter for palliative care; I82.220 Acute embolism and thrombosis of inferior vena cava; R18.0 Malignant ascites; K72.90 Hepatic failure, unspecified without coma; E87.1 Hypo-osmolality and hyponatremia; E87.2 Acidosis; E83.52 Hypercalcemia; E78.5 Hyperlipidemia, unspecified; K74.60 Unspecified cirrhosis of liver; Z88.6 Allergy status to analgesic agent; Z88.5 Allergy status to narcotic agent; Z85.3 Personal history of malignant neoplasm of breast
CPT/HCPCS: 2NAP